=== PATIENT | male | born 1955 | race Caucasian/White ===

== ENCOUNTER → 2020-11-10 15:36 | Outpatient (BNVA) | payer MEDICARE, SELFPAY | PROVIDERS: Visit Provider Urology | DX: R97.20 Elevated prostate specific antigen [PSA] (principal) | CPT/HCPCS: Q3014 ==

== ENCOUNTER 2020-11-19 09:28 | Day surgery (SDC) | payer MEDICARE, BC, SELFPAY ==
[2020-11-15 15:12] VITALS: BMI 21.9
--- NOTE | 2020-11-17 09:33 | HO.ANESPROP2 ---
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 Past Medical History Medical History Daily consumption of alcohol Smoker Surgical History Surgical History Hx of colonoscopy Social History Social History (Updated 11/19/20 @ 11:07 by Leela Fried) Alcohol intake: current Alcohol intake frequency: 3 or more drinks per day Alcohol type: beer Smoking Status: Current every day smoker Tobacco Type: Cigar Years Smoked: 50 Smoked in Last 30 Days: Yes Use of substances other than those prescribed or required for medical reasons: Yes Substance Use Type: Marijuana Substance Use Frequency: Weekly Advance Directives: No Advance Directives Information Provided: No Advance Directives on File: No Meds Allergies Allergy/AdvReac Type Severity Reaction Status Date / Time No Known Allergies Allergy Verified 11/15/20 13:30 Home Medications Medication Instructions Recorded Confirmed Type ascorbic acid (vitamin C) [Vitamin 500 mg PO DAILY 11/15/20 11/15/20 History C] cholecalciferol (vitamin D3) 25 mcg PO DAILY 11/15/20 11/15/20 History [Vitamin D3] multivitamin 1 tab PO DAILY 11/15/20 11/15/20 History Exam Exam Date and Time: November 17, 2020 0933 Height,Weight and Vital Signs: Height 6 ft 3 in Weight 79.379 kg Assessment and Plan Assessment Anesthesia Assessment: Chart Reviewed Documented by User: Leela Fried 11/19/20 11:12 PENDING SALE TO [facility] Past Medical History Medical History Daily consumption of alcohol Smoker Family History Family history of problems with anesthesia: No Surgical History Surgical History Hx of colonoscopy History of Problems with Anesthesia: No Social History Social History (Updated 11/19/20 @ 11:07 by Leela Fried) Alcohol intake: current Alcohol intake frequency: 3 or more drinks per day Alcohol type: beer Smoking Status: Current every day smoker Tobacco Type: Cigar Years Smoked: 50 Smoked in Last 30 Days: Yes Use of substances other than those prescribed or required for medical reasons: Yes Substance Use Type: Marijuana Substance Use Frequency: Weekly Advance Directives: No Advance Directives Information Provided: No Advance Directives on File: No Meds Allergies Allergy/AdvReac Type Severity Reaction Status Date / Time No Known Allergies Allergy Verified 11/15/20 13:30 Home Medications Medication Instructions Recorded Confirmed Type ascorbic acid (vitamin C) [Vitamin 500 mg PO DAILY 11/15/20 11/15/20 History C] cholecalciferol (vitamin D3) 25 mcg PO DAILY 11/15/20 11/15/20 History [Vitamin D3] multivitamin 1 tab PO DAILY 11/15/20 11/15/20 History Exam Height,Weight and Vital Signs: Vital Signs Temp Pulse Resp BP Pulse Ox 11/19/20 10:24 97.4 F 80 16 126/76 99 Airway Mallampati Class: II TM Dist: >3cm Neck ROM: Full Loose/Missing/Broken Teeth: No Heart: RRR Lungs: CTAB Assessment and Plan Assessment Anesthesia Assessment: Anesthesia Plan Discussed and Chart Reviewed Final Anesthetic Review ASA Class: III Final Preanesthetic Review: No Changes in Pt Med Stat, Meds/Allgs Chart Reviewed, Consent Obtained/Reviewed and Anes Risks/Benef Reviewed Patient Risk: Low Procedure Risk: Low Assessment/Block/Sedation in SS: Assess/Block/Sedation-SS Anesthetic Plan Anesthetic Plan: MAC: Disposition: Standard PACU
[2020-11-19 10:24] VITALS: BP 126/76; PULSE 80; RESP 16; TEMP 36.3; O2SAT 99
[2020-11-19] MEDS: Lactated Ringers 1,000 ML 100 ML IVCONT (10:33)
--- NOTE | 2020-11-19 11:27 | MHC.SHP ---
Pre-Procedural Eval Section A The patient is an INPATIENT: No Changes since office visit: No Cold of Flu in the past 2 weeks, No New Medical Problems, No Changes in Medication and No Patient answered all questions The History & Physical has been completed within 30 days and I have reviewed it.: Yes Section B Chief Complaint: melena Allergies: Allergies Allergy/AdvReac Type Severity Reaction Status Date / Time No Known Allergies Allergy Verified 11/15/20 13:30 Plan I have reviewed the history and physical and performed a pertinent physical examination on my patient. No changes have occurred unless specified.
[2020-11-19 11:56] VITALS: BP 87/53; PULSE 72; RESP 16; TEMP 36.1; O2SAT 97
--- NOTE | 2020-11-19 11:58 | PM.OP ---
Brief Operative Note Date of Service: 11/19/20 Pre-op diagnosis: blood in stool Post-op diagnosis: other (colon polyp, avm) Procedure: colonoscopy Surgeon: Rene Abreu Anesthesia: MAC Estimated blood loss (mL): 0 Pathology: other (polyp r colon) Condition: stable Disposition: PACU
[2020-11-19 12:04] VITALS: BP 92/54; PULSE 65; RESP 16; O2SAT 97
--- NOTE | 2020-11-19 12:09 | OP_ITS ---
SURGEON: Rene Abreu MD INDICATIONS: Blood in the stool. PREOPERATIVE DIAGNOSIS: POSTOPERATIVE DIAGNOSIS: PROCEDURE PERFORMED: Colonoscopy to the cecum and into the terminal ileum with snare polypectomy. ESTIMATED BLOOD LOSS: COMPLICATIONS: ANESTHESIA: ASSISTANTS: SPECIMENS: MEDICATIONS: Monitored anesthesia care. DESCRIPTION OF PROCEDURE: History and physical performed. The risks and benefits of the procedure were explained to the patient. Informed consent was obtained. The patient was placed in the left lateral decubitus position. Digital rectal exam was performed and was found to be normal. The Olympus pediatric video colonoscope was introduced into the rectum and advanced to the cecum without difficulty. The cecum was identified by transillumination, palpation, and identification of ileocecal valve. Examination was performed and the scope was removed. He tolerated the procedure well and was taken to recovery area in stable condition. FINDINGS: The terminal ileum was briefly seen and appeared normal. In the cecum, was a 10 mm nonbleeding AVM. No therapy was performed. There was a polyp just above the ileocecal valve in the right colon, which measured approximately 6 mm, this was removed with a snare and recovered via suction. There was a large amount of liquid stool coating the mucosa in the right colon and transverse colon, this limited the sensitivity examination for detection of small polyps. This was washed and suctioned. No other polyps were identified. Retroflexed examination showed some internal hemorrhoids. IMPRESSION: 1. Colon polyp. 2. AVM, cecum. RECOMMENDATION: Follow up the biopsy results. MD TAMMI Ryder/WAGNER / [id number] MTDChristos
[2020-11-19 12:11] VITALS: BP 112/66; PULSE 72; RESP 16; TEMP 36.1; O2SAT 97
--- NOTE | 2020-11-19 13:46 | HO.POSTANES ---
Post Anesthesia Evaluation Post Anesthesia Evaluation Vital Signs: Vital Signs Temp Pulse Resp BP Pulse Ox 11/19/20 12:11 97 F 72 16 112/66 97 11/19/20 12:04 65 16 92/54 L 97 11/19/20 11:56 97 F 72 16 87/53 L 97 11/19/20 10:24 97.4 F 80 16 126/76 99 Anesthesia: Monitored Mental Status: Awake Pain Control: Satisfactory Nausea/Vomiting: None Hydration: Adequate Anesthesia-Related Issues: No Anes. Related Issues
== END 2020-11-19 12:44 | disposition home or self-care (01) ==
PROVIDERS: Visit Provider Internal Medicine Gastroenterology
PROC: 0DJD8ZZ Inspection of Lower Intestinal Tract, Via Natural or Artificial Opening Endoscopic (ICD-10-PCS; CPT 45378; principal; 2020-11-19 10:40)
DX: K92.1 Melena (principal); D12.0 Benign neoplasm of cecum; K55.20 Angiodysplasia of colon without hemorrhage; K64.8 Other hemorrhoids; F17.290 Nicotine dependence, other tobacco product, uncomplicated; F12.90 Cannabis use, unspecified, uncomplicated; J44.9 Chronic obstructive pulmonary disease, unspecified; Z79.51 Long term (current) use of inhaled steroids
CPT/HCPCS: 45385; 88305; J3010

== ENCOUNTER 2020-12-09 12:27 | Outpatient (REF) | payer MEDICARE, BC, SELFPAY ==
[2020-12-09 15:32] LABS: PSA,Total (Free>4and<10) 7.61 ng/mL (0.00-4.00)
[2020-12-10 10:52] LABS: Free Prostate Spec Ag 0.7 ng/mL; Percent Free Prostate Spec Ag 12 % (calc) (>25); Prostate Specific Ag Total 5.8 ng/mL (< OR = 4.0)
== END 2020-12-09 12:28 | disposition home or self-care (01) ==
LOC: HO.10HDL 12:27
PROVIDERS: Visit Provider Urology
DX: N40.1 Benign prostatic hyperplasia with lower urinary tract symptoms (principal); N13.8 Other obstructive and reflux uropathy; Z12.5 Encounter for screening for malignant neoplasm of prostate
CPT/HCPCS: 36415; 84153; 84154

== ENCOUNTER 2020-12-30 12:29 | Outpatient (REF) | payer MEDICARE, BC, SELFPAY ==
[2020-12-30 14:16] LABS: Prostate Specific Antigen 6.52 ng/mL (<0.05-4.0)
== END 2020-12-30 12:30 | disposition home or self-care (01) ==
LOC: HO.10HDL 12:29
PROVIDERS: Visit Provider Urology
DX: R97.20 Elevated prostate specific antigen [PSA] (principal); Z12.5 Encounter for screening for malignant neoplasm of prostate
CPT/HCPCS: 36415; 84153

== ENCOUNTER → 2021-01-07 16:02 | Outpatient (BNVA) | payer MEDICARE, BC, SELFPAY | PROVIDERS: Visit Provider Urology | DX: Z13.89 Encounter for screening for other disorder (principal) | CPT/HCPCS: 99212 ==

== ENCOUNTER 2021-05-04 12:54 | Outpatient (REF) | payer MEDICARE, BC, SELFPAY ==
[2021-05-04 14:03] LABS: PSA,Total (Free>4and<10) 6.08 ng/mL (0.00-4.00)
[2021-05-05 11:32] LABS: Free Prostate Spec Ag 0.9 ng/mL; Percent Free Prostate Spec Ag 16 % (calc) (>25); Prostate Specific Ag Total 5.5 ng/mL (< OR = 4.0)
== END 2021-05-04 12:55 | disposition home or self-care (01) ==
LOC: HO.10HDL 12:54
PROVIDERS: Visit Provider Urology
DX: N40.1 Benign prostatic hyperplasia with lower urinary tract symptoms (principal); N13.8 Other obstructive and reflux uropathy; R97.20 Elevated prostate specific antigen [PSA]
CPT/HCPCS: 36415; 84153; 84154

== ENCOUNTER → 2021-05-12 15:32 | Outpatient (BNVA) | payer MEDICARE, BC, SELFPAY | PROVIDERS: Visit Provider Urology | DX: N40.1 Benign prostatic hyperplasia with lower urinary tract symptoms (principal); N13.8 Other obstructive and reflux uropathy; R97.20 Elevated prostate specific antigen [PSA] | CPT/HCPCS: 99212 ==

== ENCOUNTER 2021-07-15 10:20 | Emergency (ER) | payer MEDICARE, BC, SELFPAY ==
--- NOTE | ~2021-07-15 | XR_ITS ---
EXAMINATION: XR HIP, RIGHT CLINICAL INFORMATION: Fall COMPARISON: None TECHNIQUE: AP pelvis and 2 views of the right hip of the right hip. FINDINGS: There is no evidence of acute fracture or diastases of the pelvis. Sacroiliac joints unremarkable. Degenerative disc disease with facet arthropathy seen L4-S1. The left hip joint space appears maintained. Subchondral cyst formation with some degenerative spurring is seen about the superior femoral head. There is calcification about the superior lateral aspect of the femoral head and neck. No fracture is appreciated. Views of the right hip do not demonstrate any evidence of acute fracture or dislocation. No abnormality of the femoral head is appreciated. Hip joint spaces maintained. Calcification about the superior aspect of the humeral head and neck present. XR/XR hip RT w PEL1V IMPRESSION: No acute fracture or diastases of the pelvis. No acute fracture or dislocation of the right hip. Degenerative calcifications about the superior aspects of the femoral head and necks bilaterally.
[2021-07-15 10:25] VITALS: BP 113/72; PULSE 74; RESP 18; TEMP 36.6; O2SAT 98; BMI 21.2
--- NOTE | 2021-07-15 10:37 | ED_ITS ---
HPI - Extremity Injury (Lower) General Chief Complaint: Extremity Injury, Lower Stated Complaint: FALL R HIP PAIN Time Seen by Provider: 07/15/21 10:27 Source: patient and family Mode of arrival: ambulatory History of Present Illness HPI Narrative: 65-year-old male presents without significant past medical history other than being a regular every other day alcohol drinker. He presents after having fallen approximately 3 days ago when he was pulling weeds and fell onto his right hip. Patient states that initially he was fine but he has progressively had increasing pain as well as difficulty with walking. He denies any pain radiating down his leg but has had difficulty with flexion of his right lower extremity at the hip. Otherwise, he denies any fever, chills, dysuria, abdominal pain. Related Data Home Medications Medication Instructions Recorded Confirmed ascorbic acid (vitamin C) 500 mg 500 mg PO DAILY 11/15/20 11/15/20 tablet (Vitamin C) cholecalciferol (vitamin D3) 25 25 mcg PO DAILY 11/15/20 11/15/20 mcg (1,000 unit) tablet (Vitamin D3) multivitamin 1 tab PO DAILY 11/15/20 11/15/20 Previous Rx's Medication Instructions Recorded finasteride 5 mg tablet 5 mg PO DAILY 90 Days #90 tab 05/12/21 ketorolac 10 mg tablet 10 mg PO Q6H PRN 5 Days #20 tab 07/15/21 Allergies Allergy/AdvReac Type Severity Reaction Status Date / Time No Known Allergies Allergy Verified 11/15/20 13:30 Review of Systems Review of Systems: Pertinent positives and negatives as stated in HPI 10 point review of systems is otherwise negative. [facility] Past Medical History Source: nursing notes reviewed Medical History Daily consumption of alcohol Smoker Surgical History Hx of colonoscopy Social History Social History Alcohol intake: current Alcohol intake frequency: 3 or more drinks per day Alcohol type: beer Years Smoked: 50 Substance Use Type: Marijuana Advance Directives: Yes Advance Directives Information Provided: Yes Advance Directives on File: No Physical Exam Vital Signs: Vital Signs: Last Vital Signs Temp 98.2 F 07/15/21 11:20 Pulse 74 07/15/21 11:20 Resp 18 07/15/21 11:20 BP 116/66 09/03/21 11:20 Pulse Ox 97 07/15/21 11:20 Body Mass Index 21.2 VITAL SIGNS: Reviewed. GENERAL: Well developed, well nourished, in no acute distress. HEAD: Normocephalic/atraumatic EYES: PERRLA, EOMI OROPHARYNX: no oral lesions noted, posterior pharynx clear LUNGS: Normal breath sounds. No adventitious sounds or accessory muscle use. SpO2<98> CARDIOVASCULAR: Regular rate and rhythm without noted murmurs ABDOMEN: Soft, non-tender, non-distended with bowel sounds. RIGHT HIP/LOWER EXTREMITY: No obvious deformity, pain on palpation, palpable DP/PT/popliteal, capillary refill less than 3 seconds, sensation is intact. NEUROLOGIC: Alert and oriented x 4. Strength and sensation to light touch were grossly intact x 4. Course Course Course Narrative: 65-year-old male with history and clinical presentation s uggestive of possible occult fracture verses bursitis. On review of all investigations there are no acute findings to suggest acute fracture or dislocation. Patient was provided with combination analgesics and on re-evaluation is had good improvement in his pain. Discharge Plan Discharge Clinical Impression: Arthritis, Bursitis Patient Disposition: Home, Self-Care Instructions: Hip Bursitis (ED), Arthritis (ED) Additional Instructions: 1. Tylenol 1000 mg, orally, every 6 hours as needed for pain control. Do not exceed 4000 mg within 24 hours. Recommend taking the Tylenol in combination with the prescribed medication for added benefit and pain relief. 2. Lidocaine patch, available [id number], apply to area of maximal tenderness as directed on the outside packaging. 3. Follow-up with your primary care provider in the next 2-3 days for re- evaluation. Return to the ER for acute worsening of symptoms. Prescriptions: New ketorolac 10 mg tablet 10 mg PO Q6H PRN (Reason: pain) 5 Days Qty: 20 RF: 0 No Action multivitamin Tablet 1 tab PO DAILY RF: 0 ascorbic acid (vitamin C) [Vitamin C] 500 mg Tablet 500 mg PO DAILY RF: 0 cholecalciferol (vitamin D3) [Vitamin D3] 25 mcg (1,000 unit) Tablet 25 mcg PO DAILY RF: 0 finasteride 5 mg tablet 5 mg PO DAILY 90 Days Qty: 90 RF: 1 Referrals: Alisha Maldonado MD [Primary Care Provider] - 2 days
[2021-07-15 11:20] VITALS: BP 116/66; PULSE 74; RESP 18; TEMP 36.8; O2SAT 97
[2021-07-15] MEDS: Ketorolac Tromethamine 15 MG/ML VIAL IM (11:21)
[2021-07-15] MEDS: Acetaminophen 325 MG TABLET 975 MG PO (11:22)
[2021-07-15] MEDS: Lidocaine 4 % Patch ADH..PATCH 1 PATCH TRANSDERMA (11:41)
== END 2021-07-15 12:18 | disposition home or self-care (01) ==
PROVIDERS: Emergency Provider Student in an Organized Health Care Education/Training Program; PCP Family Medicine
DX: M16.31 Unilateral osteoarthritis resulting from hip dysplasia, right hip (principal); M70.71 Other bursitis of hip, right hip; Y93.H2 Activity, gardening and landscaping
CPT/HCPCS: 73502; 96372; 99284; J1885

== ENCOUNTER 2021-08-19 09:55 | Outpatient (REF) | payer MEDICARE, BC, SELFPAY ==
[2021-08-19 14:25] LABS: PSA,Total (Free>4and<10) 4.96 ng/mL (0.00-4.00)
[2021-08-23 12:45] LABS: Free Prostate Spec Ag 0.4 ng/mL; Percent Free Prostate Spec Ag 9 % (calc) (>25); Prostate Specific Ag Total 4.4 ng/mL (< OR = 4.0)
== END 2021-08-19 09:56 | disposition home or self-care (01) ==
LOC: HO.10HDL 09:55
PROVIDERS: Visit Provider Urology
DX: Z12.5 Encounter for screening for malignant neoplasm of prostate (principal); N40.1 Benign prostatic hyperplasia with lower urinary tract symptoms; N13.8 Other obstructive and reflux uropathy
CPT/HCPCS: 36415; 84153; 84154

== ENCOUNTER → 2021-08-30 14:32 | Outpatient (BNVA) | payer MEDICARE, BC, SELFPAY | PROVIDERS: PCP Family Medicine; Visit Provider Urology | DX: R97.20 Elevated prostate specific antigen [PSA] (principal) | CPT/HCPCS: 99212 ==

== ENCOUNTER 2021-09-21 07:32 | Outpatient (REF) | payer MEDICARE, BC, SELFPAY ==
[2021-09-21 07:39] VITALS: BMI 21.2
[2021-09-21 07:40] VITALS: BP 124/68; PULSE 92; RESP 16; TEMP 36.7; O2SAT 98
--- NOTE | 2021-09-21 08:29 | W.PM.OPN ---
Operative Note Operative Note Date of Service: 09/21/21 Narrative: Preoperative diagnosis: Elevated PSA Postoperative diagnosis: Elevated PSA Procedure: 1. transrectal ultrasound measurement of prostate 2. transrectal ultrasound-guided pudendal nerve block 3. transrectal ultrasound-guided prostate biopsy 12 core Surgeon: Dr. Peter Valencia Anesthetic: Local Indications for procedure: Elevated PSA - 4.96 Procedure: After informed consent was verified, the patient was brought into the procedure area and lay left-hand side down on the table. Patient identity confirmed. Perioperative antibiotics confirmed. Iodine 10cc with Gel was placed per rectum Ultrasound probe was placed per rectum The prostate was measured in 3 dimensions Total volume equals 45 gm There were small cystic structures on left side and no calcifications noted and the prostate was homogeneous in nature A ultrasound-guided pudendal nerve block was performed using 10 cc of 1% lidocaine. 8 cc was placed at the base and 2 cc of the apex. A 12 core biopsy was performed with 6 cores each side. Two cores were taken at the apex, mid and base. Cores were spaced between lateral and medial. He tolerated the procedure well. Was able to ambulate to bathroom after 5 minutes. Printed instructions regarding antibiotic use and common side effects such as low-grade temperature and bleeding were given Pathology: 12 core prostate biopsy.
[2021-09-21 08:30] VITALS: BP 116/65; PULSE 77; RESP 16; O2SAT 97
== END 2021-09-21 07:33 | disposition home or self-care (01) ==
LOC: HO.MS 07:32
PROVIDERS: PCP Family Medicine; Visit Provider Urology
PROC: (CPT 55700; principal; 2021-09-21 08:00)
DX: R97.20 Elevated prostate specific antigen [PSA] (principal)
CPT/HCPCS: 55700; 76942; 88305

== ENCOUNTER → 2021-09-29 09:07 | Outpatient (BNVA) | payer MEDICARE, BC, SELFPAY | PROVIDERS: PCP Family Medicine; Visit Provider Urology | DX: N40.1 Benign prostatic hyperplasia with lower urinary tract symptoms (principal); N13.8 Other obstructive and reflux uropathy; R97.20 Elevated prostate specific antigen [PSA] | CPT/HCPCS: Q3014 ==

== ENCOUNTER 2022-04-03 10:59 | Outpatient (REF) | payer MEDICARE, BC, SELFPAY ==
[2022-04-03 13:52] LABS: PSA,Total (Free>4and<10) 5.87 ng/mL (0.00-4.00)
[2022-04-05 11:12] LABS: Free Prostate Spec Ag 0.7 ng/mL; Percent Free Prostate Spec Ag 12 % (calc) (>25)
== END 2022-04-03 11:00 | disposition home or self-care (01) ==
LOC: HO.10HDL 10:59
PROVIDERS: Visit Provider Urology
DX: Z12.5 Encounter for screening for malignant neoplasm of prostate (principal); N40.1 Benign prostatic hyperplasia with lower urinary tract symptoms; N13.8 Other obstructive and reflux uropathy
CPT/HCPCS: 36415; 84153; 84154

== ENCOUNTER 2022-04-11 11:34 | Outpatient (AMB) | payer MEDICARE, BC, SELFPAY ==
--- NOTE | 2022-04-11 11:43 | A.OFFVIS_ITS ---
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 He is a patient of Dr. Diaz. He is seen for the following urologic conditions - elevated PSA - lower urinary tract symptoms PSA 5.9 Elevated PSA remains on finasteride He presents for - further evaluation of elevated PSA Current management is finasteride Laboratory investigations include - a total PSA evaluation - 10/01 6.65 - November 2020 7.6, 01/02 6.5, 05/02 6.1, 09/01 4.9 9%, 04/02 5.9 Imaging investigations none performed Individualized Prostate Cancer Risk Calculator - 5-10% high risk A TRUS biopsy - 10/02 NAD 12 core, 45gm Symptoms include - feeling of weak stream, intermittency. 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 Review of Systems Const Denies chills and Denies fever(s) Card Reports no additional complaints and Denies syncope Resp Denies cough GI Denies abdominal pain and Denies heartburn Reports as per HPI and Denies change in libido Neuro Denies syncope Psych Denies change in libido Endo Denies change in libido Physical Exam Const General: cooperative, healthy appearing, comfortable and no acute distress Orientation/consciousness: patient oriented x3 HEENT Face and sinus: Yes normal facial exam Mouth: moist mucous membranes Neck Neck: Yes normal visual inspection, Yes full ROM and Yes trachea midline Chest Chest palpation & inspection: normal inspection of the chest Resp Effort & Inspection: normal respiratory effort, able to speak in complete sentences and no respiratory distress GI Inspection: Yes normal to inspection Back/Spine/Pelvis Cervical Spine: normal cervical lordosis Thoracic/Lumbar Spine: thoracic and lumbar spine normal to inspection Skin General skin exam: no rashes or lesions noted Neuro General: patient oriented x3, gait normal, tone normal and moves all extremities Extrem General: Yes normal to inspection and Yes capillary refill normal Office Procedures Post Void Residual Post Residual Void Post Void Residual (PVR): 0 [id number] Void Residual by ultrasound Results AMB Urinalysis, Automated UA Leukoctes 0 Herlinda/uL Last Edit by Deion Michaud on 04/11/22 11:58 UA Nitrite Negative Last Edit by Deion Michaud on 04/11/22 11:58 UA Urobilinogen 0.2 mg/dL Last Edit by Deion Michaud on 04/11/22 11:58 UA Protein 0 mg/dL Last Edit by Deion Michaud on 04/11/22 11:58 UA pH 6.0 Last Edit by Deion Michaud on 04/11/22 11:58 UA Blood 0 Armando/uL Last Edit by Deion Michaud on 04/11/22 11:58 UA Specific [place] 1.025 Last Edit by Deion Michaud on 04/11/22 11:58 UA Ketone Negative Last Edit by Deion Michaud on 04/11/22 11:58 UA Bilirubin 0 mg/dL Last Edit by Deion Michaud on 04/11/22 11:58 UA Glucose 250 mg/dL Last Edit by Deion Michaud on 04/11/22 11:58 Results Reviewed Results Reviewed: Laboratory Last Values Urine pH (Auto) 6.0 04/11/22 11:44 Specific [place] (Auto) 1.025 04/11/22 11:44 Urine Protein (Auto) 0 mg/dL 04/11/22 11:44 Glucose (UA)(Auto) 250 mg/dL 04/11/22 11:44 Urine Ketones (Auto) Negative 04/11/22 11:44 Urine Blood (Auto) 0 Armando/uL 04/11/22 11:44 Urine Nitrite (Auto) Negative 04/11/22 11:44 Urine Bilirubin (Auto) 0 mg/dL 04/11/22 11:44 Urine Urobilinogen (Auto) 0.2 mg/dL 04/11/22 11:44 Leukocyte Esterase (Auto) 0 Herlinda/uL 04/11/22 11:44 Assessment & Plan Assessment & Plan (1) Elevated PSA: Comment: prostate biopsy September 2021 negative Code(s): R97.20 - Elevated prostate specific antigen [PSA] (2) BPH w urinary obs/LUTS: Code(s): N40.1 - Benign prostatic hyperplasia with lower urinary tract symptoms; N13.8 - Other obstructive and reflux uropathy Plan 4 month follow-up PSA and MRI Orders: Orders PSA,Total (Free>4and<10) 4 Months R97.20 - Elevated prostate specific antigen [PSA] Blood Urea Nitrogen 4 Months R97.20 - Elevated prostate specific antigen [PSA] Creatinine 4 Months R97.20 - Elevated prostate specific antigen [PSA] MR pelvis wo/w con 4 Months R97.20 - Elevated prostate specific antigen [PSA] AMB Urinalysis Automated 04/11/22 Z13.9 - Encounter for screening, unspecified AMB Post Void Residual by ultrasound 04/11/22 N40.1 - Benign prostatic hyperplasia with lower urinary tract symptoms, N13.8 - Other obstructive and reflux uropathy Medications: Refilled finasteride 5 mg PO DAILY 90 tabs 1RF 90 days N40.1 - Benign prostatic hyperplasia with lower urinary tract symptoms Patient Instructions: Imaging studies, laboratory and physical exam results were discussed and reviewed in detail. No major barriers to patient understanding were identified. An opportunity to ask questions regarding the treatment plan was provided. All questions were answered. The patient expressed understanding and agreement with the above treatment plan. The patient is aware they should contact our office by phone for worsening of their current condition or the appearance of new urologic symptoms. Compliance is encouraged with any medications and followup testing that is ordered. It is a privilege to participate in the urologic care of your patient. If you have any questions or concerns regarding treatment for the above conditions, or other urologic issues, please do not hesitate to contact me. The office telephone contact is [phone]. This note is constructed using voice recognition software. While every effort has been made to ensure accuracy supervisory it specialist errors may have been included. Yours sincerely, Dr Peter Valencia MD, [facility] - Urology Providers of Expert, Compassionate Care for the Genitourinary System Coding Level of Care Code Est Pt Level 3 (72544) Diagnoses Elevated PSA R97.20 BPH w urinary obs/LUTS N40.1; N13.8 CPT Codes Post Residual Void - PVR CPT Code: 31708-Qqfd Void Residual by ultrasound ([id number])
== END 2022-04-11 12:12 | disposition home or self-care (01) ==
LOC: HO.HUSH 11:34
PROVIDERS: PCP Family Medicine; Visit Provider Urology
DX: R97.20 Elevated prostate specific antigen [PSA] (principal); N40.1 Benign prostatic hyperplasia with lower urinary tract symptoms; N13.8 Other obstructive and reflux uropathy
CPT/HCPCS: 99213

== ENCOUNTER → 2022-04-11 11:34 | Outpatient (BNVA) | payer MEDICARE, BC, SELFPAY | PROVIDERS: PCP Family Medicine; Visit Provider Urology | DX: R97.20 Elevated prostate specific antigen [PSA] (principal); N40.1 Benign prostatic hyperplasia with lower urinary tract symptoms; N13.8 Other obstructive and reflux uropathy | CPT/HCPCS: 51798; 99212 ==

== ENCOUNTER 2022-04-20 12:04 | Emergency (ER) | payer MEDICARE, BC, SELFPAY ==
--- NOTE | ~2022-04-20 | XR_ITS ---
EXAMINATION: XR FOOT, LEFT XR ANKLE, LEFT CLINICAL INFORMATION: Pain COMPARISON: None TECHNIQUE: 2 views of the left ankle 3 views of the left foot FINDINGS: No acute visible fracture or dislocation. Ankle mortise is symmetric. Joint spaces and alignment are maintained. Soft tissues are unremarkable. XR/XR foot LT min 3V IMPRESSION: No acute visible fracture or dislocation.
--- NOTE | ~2022-04-20 | XR_ITS ---
EXAMINATION: XR FOOT, LEFT XR ANKLE, LEFT CLINICAL INFORMATION: Pain COMPARISON: None TECHNIQUE: 2 views of the left ankle 3 views of the left foot FINDINGS: No acute visible fracture or dislocation. Ankle mortise is symmetric. Joint spaces and alignment are maintained. Soft tissues are unremarkable. XR/XR ankle LT min 3V IMPRESSION: No acute visible fracture or dislocation.
[2022-04-20 12:13] VITALS: BP 123/70; PULSE 91; RESP 18; TEMP 36.9; O2SAT 97; BMI 22.5
--- NOTE | 2022-04-20 13:33 | ED.LOWEXIN ---
HPI - Extremity Injury (Lower) General Chief Complaint: Extremity Injury, Lower Stated Complaint: left foot pain Time Seen by Provider: 04/20/22 13:32 Source: patient Mode of arrival: ambulatory Limitations: no limitations History of Present Illness HPI Narrative: 66-year-old male presents for left foot pain that was atraumatic that started yesterday morning. Patient woke up with some pain in his left foot, the pain resolved, and he spent all day working in his yd. He had no pain yesterday. Then this morning, patient awoke, and had pain in his foot. Denies any trauma, denies any injury, no fevers. patient does drink alcohol, drinks at least 6 beers a day. Related Data Home Medications Medication Instructions Recorded Confirmed ascorbic acid (vitamin C) 500 mg 500 mg PO DAILY 11/15/20 11/15/20 tablet (Vitamin C) cholecalciferol (vitamin D3) 25 25 mcg PO DAILY 11/15/20 11/15/20 mcg (1,000 unit) tablet (Vitamin D3) multivitamin 1 tab PO DAILY 11/15/20 11/15/20 Previous Rx's Medication Instructions Recorded ketorolac 10 mg tablet 10 mg PO Q6H PRN pain 5 days #20 07/15/21 tabs sulfamethoxazole 800 1 tab PO BID 3 days #6 tabs 09/13/21 mg-trimethoprim 160 mg tablet (Bactrim DS) finasteride 5 mg tablet 5 mg PO DAILY 90 days #90 tabs 04/11/22 prednisone 20 mg tablet 40 mg PO DAILY 5 days #10 tabs 04/20/22 Allergies Allergy/AdvReac Type Severity Reaction Status Date / Time No Known Allergies Allergy Verified 04/20/22 12:13 Review of Systems Constitutional: Constitutional: Denies body ache(s), Denies chills, Denies fatigue, Denies fever(s), Denies malaise and Denies weakness Eyes: Eyes: Denies diplopia Cardiovascular: Cardiovascular: Denies chest pain, Denies syncope, Denies leg edema, Denies lightheadedness, Denies Loss of Consciousness, Denies palpitations and Denies dyspnea Respiratory: Respiratory: Denies chest congestion, Denies cough and Denies dyspnea Musculoskeletal: Musculoskeletal: Reports numbness ( Bottoms of bilateral feet) and Denies tingling Comments: left foot pain Neurologic: Denies confusion, Denies syncope, Reports numbness ( Bottoms of bilateral feet), Denies tingling and Denies weakness Psychiatric: Psychiatric: Denies anxiety, Denies confusion and Denies depression Endocrine: Endocrine: Denies fatigue and Denies palpitations PMFSH Past Medical History Medical History Daily consumption of alcohol Smoker Surgical History Hx of colonoscopy Social History Social History Alcohol intake: current Alcohol intake frequency: 3 or more drinks per day Alcohol type: beer Years Smoked: 50 Substance Use Type: Marijuana Advance Directives: No Advance Directives Information Provided: No Physical Exam Vital Signs: Vital Signs: Last Vital Signs Temp 98.4 F 04/20/22 12:13 Pulse 91 04/20/22 12:13 Resp 18 04/20/22 12:13 BP 123/70 04/20/22 12:13 Pulse Ox 97 04/20/22 12:13 O2 Del Method 04/20/22 12:13 BMI result Body Mass Index 22.5 Const: General: No confusion Nutritional Appearance: well nourished Orientation/consciousness: No confusion Limitations: no limitations Eyes: Conjunctivae: conjunctivae normal Pupils: Equal, round and reactive pupils present EOM: EOMs intact bilaterally Neck: Neck: Yes full ROM, Yes no lymphadenopathy and Yes supple Resp: Effort & Inspection: normal respiratory effort and able to speak in complete sentences Auscultation: clear to auscultation bilaterally, no crackles, no rales, no rhonchi and no wheezes Cardio: Rate: regular rate Rhythm: regular rhythm Heart sounds: S1 normal heart sound present and S2 normal heart sound present Skin: Other: warmth, swelling, mild erythema around left ankle joint, but both medial and lateral sides Neuro: General: No confusion Cranial nerves: Yes Equal, round and reactive pupils present Extrem: Left lower extremity: normal capillary refill and ankle Details: abnormal to inspection, tenderness Location: of the lateral malleolus, of the medial malleolus, of the anterior talofibular ligament and other and warmth; no ecchymosis and no crepitus Psych: Appearance: grossly normal Affect: normal affect Attitude: cooperative Thought process: Normal thought process present Course Course Course Narrative: 66-year-old male who drinks a fair amount of alcohol presents for left foot pain and swelling that is atraumatic. On exam, patient has stable vitals, left ankle is red, mildly warm, swollen bilaterally. Tender to palpate bilaterally. Metatarsals are not tender. Patient has intact lower extremity pulses, sensation, motor strength, and DTRs. Ankle is painful to do range of motion. Will get CBC to rule out infection, uric acid for possibility of gout, left foot x-ray gave Tylenol for pain Reevaluation(s) Reevaluation #1: FINDINGS: No acute visible fracture or dislocation. Ankle mortise is symmetric. Joint spaces and alignment are maintained. Soft tissues are unremarkable. XR/XR ankle LT min 3V IMPRESSION: No acute visible fracture or dislocation.? patient has a uric acid of 5.5 and a leukocytosis of 11.3. Elevated white blood cell count could be reactive and inflammatory rather than an infectious process. X-ray shows no fracture or effusion. Patient has had no STD history, he has no fever, he does not feel ill. He has no history of gout, no history of osteoarthritis. Discussed with Dr. Lunsford if this could be a septic arthritis, Dr Lunsford said it was rare to have as septic ankle. However, we will have the patient return in 2 days for re-evaluation. Dr Lunsford did not think the ankle needed aspiration at this time. Will treat with prednisone, walking boot, counseled patient to return in 2 days, and to return sooner if he has fevers, feels ill, or for any other new or concerning symptoms. Patient verbalized agreement and understanding of the plan MDM - Extremity Injury (Lower) Lab Data Result diagrams: 04/20/22 13:48 04/20/22 13:48 Labs: Lab Results 04/20/22 04/20/22 Range/Units 13:48 13:48 WBC 11.3 H (4.8-10.8) X10*3/uL RBC 4.54 L (4.60-5.80) X10*6/uL Hgb 14.1 (14.0-18.0) g/dl Hct 42.9 (42.0-52.0) % MCV 94.5 (80.0-98.0) fL MCH 31.1 (27.0-33.0) pg MCHC 32.9 (31.0-36.0) g/dl RDW 13.2 (11.0-16.0) % Plt Count 203 (160-400) X10*3/uL MPV 11.2 (9.4-12.4) fL Immature Gran % (Auto) 0.4 (0.0-0.4) % Neut % (Auto) 84.2 H (45-73) % Lymph % (Auto) 8.3 L (20-40) % [place] % (Auto) 6.7 (2-11) % Eos % (Auto) 0.1 (0-4) % Baso % (Auto) 0.3 (0-2) % Lymph # (Auto) 0.9 L (1.2-4.9) X10*3/uL [place] # (Auto) 0.8 (0.1-1.2) X10*3/uL Eos # (Auto) 0.0 (0.0-0.4) X10*3/uL Baso # (Auto) 0.0 (0.0-0.2) X10*3/uL Abs Immat Gran (auto) 0.04 H (0.00-0.03) X10*3/uL Absolute Neuts (auto) 9.5 H (2.0-8.3) x10*3/uL Absolute Nucleated RBC 0.000 (0.0-0.012) X10*3/uL Nucleated RBC % (auto) 0.0 (0.0-0.2) /100WBC Sodium 139 (135-145) mmol/L Potassium 4.3 (3.3-5.1) mmol/L Chloride 105 (96-108) mmol/L Carbon Dioxide 26 (22-29) mmol/L Anion Gap 12 (12-20) BUN 15 (9-16) mg/dL Creatinine 0.91 (0.5-1.4) mg/dL Estim Creat Clear Calc 90.9 Estimated GFR > 60 Random Glucose 112 (60-115) mg/dL Uric Acid 5.5 (3.4-7.0) mg/dL Calcium 9.0 (8.4-10.2) mg/dL Total Bilirubin 0.8 (0.0-1.0) mg/dL AST 17 (5-37) U/L ALT 17 (0-40) U/L Alkaline Phosphatase 78 (39-117) U/L Total Protein 6.9 (6.5-8.0) g/dL Albumin 4.1 (3.5-5.0) g/dL Discharge Plan Discharge Clinical Impression: Pain and swelling of left ankle Patient Disposition: Home, Self-Care Additional Instructions: the pain in your left ankle may be due to an inflammatory process from arthritis. It is unlikely gout, however the prednisone will treat the inflammation for both an arthritis flare and for gout. It is unlikely this is a septic joint, however if you have fevers or feel ill return to the emergency room right away. Otherwise, I want you to return on Sunday, April 22, for re-evaluation of your ankle. We decided not to stick a needle in it and draw out fluid for lab testing, however if your ankle is worse on Sunday, we may decide to do that. Prescriptions: New prednisone 20 mg tablet 40 mg PO DAILY 5 Days Qty: 10 0RF No Action sulfamethoxazole-trimethoprim [Bactrim DS] 800-160 mg tablet 1 tab PO BID 3 Days Qty: 6 0RF Rx Instructions: Take antibiotics day before, day of, and day after procedure multivitamin Tablet 1 tab PO DAILY ascorbic acid (vitamin C) [Vitamin C] 500 mg Tablet 500 mg PO DAILY cholecalciferol (vitamin D3) [Vitamin D3] 25 mcg (1,000 unit) Tablet 25 mcg PO DAILY ketorolac 10 mg tablet 10 mg PO Q6H PRN (Reason: pain) 5 Days Qty: 20 0RF Rx Instructions: Patient received Toradol in the emergency room. finasteride 5 mg tablet 5 mg PO DAILY 90 Days Qty: 90 1RF
[2022-04-20 13:52] LABS: MANUAL DIFF FLAG NO
[2022-04-20 13:54] LABS: Basophils Percent Auto 0.3 % (0-2); Eosinophils Percent Auto 0.1 % (0-4); Hematocrit 42.9 % (42.0-52.0); Hemoglobin 14.1 g/dl (14.0-18.0); Imm Gran Abs Auto 0.04 X10*3/uL (0.00-0.03); Imm Gran Pct Auto 0.4 % (0.0-0.4); Lymphocytes Absolute Auto 0.9 X10*3/uL (1.2-4.9); Lymphocytes Percent Auto 8.3 % (20-40); Mean Corpuscular HGB Conc 32.9 g/dl (31.0-36.0); Mean Corpuscular Hemoglobin 31.1 pg (27.0-33.0); Mean Corpuscular Volume 94.5 fL (80.0-98.0); Mean Platelet Volume 11.2 fL (9.4-12.4); Monocytes Absolute Auto 0.8 X10*3/uL (0.1-1.2); Monocytes Percent Auto 6.7 % (2-11); Neutrophils Absolute Auto 9.5 x10*3/uL (2.0-8.3); Neutrophils Percent Auto 84.2 % (45-73); Platelet Count 203 X10*3/uL (160-400); Red Blood Count 4.54 X10*6/uL (4.60-5.80); Red Cell Distribution Width 13.2 % (11.0-16.0); White Blood Count 11.3 X10*3/uL (4.8-10.8)
[2022-04-20] MEDS: Acetaminophen 325 MG TABLET 650 MG PO (13:59)
[2022-04-20 14:09] LABS: Alanine Aminotransferase 17 U/L (0-40); Albumin Level 4.1 g/dL (3.5-5.0); Alkaline Phosphatase 78 U/L (39-117); Anion Gap 12 (12-20); Aspartate Amino Transferase 17 U/L (5-37); Bilirubin Total 0.8 mg/dL (0.0-1.0); Blood Urea Nitrogen 15 mg/dL (9-16); Carbon Dioxide 26 mmol/L (22-29); Chloride 105 mmol/L (96-108); Creatinine Clr Calc Pharmacy 90.9; Estimated Glomerular Filt Rate > 60; Glucose Random 112 mg/dL (60-115); Potassium 4.3 mmol/L (3.3-5.1); Sodium 139 mmol/L (135-145); Total Protein 6.9 g/dL (6.5-8.0); Uric Acid 5.5 mg/dL (3.4-7.0)
== END 2022-04-20 16:18 | disposition home or self-care (01) ==
PROVIDERS: Physician Assistant; Emergency Provider Emergency Medicine; PCP Family Medicine
DX: M79.672 Pain in left foot (principal); R22.42 Localized swelling, mass and lump, left lower limb; F17.200 Nicotine dependence, unspecified, uncomplicated
CPT/HCPCS: 36415; 73610; 73630; 80053; 84550; 85025; 99283

== ENCOUNTER 2022-04-22 07:15 | Emergency (ER) | payer MEDICARE, BC, SELFPAY ==
[2022-04-22 07:21] VITALS: BP 130/82; PULSE 77; RESP 17; TEMP 36.7; O2SAT 98
[2022-04-22 07:32] VITALS: BP 127/82; PULSE 74; RESP 20; TEMP 36.8; O2SAT 99; BMI 23.1
--- NOTE | 2022-04-22 08:20 | ED_ITS ---
HPI - General Adult General Chief complaint: Wound/Laceration Stated complaint: recheck foot Time Seen by Provider: 04/22/22 08:05 Source: patient Mode of arrival: ambulatory History of Present Illness HPI narrative: 66-year-old male with no significant past medical history presenting to ED for left foot/ankle re-evaluation. Patient was evaluated in our ED on 04/20/22 for atraumatic left ankle/foot pain and swelling, suspected to be gout vs inflammatory arthritis, discharged on prednisone. Patient admits swelling has persisted with mild increase, now with erythema, however pain improved. Denies known injury/trauma or fall, new or worsening numbness/weakness, fever, chills, drainage from area. Reports yesterday was unable to bear weight until taking Tylenol which is providing pain relief Onset (ago): day(s) Related Data Home Medications Medication Instructions Recorded Confirmed ascorbic acid (vitamin C) 500 mg 500 mg PO DAILY 11/15/20 11/15/20 tablet (Vitamin C) cholecalciferol (vitamin D3) 25 25 mcg PO DAILY 11/15/20 11/15/20 mcg (1,000 unit) tablet (Vitamin D3) multivitamin 1 tab PO DAILY 11/15/20 11/15/20 Previous Rx's Medication Instructions Recorded ketorolac 10 mg tablet 10 mg PO Q6H PRN pain 5 days #20 07/15/21 tabs sulfamethoxazole 800 1 tab PO BID 3 days #6 tabs 09/13/21 mg-trimethoprim 160 mg tablet (Bactrim DS) finasteride 5 mg tablet 5 mg PO DAILY 90 days #90 tabs 04/11/22 prednisone 20 mg tablet 40 mg PO DAILY 5 days #10 tabs 04/20/22 cephalexin 500 mg capsule 500 mg PO QID 7 days #28 caps 04/22/22 doxycycline hyclate 100 mg tablet 100 mg PO BID 7 days #14 tabs 04/22/22 Allergies Allergy/AdvReac Type Severity Reaction Status Date / Time No Known Allergies Allergy Verified 04/20/22 12:13 Review of Systems Review of Systems: Constitutional: No Fever, No Chills, No Fatigue, No Malaise ENT/Mouth: No Hearing loss, No Ear Pain, No sore throat, No Rhinorrhea, No Swallowing Difficulty Eyes: No Eye Pain, No Swelling, No Redness Cardiovascular: No Chest Pain, No SOB, No Edema, No Palpitations Respiratory: No Cough, No Sputum, No Dyspnea Gastrointestinal: No Nausea, No Vomiting, No Diarrhea, No Constipation, No Abdominal pain Genitourinary: No Dysuria, No Urinary Frequency, No Hematuria, No Urinary Incontinence/retention, No Flank Pain Musculoskeletal: + joint pain, No Myalgias, + Joint Swelling Skin: No Skin Lesions, No rash Neuro: No Weakness, No Numbness, +chronic Paresthesias Yes all other systems are reviewed and are negative Neurologic: Denies Sensory deficit (Neuro) [facility] Past Medical History Attestation statement: The following information was validated with the patient. Medical History Daily consumption of alcohol Smoker Surgical History Hx of colonoscopy Social History Social History Alcohol intake: current Alcohol intake frequency: 3 or more drinks per day Alcohol type: beer Patient Tobacco Use Status: Current everyday Tobacco user Years Smoked: 50 Substance Use Type: Marijuana Substance Use Frequency: Occasionally Last Used Substance: Days (ago) Any prior treatment program specific to substance use: No Advance Directives: No Advance Directives Information Provided: No Physical Exam ED Vital Signs: Vital Signs - 24 hr 04/22/22 07:21 04/22/22 07:32 04/22/22 11:27 Temperature 98.0 F 98.2 F 98.2 F Pulse Rate 77 74 66 Respiratory Rate 17 20 18 Blood Pressure 130/82 127/82 138/76 Pulse Oximetry 98 99 100 Oxygen Delivery Method Room Air Room Air Room Air BMI result Body Mass Index 23.1 Const General: cooperative, healthy appearing and no acute distress Orientation/consciousness: patient oriented x3 Limitations: no limitations HENNC Head: Yes normal to inspection and Yes atraumatic Ears: hearing grossly normal bilaterally General nose exam: Normal external nose present Face and sinus: Yes normal facial exam Eyes General: appearance normal, both eyes and all related structures EOM: EOMs intact bilaterally Neck Neck: Yes normal visual inspection and Yes no meningeal signs Resp Effort & Inspection: normal respiratory effort and no respiratory distress Cardio Rate: regular rate Heart sounds: S1 normal heart sound present and S2 normal heart sound present Peripheral pulses: dorsalis pedis present GI Inspection: Yes normal to inspection Skin Rashes: no rashes Wounds: no wounds Neuro General: patient oriented x3, tone normal and no meningeal signs Motor exam (neuro): 5/5 motor strength present throughout Sensory Exam: No Sensory deficit (Neuro) Extrem Other: Left foot/ankle with noted swelling, and erythema to lateral aspects of foot with warmth to palpation. Slightly tender to palpation. Neurovascularly intact, sensation intact throughout. ROM intact slightly limited from swelling. No pain with passive ROM. No streaking/lymphangitis and no edema/calf tenderness or tib-fib tenderness Course Course Course Narrative: -916--mild leukocytosis of 12.0. ESR elevated to 20. CRP 10.3. Labs otherwise unremarkable > case is discussed with Dr. Lunsford who also evaluated patient, will perform joint aspiration to rule out septic joint in the emergency department -consent signed and in chart -synovial fluid with 17,000 wbc's and 87% neutrophils > this is not consistent with septic joint, however will consult orthopedic -spoke with orthopedic MARYANA Hernandez who reports unlikely septic arthritis. > Will initiate Keflex/doxycycline and have patient follow-up with orthopedics Procedures Joint Aspiration/Injection Joint Asp./Inject. 1: Side of body: left Joint Aspirated: ankle Ultrasound Guidance: No Skin Prep: Povidone-Iodine1% Local Anesthetic: lidocaine 1% Amount of anesthesia used (mL): 5 Needle Size Used: 22G Fluid Obtained: bloody Total fluid obtained (mL): 2 Patient Tolerated Procedure: well Complications: none Additional Comments: Performed by Dr. Lunsford Medical Decision Making [facility] Narrative Medical decision making narrative: 66-year-old male with no significant past medical history presenting to ED for left foot/ankle re-evaluation. On exam vital signs stable, afebrile, NAD, physical exam as above. Concern for cellulitis vs gout. Low suspicion for fracture with negative x-rays 2 days ago. Unlikely septic joint/arthritis. Plan: Repeat labs Medical Records Medical records reviewed: Yes I reviewed the patient's medical records. Lab Data Lab results reviewed: Yes I reviewed the patient's lab results. Result diagrams: 04/22/22 08:25 04/22/22 08:25 Labs: Lab Results 04/22/22 04/22/22 04/22/22 Range/Units 08:25 08:25 08:25 WBC 12.0 H (4.8-10.8) X10*3/uL RBC 4.25 L (4.60-5.80) X10*6/uL Hgb 13.7 L (14.0-18.0) g/dl Hct 40.2 L (42.0-52.0) % MCV 94.6 (80.0-98.0) fL MCH 32.2 (27.0-33.0) pg MCHC 34.1 (31.0-36.0) g/dl RDW 13.2 (11.0-16.0) % Plt Count 179 (160-400) X10*3/uL MPV 11.4 (9.4-12.4) fL Immature Gran % (Auto) 0.3 (0.0-0.4) % Neut % (Auto) 75.5 H (45-73) % Lymph % (Auto) 16.7 L (20-40) % [place] % (Auto) 6.6 (2-11) % Eos % (Auto) 0.6 (0-4) % Baso % (Auto) 0.3 (0-2) % Lymph # (Auto) 2.0 (1.2-4.9) X10*3/uL [place] # (Auto) 0.8 (0.1-1.2) X10*3/uL Eos # (Auto) 0.1 (0.0-0.4) X10*3/uL Baso # (Auto) 0.0 (0.0-0.2) X10*3/uL Abs Immat Gran (auto) 0.04 H (0.00-0.03) X10*3/uL Absolute Neuts (auto) 9.0 H (2.0-8.3) x10*3/uL Absolute Nucleated RBC 0.000 (0.0-0.012) X10*3/uL Nucleated RBC % (auto) 0.0 (0.0-0.2) /100WBC ESR 20 H (0-15) MM/HR Sodium 141 (135-145) mmol/L Potassium 4.8 (3.3-5.1) mmol/L Chloride 107 (96-108) mmol/L Carbon Dioxide 25 (22-29) mmol/L Anion Gap 14 (12-20) BUN 9 (9-16) mg/dL Creatinine 0.77 (0.5-1.4) mg/dL Estim Creat Clear Calc 104.6 Estimated GFR > 60 Random Glucose 94 (60-115) mg/dL Calcium 9.0 (8.4-10.2) mg/dL C-Reactive Protein 10.36 H (< or = 0.50) mg/dL Synovial Source Synovial WBC X10*3/uL Synovial RBC X10*6/uL Synovial Neutrophils % Synovial Monocytes % 04/22/22 Range/Units 10:32 WBC (4.8-10.8) X10*3/uL RBC (4.60-5.80) X10*6/uL Hgb (14.0-18.0) g/dl Hct (42.0-52.0) % MCV (80.0-98.0) fL MCH (27.0-33.0) pg MCHC (31.0-36.0) g/dl RDW (11.0-16.0) % Plt Count (160-400) X10*3/uL MPV (9.4-12.4) fL Immature Gran % (Auto) (0.0-0.4) % Neut % (Auto) (45-73) % Lymph % (Auto) (20-40) % [place] % (Auto) (2-11) % Eos % (Auto) (0-4) % Baso % (Auto) (0-2) % Lymph # (Auto) (1.2-4.9) X10*3/uL [place] # (Auto) (0.1-1.2) X10*3/uL Eos # (Auto) (0.0-0.4) X10*3/uL Baso # (Auto) (0.0-0.2) X10*3/uL Abs Immat Gran (auto) (0.00-0.03) X10*3/uL Absolute Neuts (auto) (2.0-8.3) x10*3/uL Absolute Nucleated RBC (0.0-0.012) X10*3/uL Nucleated RBC % (auto) (0.0-0.2) /100WBC ESR (0-15) MM/HR Sodium (135-145) mmol/L Potassium (3.3-5.1) mmol/L Chloride (96-108) mmol/L Carbon Dioxide (22-29) mmol/L Anion Gap (12-20) BUN (9-16) mg/dL Creatinine (0.5-1.4) mg/dL Estim Creat Clear Calc Estimated GFR Random Glucose (60-115) mg/dL Calcium (8.4-10.2) mg/dL C-Reactive Protein (< or = 0.50) mg/dL Synovial Source L ankle Synovial WBC 17.852 X10*3/uL Synovial RBC 0.546 X10*6/uL Synovial Neutrophils 87 % Synovial Monocytes 13 % Discharge Plan Discharge Clinical Impression: Cellulitis Patient Disposition: Home, Self-Care Instructions: Cellulitis (ED) Additional Instructions: Your blood work showed was signs of inflammation, your ankle is infected. Doxycycline and Keflex are antibiotics please take as prescribed. Apply Pranay wrap for compression, elevate. Take Tylenol and Motrin as needed for pain. Continue taking previously prescribed prednisone. You need to follow-up with Orthopedics, call on Sunday to make an appointment. If symptoms persist or worsen, redness is spreading, becomes more swollen, you are unable to walk or move your ankle return to the ED immediately Prescriptions: New cephalexin 500 mg capsule 500 mg PO QID 7 Days Qty: 28 0RF doxycycline hyclate 100 mg tablet 100 mg PO BID 7 Days Qty: 14 0RF No Action sulfamethoxazole-trimethoprim [Bactrim DS] 800-160 mg tablet 1 tab PO BID 3 Days Qty: 6 0RF Rx Instructions: Take antibiotics day before, day of, and day after procedure multivitamin Tablet 1 tab PO DAILY ascorbic acid (vitamin C) [Vitamin C] 500 mg Tablet 500 mg PO DAILY cholecalciferol (vitamin D3) [Vitamin D3] 25 mcg (1,000 unit) Tablet 25 mcg PO DAILY ketorolac 10 mg tablet 10 mg PO Q6H PRN (Reason: pain) 5 Days Qty: 20 0RF Rx Instructions: Patient received Toradol in the emergency room. prednisone 20 mg tablet 40 mg PO DAILY 5 Days Qty: 10 0RF finasteride 5 mg tablet 5 mg PO DAILY 90 Days Qty: 90 1RF Referrals: Mary Teresa PA-C [Physician Compliance Monitor] - 2 days
[2022-04-22 08:30] LABS: MANUAL DIFF FLAG NO
[2022-04-22 08:34] LABS: Basophils Percent Auto 0.3 % (0-2); Eosinophils Absolute Auto 0.1 X10*3/uL (0.0-0.4); Eosinophils Percent Auto 0.6 % (0-4); Hematocrit 40.2 % (42.0-52.0); Hemoglobin 13.7 g/dl (14.0-18.0); Imm Gran Abs Auto 0.04 X10*3/uL (0.00-0.03); Imm Gran Pct Auto 0.3 % (0.0-0.4); Lymphocytes Percent Auto 16.7 % (20-40); Mean Corpuscular HGB Conc 34.1 g/dl (31.0-36.0); Mean Corpuscular Hemoglobin 32.2 pg (27.0-33.0); Mean Corpuscular Volume 94.6 fL (80.0-98.0); Mean Platelet Volume 11.4 fL (9.4-12.4); Monocytes Absolute Auto 0.8 X10*3/uL (0.1-1.2); Monocytes Percent Auto 6.6 % (2-11); Neutrophils Percent Auto 75.5 % (45-73); Platelet Count 179 X10*3/uL (160-400); Red Blood Count 4.25 X10*6/uL (4.60-5.80); Red Cell Distribution Width 13.2 % (11.0-16.0)
[2022-04-22 08:45] LABS: Anion Gap 14 (12-20); Blood Urea Nitrogen 9 mg/dL (9-16); C Reactive Protein 10.36 mg/dL (< or = 0.50); Carbon Dioxide 25 mmol/L (22-29); Chloride 107 mmol/L (96-108); Creatinine Clr Calc Pharmacy 104.6; Estimated Glomerular Filt Rate > 60; Glucose Random 94 mg/dL (60-115); Potassium 4.8 mmol/L (3.3-5.1); Sodium 141 mmol/L (135-145)
[2022-04-22 09:15] LABS: Erythrocyte Sedimentation Rate 20 MM/HR (0-15)
[2022-04-22 11:27] VITALS: BP 138/76; PULSE 66; RESP 18; TEMP 36.8; O2SAT 100
[2022-04-22 11:53] LABS: Monocytes Synovial Fluid 13 %; Neutrophils Synovial Fluid 87 %; RBC Synovial Fluid 0.546 X10*6/uL; WBC Synovial Fluid 17.852 X10*3/uL
[2022-04-22 11:54] LABS: BF Shift QC OK YES; MN% 18.3 %; Man Diluent Bkgrd OK YES; PMN% 81.7 %
[2022-04-24 13:11] LABS: Lyme Abs Screen <0.90 index
== END 2022-04-22 12:55 | disposition home or self-care (01) ==
PROVIDERS: Physician Assistant; Emergency Provider Emergency Medicine; PCP Family Medicine
DX: L03.116 Cellulitis of left lower limb (principal); M25.472 Effusion, left ankle
CPT/HCPCS: 20605; 36415; 80048; 85025; 85652; 86140; 86617; 86618; 87071; 87073; 87205; 89051; 89060; 99284; 99285

== ENCOUNTER → 2022-05-08 08:01 | Outpatient (BNVA) | payer MEDICARE, BC, SELFPAY | PROVIDERS: PCP Family Medicine; Visit Provider Physician Assistant | DX: L03.116 Cellulitis of left lower limb (principal) | CPT/HCPCS: 99202 ==

== ENCOUNTER → 2022-08-10 11:06 | Outpatient (BNVA) | payer MEDICARE, BC, SELFPAY | PROVIDERS: PCP Family Medicine; Visit Provider Urology | DX: R97.20 Elevated prostate specific antigen [PSA] (principal); N40.1 Benign prostatic hyperplasia with lower urinary tract symptoms; N13.8 Other obstructive and reflux uropathy | CPT/HCPCS: 51798; 99212 ==

== ENCOUNTER 2022-11-24 13:02 | Outpatient (REF) | payer MEDICARE, BC, SELFPAY ==
[2022-11-24 14:25] LABS: PSA,Total (Free>4and<10) 5.41 ng/mL (0.00-4.00)
[2022-11-27 11:04] LABS: Free Prostate Spec Ag 0.5 ng/mL; Percent Free Prostate Spec Ag 9 % (calc) (>25); Prostate Specific Ag Total 5.5 ng/mL (< OR = 4.0)
== END 2022-11-24 13:03 | disposition home or self-care (01) ==
LOC: HO.10HDL 13:02
PROVIDERS: Visit Provider Urology
DX: R97.20 Elevated prostate specific antigen [PSA] (principal); Z12.5 Encounter for screening for malignant neoplasm of prostate
CPT/HCPCS: 36415; 84153; 84154

== ENCOUNTER → 2022-12-05 09:09 | Outpatient (BNVA) | payer MEDICARE, BC, SELFPAY | PROVIDERS: PCP Family Medicine; Visit Provider Urology | DX: R97.20 Elevated prostate specific antigen [PSA] (principal) | CPT/HCPCS: Q3014 ==

== ENCOUNTER → 2023-01-30 11:34 | Outpatient (BNVA) | payer MEDICARE, BC, SELFPAY | PROVIDERS: PCP Family Medicine; Visit Provider Urology | DX: R97.20 Elevated prostate specific antigen [PSA] (principal) | CPT/HCPCS: Q3014 ==

== ENCOUNTER 2023-03-08 11:21 | Emergency (ER) | payer MEDICARE, BC, SELFPAY ==
--- NOTE | ~2023-03-08 | XR_ITS ---
EXAMINATION: XR KNEE, LEFT CLINICAL INFORMATION: Pain COMPARISON: None available. TECHNIQUE: 5 views of the left knee. FINDINGS: Positive for moderate to large joint effusion. Stable calcifications are noted. Possible capsular calcifications. There is no acute fracture or dislocation. XR/XR knee LT 4V IMPRESSION: No acute fracture or dislocation. There is a large joint effusion and soft tissue calcifications. If further evaluation is warranted recommend MR
[2023-03-08 11:23] VITALS: BP 99/70; PULSE 100; RESP 19; TEMP 36.6; O2SAT 99; BMI 21.2
--- NOTE | 2023-03-08 11:26 | ED_ITS ---
HPI - General Adult General Chief complaint: Extremity Injury, Lower <MARYANA Sykes - Last Filed: 03/08/23 11:27> Stated complaint: L knee swelling <MARYANA Sykes - Last Filed: 03/08/23 11:27> Time Seen by Provider: 03/08/23 11:33 <MARYANA Sykes - Last Filed: 03/08/23 11:27> Source: patient <MARYANA Horton - Last Filed: 03/08/23 16:27> Mode of arrival: ambulatory <MARYANA Horton Last Filed: 03/08/23 16:27> History of Present Illness HPI narrative: 67-year-old male with a past medical history of BPH, presenting to the ED complaining of atraumatic left knee pain and swelling x few days. Denies known injury/trauma or fall, numbness/tingling, fever/chills. Reports difficulty ambulating secondary to pain. Admits did recently go skiing, had some hip discomfort however denies injury knee. Denies known tick or insect bites however was doing yard work recently as well. <MARYANA Horton - Last Filed: 03/08/23 16:27> Onset (ago): day(s) <MARYANA Horton - Last Filed: 03/08/23 16:27> Related Data Home medications: Home Medications Medication Instructions Recorded Confirmed ascorbic acid (vitamin C) 500 mg 500 mg PO DAILY 11/15/20 11/15/20 tablet (Vitamin C) cholecalciferol (vitamin D3) 25 25 mcg PO DAILY 11/15/20 11/15/20 mcg (1,000 unit) tablet (Vitamin D3) multivitamin 1 tab PO DAILY 11/15/20 11/15/20 Previous Rx's Medication Instructions Recorded ketorolac 10 mg tablet 10 mg PO Q6H PRN pain 5 days #20 07/15/21 tabs sulfamethoxazole 800 1 tab PO BID 3 days #6 tabs 09/13/21 mg-trimethoprim 160 mg tablet (Bactrim DS) prednisone 20 mg tablet 40 mg PO DAILY 5 days #10 tabs 04/20/22 cephalexin 500 mg capsule 500 mg PO QID 7 days #28 caps 04/22/22 doxycycline hyclate 100 mg tablet 100 mg PO BID 7 days #14 tabs 04/22/22 finasteride 5 mg tablet 5 mg PO DAILY 90 days #90 tabs 11/14/22 <MARYANA Sykes Last Filed: 03/08/23 11:27> Allergies/adverse reactions: Allergies Allergy/AdvReac Type Severity Reaction Status Date / Time No Known Allergies Allergy Verified 03/08/23 11:23 <MARYANA Sykes - Last Filed: 03/08/23 11:27> Review of Systems Review of Systems: Constitutional: No Fever, No Chills ENT/Mouth: No Ear Pain, No Nasal Congestion, No sore throat, No Rhinorrhea, No Swallowing Difficulty Cardiovascular: No Chest Pain, No SOB Respiratory: No Cough, No Sputum, No Wheezing Gastrointestinal: No Nausea, No Vomiting, No Diarrhea, No Constipation, No Abdominal pain Genitourinary: No Dysuria, No Urinary Frequency, No Urgency, No Flank Pain Musculoskeletal: + joint pain, No Myalgias, + Joint Swelling Skin: No Skin Lesions, No rash Neuro: No Weakness, No Numbness, No Paresthesias <MARYANA Horton Last Filed: 03/08/23 16:27> Yes all other systems are reviewed and are negative <MARYANA Horton Last Filed: 03/08/23 16:27> Constitutional: Constitutional: Reports as per HPI <MARYANA Horton Last Filed: 03/08/23 16:27> [facility] Past Medical History Attestation statement: The following information was validated with the patient. 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, 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 <MARYANA Sykes - Last Filed: 03/08/23 11:27> Physical Exam ED Vital Signs: Vital Signs - 24 hr 03/08/23 11:23 Temperature 98 F Pulse Rate 100 Respiratory Rate 19 Blood Pressure 99/70 Pulse Oximetry 99 Oxygen Delivery Method Room Air BMI result Body Mass Index 21.2 <MARYANA Sykes - Last Filed: 03/08/23 11:27> Vital Signs - 24 hr 03/08/23 11:23 Temperature 98 F Pulse Rate 100 Respiratory Rate 19 Blood Pressure 99/70 Pulse Oximetry 99 Oxygen Delivery Method Room Air BMI result Body Mass Index 21.2 <MARYANA Horton - Last Filed: 03/08/23 16:27> Const General: cooperative, healthy appearing and no acute distress <MARYANA Horton - Last Filed: 03/08/23 16:27> Orientation/consciousness: patient oriented x3 <MARYANA Horton - Last Filed: 03/08/23 16:27> Limitations: no limitations <MARYANA Horton - Last Filed: 03/08/23 16:27> HENMT Head: Yes normal to inspection and Yes atraumatic <MARYANA Horton - Last Filed: 03/08/23 16:27> Ears: hearing grossly normal bilaterally <MARYANA Horton - Last Filed: 03/08/23 16:27> General nose exam: Normal external nose present <MARYANA Horton - Last Filed: 03/08/23 16:27> Face and sinus: Yes normal facial exam <MARYANA Horton Last Filed: 03/08/23 16:27> Eyes General: appearance normal, both eyes and all related structures <MARYANA Horton - Last Filed: 03/08/23 16:27> EOM: EOMs intact bilaterally <MARYANA Horton - Last Filed: 03/08/23 16:27> Neck Neck: Yes normal visual inspection and Yes no meningeal signs <MARYANA Horton - Last Filed: 03/08/23 16:27> Resp Effort & Inspection: normal respiratory effort and no respiratory distress <MARYANA Horton - Last Filed: 03/08/23 16:27> Cardio Rate: regular rate <MARYANA Horton - Last Filed: 03/08/23 16:27> Heart sounds: S1 normal heart sound present and S2 normal heart sound present <MARYANA Horton - Last Filed: 03/08/23 16:27> Peripheral pulses: Peripheral pulses 2+ throughout <MARYANA Horton - Last Filed: 03/08/23 16:27> Skin Rashes: no rashes <MARYANA Horton - Last Filed: 03/08/23 16:27> Wounds: no wounds <MARYANA Horton - Last Filed: 03/08/23 16:27> Neuro General: patient oriented x3, tone normal and no meningeal signs <MARYANA Horton - Last Filed: 03/08/23 16:27> Gait exam (Neuro): Normal gait present <MARYANA Horton - Last Filed: 03/08/23 16:27> Extrem Other: Left knee with large effusion. Diffusely tender to palpation. Decreased flexion secondary to pain. No erythema/warmth. Neurovascularly intact distally <MARYANA Horton - Last Filed: 03/08/23 16:27> Course Course Course Narrative: This is an RME: Additional HPI, ROS, PE not included below will be deferred to primary provider. 67-year-old male presents with atraumatic left kn ee pain and swelling, started suddenly a few days ago worsening. Reports pain with ambulation and pain with range of motion Physical exam moderate to large sized effusion to left knee with some overlying warmth and erythema. Plan imaging basic labs. <MARYANA Sykes - Last Filed: 03/08/23 11:27> This is an RME: Additional HPI, ROS, PE not included below will be deferred to primary provider. 67-year-old male presents with atraumatic left knee pain and swelling, started suddenly a few days ago worsening. Reports pain with ambulation and pain with range of motion Physical exam moderate to large sized effusion to left knee with some overlying warmth and erythema. Plan imaging basic labs. -WBC count 11.2. Elevated ESR and CRP -1615--synovial fluid showing 60.9 wbc's and 89% neutrophils, also 3+ CPPD crystals > will consult Orthopedics. Low suspicion for septic joint > Orthopedics, Dr. Kuhn in agreement of low suspicion for septic joint, likely all related to pseudogout. Results discussed with patient including worrisome signs and symptoms and strict return precautions, and when to return to the emergency department. They verbalized understanding and feel safe for discharge at this time. <MARYANA Horton - Last Filed: 03/08/23 16:27> Medications Administered Discontinued Medications Generic Name Dose Route Start Last Admin Trade Name Freq PRN Reason Stop Dose Admin Lidocaine HCl 5 ml 03/08/23 11:42 03/08/23 12:19 Lidocaine Hcl 1 % Mpf 5 Ml Vial INFILTRATI 03/08/23 11:43 5 ml ONCE ONE Administration <MARYANA Sykes - Last Filed: 03/08/23 11:27> Medications Administered Discontinued Medications Generic Name Dose Route Start Last Admin Trade Name Freq PRN Reason Stop Dose Admin Lidocaine HCl 5 ml 03/08/23 11:42 03/08/23 12:19 Lidocaine Hcl 1 % Mpf 5 Ml Vial INFILTRATI 03/08/23 11:43 5 ml ONCE ONE Administration <MRAYANA Horton - Last Filed: 03/08/23 16:27> Procedures Joint Aspiration/Injection Joint Asp./Inject. 1: Side of body: left <MARYANA Horton Last Filed: 03/08/23 16:27> Joint Aspirated: knee <MARYANA Horton Last Filed: 03/08/23 16:27> Skin Prep: sterile prep and drape <MARYANA Horton Last Filed: 03/08/23 16:27> Local Anesthetic: lidocaine 1% <MARYANA Horton Last Filed: 03/08/23 16:27> Amount of anesthesia used (mL): 3 <MARYANA Horton Last Filed: 03/08/23 16:27> Needle Size Used: 18G <MARYANA Horton Last Filed: 03/08/23 16:27> Fluid Obtained: clear <MARYANA Horton - Last Filed: 03/08/23 16:27> Total fluid obtained (mL): 130 <MARYANA Horton Last Filed: 03/08/23 16:27> Patient Tolerated Procedure: well <MARYANA Horton Last Filed: 03/08/23 16:27> Complications: none <MARYANA Horton - Last Filed: 03/08/23 16:27> Medical Decision Making Medical Decision Making MDM Narrative: 67-year-old male with a past medical history of BPH, presenting to the ED complaining of atraumatic left knee pain and swelling x few days. On exam vital signs stable, NAD, nontoxic appearing, physical exam as above. Large left knee effusion noted without overlying erythema or warmth. Concern for meniscal/tendon or ligamental injury vs ?Gout. Rule out fracture. ?Lyme. No evidence of cellulitis. Low suspicion for septic joint/arthritis Plan: X-ray, labs, joint aspiration Please refer to course for remaining clinical decision making, interpretation of labs/imaging results, and discussions with consultants and/or family members. <MARYANA Horton Last Filed: 03/08/23 16:27> Differential Diagnosis Differential Diagnoses: The differential diagnosis associated with the presentation includes <MARYANA Horton Last Filed: 03/08/23 16:27> As above <MARYANA Horton Last Filed: 03/08/23 16:27> Admission/Observation Consideration of admission/observation: Escalation of care including admission/observation considered <MARYANA Horton Last Filed: 03/08/23 16:27> Consult Healthcare Provider Management of the patient was discussed with: Food Technologist <MARYANA Horton Last Filed: 03/08/23 16:27> Lab Data [facility] Lab Attestation statement: I reviewed the patient's lab results. <MARYANA Horton Last Filed: 03/08/23 16:27> Result Diagrams: 03/08/23 11:49 03/08/23 11:49 <MARYANA Sykes Last Filed: 04/27/23 11:27> Labs: Lab Results 03/08/23 03/08/23 03/08/23 Range/Units 11:49 11:49 11:49 WBC 11.2 H (4.8-10.8) X10*3/uL RBC 4.77 (4.60-5.80) X10*6/uL Hgb 14.8 (14.0-18.0) g/dl Hct 44.1 (42.0-52.0) % MCV 92.5 (80.0-98.0) fL MCH 31.0 (27.0-33.0) pg MCHC 33.6 (31.0-36.0) g/dl RDW 14.2 (11.0-16.0) % Plt Count 198 (160-400) X10*3/uL MPV 11.7 (9.4-12.4) fL Immature Gran % (Auto) 0.4 (0.0-0.4) % Neut % (Auto) 82.9 H (45-73) % Lymph % (Auto) 10.0 L (20-40) % [place] % (Auto) 6.1 (2-11) % Eos % (Auto) 0.3 (0-4) % Baso % (Auto) 0.3 (0-2) % Lymph # (Auto) 1.1 L (1.2-4.9) X10*3/uL [place] # (Auto) 0.7 (0.1-1.2) X10*3/uL Eos # (Auto) 0.0 (0.0-0.4) X10*3/uL Baso # (Auto) 0.0 (0.0-0.2) X10*3/uL Abs Immat Gran (auto) 0.05 H (0.00-0.03) X10*3/uL Absolute Neuts (auto) 9.3 H (2.0-8.3) x10*3/uL Absolute Nucleated RBC 0.000 (0.0-0.012) X10*3/uL Nucleated RBC % (auto) 0.0 (0.0-0.2) /100WBC ESR 33 H (0-15) MM/HR Sodium 139 (135-145) mmol/L Potassium 4.2 (3.3-5.1) mmol/L Chloride 104 (96-108) mmol/L Carbon Dioxide 27 (22-29) mmol/L Anion Gap 12 (12-20) BUN 11 (9-16) mg/dL Creatinine 0.83 (0.5-1.4) mg/dL Estim Creat Clear Calc 92.9 Estimated GFR > 60 Random Glucose 109 (60-115) mg/dL Calcium 9.1 (8.4-10.2) mg/dL Total Bilirubin 1.3 H (0.0-1.0) mg/dL AST 11 (5-37) U/L ALT 10 (0-40) U/L Alkaline Phosphatase 86 (39-117) U/L C-Reactive Protein (< or = 0.50) mg/dL Total Protein 6.5 (6.5-8.0) g/dL Albumin 3.6 (3.5-5.0) g/dL Synovial Source Synovial WBC X10*3/uL Synovial RBC X10*6/uL Synovial Neutrophils % Synovial Lymphocytes % Synovial Monocytes % Synovial Glucose 03/08/23 03/08/23 03/08/23 Range/Units 11:49 14:17 14:17 WBC (4.8-10.8) X10*3/uL RBC (4.60-5.80) X10*6/uL Hgb (14.0-18.0) g/dl Hct (42.0-52.0) % MCV (80.0-98.0) fL MCH (27.0-33.0) pg MCHC (31.0-36.0) g/dl RDW (11.0-16.0) % Plt Count (160-400) X10*3/uL MPV (9.4-12.4) fL Immature Gran % (Auto) (0.0-0.4) % Neut % (Auto) (45-73) % Lymph % (Auto) (20-40) % [place] % (Auto) (2-11) % Eos % (Auto) (0-4) % Baso % (Auto) (0-2) % Lymph # (Auto) (1.2-4.9) X10*3/uL [place] # (Auto) (0.1-1.2) X10*3/uL Eos # (Auto) (0.0-0.4) X10*3/uL Baso # (Auto) (0.0-0.2) X10*3/uL Abs Immat Gran (auto) (0.00-0.03) X10*3/uL Absolute Neuts (auto) (2.0-8.3) x10*3/uL Absolute Nucleated RBC (0.0-0.012) X10*3/uL Nucleated RBC % (auto) (0.0-0.2) /100WBC ESR (0-15) MM/HR Sodium (135-145) mmol/L Potassium (3.3-5.1) mmol/L Chloride (96-108) mmol/L Carbon Dioxide (22-29) mmol/L Anion Gap (12-20) BUN (9-16) mg/dL Creatinine (0.5-1.4) mg/dL Estim Creat Clear Calc Estimated GFR Random Glucose (60-115) mg/dL Calcium (8.4-10.2) mg/dL Total Bilirubin (0.0-1.0) mg/dL AST (5-37) U/L ALT (0-40) U/L Alkaline Phosphatase (39-117) U/L C-Reactive Protein 21.74 H (< or = 0.50) mg/dL Total Protein (6.5-8.0) g/dL Albumin (3.5-5.0) g/dL Synovial Source knee Synovial WBC 60.960 X10*3/uL Synovial RBC 0.010 X10*6/uL Synovial Neutrophils 89 % Synovial Lymphocytes 6 % Synovial Monocytes 5 % Synovial Glucose Cancelled <MARYANA Sykes - Last Filed: 03/08/23 11:27> Lab Results 03/08/23 03/08/23 03/08/23 Range/Units 11:49 11:49 11:49 WBC 11.2 H (4.8-10.8) X10*3/uL RBC 4.77 (4.60-5.80) X10*6/uL Hgb 14.8 (14.0-18.0) g/dl Hct 44.1 (42.0-52.0) % MCV 92.5 (80.0-98.0) fL MCH 31.0 (27.0-33.0) pg MCHC 33.6 (31.0-36.0) g/dl RDW 14.2 (11.0-16.0) % Plt Count 198 (160-400) X10*3/uL MPV 11.7 (9.4-12.4) fL Immature Gran % (Auto) 0.4 (0.0-0.4) % Neut % (Auto) 82.9 H (45-73) % Lymph % (Auto) 10.0 L (20-40) % [place] % (Auto) 6.1 (2-11) % Eos % (Auto) 0.3 (0-4) % Baso % (Auto) 0.3 (0-2) % Lymph # (Auto) 1.1 L (1.2-4.9) X10*3/uL [place] # (Auto) 0.7 (0.1-1.2) X10*3/uL Eos # (Auto) 0.0 (0.0-0.4) X10*3/uL Baso # (Auto) 0.0 (0.0-0.2) X10*3/uL Abs Immat Gran (auto) 0.05 H (0.00-0.03) X10*3/uL Absolute Neuts (auto) 9.3 H (2.0-8.3) x10*3/uL Absolute Nucleated RBC 0.000 (0.0-0.012) X10*3/uL Nucleated RBC % (auto) 0.0 (0.0-0.2) /100WBC ESR 33 H (0-15) MM/HR Sodium 139 (135-145) mmol/L Potassium 4.2 (3.3-5.1) mmol/L Chloride 104 (96-108) mmol/L Carbon Dioxide 27 (22-29) mmol/L Anion Gap 12 (12-20) BUN 11 (9-16) mg/dL Creatinine 0.83 (0.5-1.4) mg/dL Estim Creat Clear Calc 92.9 Estimated GFR > 60 Random Glucose 109 (60-115) mg/dL Calcium 9.1 (8.4-10.2) mg/dL Total Bilirubin 1.3 H (0.0-1.0) mg/dL AST 11 (5-37) U/L ALT 10 (0-40) U/L Alkaline Phosphatase 86 (39-117) U/L C-Reactive Protein (< or = 0.50) mg/dL Total Protein 6.5 (6.5-8.0) g/dL Albumin 3.6 (3.5-5.0) g/dL Synovial Source Synovial WBC X10*3/uL Synovial RBC X10*6/uL Synovial Neutrophils % Synovial Lymphocytes % Synovial Monocytes % Synovial Glucose 03/08/23 03/08/23 03/08/23 Range/Units 11:49 14:17 14:17 WBC (4.8-10.8) X10*3/uL RBC (4.60-5.80) X10*6/uL Hgb (14.0-18.0) g/dl Hct (42.0-52.0) % MCV (80.0-98.0) fL MCH (27.0-33.0) pg MCHC (31.0-36.0) g/dl RDW (11.0-16.0) % Plt Count (160-400) X10*3/uL MPV (9.4-12.4) fL Immature Gran % (Auto) (0.0-0.4) % Neut % (Auto) (45-73) % Lymph % (Auto) (20-40) % [place] % (Auto) (2-11) % Eos % (Auto) (0-4) % Baso % (Auto) (0-2) % Lymph # (Auto) (1.2-4.9) X10*3/uL [place] # (Auto) (0.1-1.2) X10*3/uL Eos # (Auto) (0.0-0.4) X10*3/uL Baso # (Auto) (0.0-0.2) X10*3/uL Abs Immat Gran (auto) (0.00-0.03) X10*3/uL Absolute Neuts (auto) (2.0-8.3) x10*3/uL Absolute Nucleated RBC (0.0-0.012) X10*3/uL Nucleated RBC % (auto) (0.0-0.2) /100WBC ESR (0-15) MM/HR Sodium (135-145) mmol/L Potassium (3.3-5.1) mmol/L Chloride (96-108) mmol/L Carbon Dioxide (22-29) mmol/L Anion Gap (12-20) BUN (9-16) mg/dL Creatinine (0.5-1.4) mg/dL Estim Creat Clear Calc Estimated GFR Random Glucose (60-115) mg/dL Calcium (8.4-10.2) mg/dL Total Bilirubin (0.0-1.0) mg/dL AST (5-37) U/L ALT (0-40) U/L Alkaline Phosphatase (39-117) U/L C-Reactive Protein 21.74 H (< or = 0.50) mg/dL Total Protein (6.5-8.0) g/dL Albumin (3.5-5.0) g/dL Synovial Source knee Synovial WBC 60.960 X10*3/uL Synovial RBC 0.010 X10*6/uL Synovial Neutrophils 89 % Synovial Lymphocytes 6 % Synovial Monocytes 5 % Synovial Glucose Cancelled <MARYANA Horton - Last Filed: 03/08/23 16:27> Radiology Impression Discussion of test interpretation with radiology: I have reviewed the radiologist's reading. <MARYANA Horton - Last Filed: 03/08/23 16:27> External Record Review External record reviewed: Inpatient record, Office record, Outpatient record, Prior outpatient labs, Prior outpatient radiology, Primary care record and Outside ED record <MARYANA Horton Last Filed: 03/08/23 16:27> Prescription Management I considered prescription management with: Pain Medication <MARYANA Horton Last Filed: 03/08/23 16:27> Discharge Plan Discharge Clinical Impression: Pseudogout, Effusion of knee <MARYANA Sykes Last Filed: 03/08/23 11:27> Patient Disposition: Home, Self-Care <MARYANA Sykes Last Filed: 03/08/23 11:27> Instructions: Pseudogout (ED), Joint Aspiration (DC) <MARYANA Sykes Last Filed: 03/08/23 11:27> Additional Instructions: Your x-ray showed a large knee effusion. Your blood work showed an elevation in your inflammatory markers The fluid from your joint has crystals in it is suggestive of pseudogout/calcium deposits NSAIDs, like naproxen or mainstay of treatment, take daily as prescribed. Please of was follow-up with Orthopedics Keep Pranay wrap on for compression, your effusion can recollect Ice and elevate Additionally you can take Tylenol If area begins to look infected is red, warm, you are unable to ambulate return to the <MARYANA Sykes - Last Filed: 03/08/23 11:27> Prescriptions: No Action sulfamethoxazole-trimethoprim [Bactrim DS] 800-160 mg tablet 1 tab PO BID 3 Days Qty: 6 0RF Rx Instructions: Take antibiotics day before, day of, and day after procedure finasteride 5 mg tablet 5 mg PO DAILY 90 Days Qty: 90 1RF multivitamin Tablet 1 tab PO DAILY ascorbic acid (vitamin C) [Vitamin C] 500 mg Tablet 500 mg PO DAILY cholecalciferol (vitamin D3) [Vitamin D3] 25 mcg (1,000 unit) Tablet 25 mcg PO DAILY ketorolac 10 mg tablet 10 mg PO Q6H PRN (Reason: pain) 5 Days Qty: 20 0RF Rx Instructions: Patient received Toradol in the emergency room. prednisone 20 mg tablet 40 mg PO DAILY 5 Days Qty: 10 0RF cephalexin 500 mg capsule 500 mg PO QID 7 Days Qty: 28 0RF doxycycline hyclate 100 mg tablet 100 mg PO BID 7 Days Qty: 14 0RF <MARYANA Sykes - Last Filed: 03/08/23 11:27> Referrals: [facility] [place]Provider Group] - 1 week Alisha Maldonado MD [Primary Care Provider] - <MARYANA Sykes - Last Filed: 03/08/23 11:27>
[2023-03-08 11:58] LABS: MANUAL DIFF FLAG NO
[2023-03-08 12:09] LABS: Basophils Percent Auto 0.3 % (0-2); Eosinophils Percent Auto 0.3 % (0-4); Hematocrit 44.1 % (42.0-52.0); Hemoglobin 14.8 g/dl (14.0-18.0); Imm Gran Abs Auto 0.05 X10*3/uL (0.00-0.03); Imm Gran Pct Auto 0.4 % (0.0-0.4); Lymphocytes Absolute Auto 1.1 X10*3/uL (1.2-4.9); Mean Corpuscular HGB Conc 33.6 g/dl (31.0-36.0); Mean Corpuscular Volume 92.5 fL (80.0-98.0); Mean Platelet Volume 11.7 fL (9.4-12.4); Monocytes Absolute Auto 0.7 X10*3/uL (0.1-1.2); Monocytes Percent Auto 6.1 % (2-11); Neutrophils Absolute Auto 9.3 x10*3/uL (2.0-8.3); Neutrophils Percent Auto 82.9 % (45-73); Platelet Count 198 X10*3/uL (160-400); Red Blood Count 4.77 X10*6/uL (4.60-5.80); Red Cell Distribution Width 14.2 % (11.0-16.0); White Blood Count 11.2 X10*3/uL (4.8-10.8)
[2023-03-08 12:17] LABS: C Reactive Protein 21.74 mg/dL (< or = 0.50)
[2023-03-08] MEDS: Lidocaine HCl 1 % MPF 5 ML VIAL INFILTRATI (12:19)
[2023-03-08 12:25] LABS: Alanine Aminotransferase 10 U/L (0-40); Albumin Level 3.6 g/dL (3.5-5.0); Alkaline Phosphatase 86 U/L (39-117); Aspartate Amino Transferase 11 U/L (5-37); Bilirubin Total 1.3 mg/dL (0.0-1.0); Blood Urea Nitrogen 11 mg/dL (9-16); Calcium 9.1 mg/dL (8.4-10.2); Carbon Dioxide 27 mmol/L (22-29); Chloride 104 mmol/L (96-108); Creatinine Clr Calc Pharmacy 92.9; Estimated Glomerular Filt Rate > 60; Glucose Random 109 mg/dL (60-115); Potassium 4.2 mmol/L (3.3-5.1); Sodium 139 mmol/L (135-145); Total Protein 6.5 g/dL (6.5-8.0)
[2023-03-08 12:27] LABS: Anion Gap 12 (12-20)
[2023-03-08 12:48] LABS: Erythrocyte Sedimentation Rate 33 MM/HR (0-15)
[2023-03-08 14:21] LABS: Source Synovial Fluid knee
[2023-03-08 14:46] LABS: MN% 8.1 %; PMN% 91.9 %
[2023-03-08 15:59] LABS: BF Shift QC OK YES; Lymphocytes Synovial Fluid 6 %; Man Diluent Bkgrd OK YES; Monocytes Synovial Fluid 5 %; Neutrophils Synovial Fluid 89 %
[2023-03-08 17:18] LABS: Glucose Synovial Fluid 34 MG/DL
[2023-03-09 22:09] LABS: Lyme Abs Screen <0.90 index
== END 2023-03-08 16:53 | disposition home or self-care (01) ==
PROVIDERS: Physician Assistant; Emergency Provider Emergency Medicine; PCP Family Medicine
DX: M25.462 Effusion, left knee (principal); M11.262 Other chondrocalcinosis, left knee; M25.562 Pain in left knee; F17.210 Nicotine dependence, cigarettes, uncomplicated; F12.90 Cannabis use, unspecified, uncomplicated
CPT/HCPCS: 36415; 73564; 80053; 82945; 84157; 85025; 85652; 86140; 86617; 86618; 87070; 87073; 87205; 87476; 89051; 89060; 99282; 99285

== ENCOUNTER → 2023-04-20 08:30 | Outpatient (BNVA) | payer MEDICARE, BC, SELFPAY | PROVIDERS: PCP Family Medicine; Visit Provider Physician Assistant | DX: M11.262 Other chondrocalcinosis, left knee (principal) | CPT/HCPCS: 99212 ==

== ENCOUNTER 2023-05-31 09:06 | Outpatient (AMB) | payer MEDICARE, BC, SELFPAY ==
--- NOTE | 2023-05-31 09:47 | MHC.OFFVIS ---
Intake Intake Visit Reasons: H&P (fusion bx consult) Allergies No Known Allergies Allergy (Verified 04/20/23 08:44) Medication List - Last Reconciled 05/31/23 by Peter Valencia MD ascorbic acid (vitamin C) (Vitamin C) 500 mg PO DAILY cephalexin 500 mg PO QID 7 days cholecalciferol (vitamin D3) (Vitamin D3) 25 mcg PO DAILY doxycycline hyclate 100 mg PO BID 7 days finasteride 5 mg PO DAILY 90 days ketorolac 10 mg PO Q6H PRN 5 days multivitamin 1 tab PO DAILY naproxen 500 mg PO BID PRN 10 days prednisone 40 mg (2 x 20 mg) PO DAILY 5 days sulfamethoxazole-trimethoprim 800-160 mg (Bactrim DS) 1 tab PO BID 3 days HPI HPI Comments History of Present Illness Details Raul is a pleasant male. He is a patient of Dr. Diaz. He is seen for the following urologic conditions - elevated PSA - lower urinary tract symptoms Telemedicine Evaluation 15 min Consultation [employer] Shruthi Video attempted Planned fusion biopsy - discussed process MRI finding - 10 mm left posterior lateral apical lesion Continue finasteride Elevated PSA remains on finasteride He presents for - further evaluation of elevated PSA Current management is finasteride Laboratory investigations include - a total PSA evaluation - 10/01 6.65 - November 2020 7.6, 01/02 6.5, 05/02 6.1, 09/01 4.9 9%, 04/02 5.9, 12/04 5.5 9% Imaging investigations - 08/03 MRI 50 g prostate, 1 cm potential lesion left posterior lateral apex Individualized Prostate Cancer Risk Calculator - 5-10% high risk A TRUS biopsy - 10/02 NAD 12 core, 45gm Symptoms include - feeling of weak stream, intermittency. 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 These include but are not limited to infection, bleeding, damage to local organs and tissues, need for further interventions. Anesthetic risks regarding cardiac arrhythmia, blood clots, and potential mortality were discussed. The patient understands the typical recovery time and the outpatient nature of the procedure. After consideration of these risks the patient gives full informed consent and they wish to move ahead with the procedure. Ultrasound MRI fusion biopsy Orders: Orders PSA,Total (Free>4and<10) 6 Months R97.20 - Elevated prostate specific antigen [PSA] Patient Instructions: Imaging studies, laboratory and physical exam results were discussed and reviewed in detail. No major barriers to patient understanding were identified. An opportunity to ask questions regarding the treatment plan was provided. All questions were answered. The patient expressed understanding and agreement with the above treatment plan. The patient is aware they should contact our office by phone for worsening of their current condition or the appearance of new urologic symptoms. Compliance is encouraged with any medications and followup testing that is ordered. It is a privilege to participate in the urologic care of your patient. If you have any questions or concerns regarding treatment for the above conditions, or other urologic issues, please do not hesitate to contact me. The office telephone contact is [phone]. This note is constructed using voice recognition software. While every effort has been made to ensure accuracy mandate retail service merchandiser errors may have been included. Yours sincerely, Dr Peter Valencia MD, [facility] - Urology Providers of Expert, Compassionate Care for the Genitourinary System Telehealth Telehealth Location of provider rendering services: practice address Location of patient: address on file Patient Identification confirmed using: Name, : Yes Telehealth method: video Patient verbally consented to treatment: Yes Patient verbally consented to billing insurance company: Yes Patient informed of any privacy concerns related to visit: Yes Coding Level of Care Code Tele Est Pt Level 3 (59500) Diagnoses Elevated PSA R97.20
== END 2023-05-31 10:13 | disposition home or self-care (01) ==
LOC: HO.HUSH 09:06
PROVIDERS: PCP Family Medicine; Visit Provider Urology
DX: R97.20 Elevated prostate specific antigen [PSA] (principal)
CPT/HCPCS: 99213

== ENCOUNTER → 2023-05-31 09:06 | Outpatient (BNVA) | payer MEDICARE, BC, SELFPAY | PROVIDERS: PCP Family Medicine; Visit Provider Urology | DX: R97.20 Elevated prostate specific antigen [PSA] (principal) | CPT/HCPCS: Q3014 ==

== ENCOUNTER 2023-07-02 09:47 | Day surgery (SDC) | payer MEDICARE, BC, SELFPAY ==
[2023-06-28 10:14] VITALS: BMI 21.5
[2023-07-02] VITALS (7 sets, daily range): BP systolic 102–138; BP diastolic 71–81; PULSE 70–84; RESP 12–18; TEMP 36.3–36.6; O2SAT 95–98
--- NOTE | 2023-07-02 10:06 | P.CONAN_ITS ---
HPI - Anesthesia Eval Consult details Narrative: for prostate bx PMFSH Active Problems Active Problems: All Active Problems (Updated 04/20/23 @ 09:01 by Madeline Curry) Chondrocalcinosis of left knee (Acute) Weakness of left foot (Acute) Numbness in feet (Acute) Pseudogout of left knee (Acute) Elevated PSA (Acute) BPH w urinary obs/LUTS (Acute) Cellulitis of left ankle (Acute) Past Medical History Medical History Daily consumption of alcohol Smoker Family History Family history of problems with anesthesia: No Surgical History Surgical History Hx of colonoscopy History of Problems with Anesthesia: No Social History Social History Alcohol intake: current Alcohol intake frequency: 3 or more drinks per day Alcohol type: beer Patient Tobacco Use Status: Current everyday Tobacco user Years Smoked: 50 Substance Use Type: Marijuana Advance Directives: No Advance Directives Information Provided: Yes Current occupational status: employed 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, 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, 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 Allergies Allergy/AdvReac Type Severity Reaction Status Date / Time No Known Allergies Allergy Verified 04/20/23 08:44 Home Medications Medication Instructions Recorded Confirmed Last Taken Type ascorbic acid (vitamin C) 500 mg 500 mg PO DAILY 11/15/20 05/31/23 Unknown History tablet (Vitamin C) cholecalciferol (vitamin D3) 25 25 mcg PO DAILY 11/15/20 05/31/23 Unknown History mcg (1,000 unit) tablet (Vitamin D3) multivitamin 1 tab PO DAILY 11/15/20 05/31/23 Unknown History Exam Exam Date and Time: July 02, 2023 1006 Height,Weight and Vital Signs: Height 6 ft 2.5 in Weight 77.111 kg Airway Mallampati Class: I TM Dist: >3cm Neck ROM: Full Heart: ok Lungs: ok Assessment and Plan Assessment Anesthesia Assessment: Anesthesia Plan Discussed and Chart Reviewed Final Anesthetic Review Family History of Problems with Anesthesia: No History of Problems with Anesthesia: No NPO: Yes ASA Class: III Final Preanesthetic Review: No Changes in Pt Med Stat, Meds/Allgs Chart Reviewed, Consent Obtained/Reviewed and Anes Risks/Benef Reviewed Patient Risk: Intermediate Procedure Risk: Low Anesthetic Plan Anesthetic Plan: GA and Agree w/ Assess. and Plan Disposition: Standard PACU
[2023-07-02] MEDS: Lactated Ringers 1,000 ML 50 ML IVCONT (10:12)
--- NOTE | 2023-07-02 10:13 | MHC.SHP ---
Pre-Procedural Eval Section A Date of Service: 07/02/23 The patient is an INPATIENT: No Changes since office visit: No Cold of Flu in the past 2 weeks, No New Medical Problems, No Changes in Medication and No Patient answered all questions The History & Physical has been completed within 30 days and I have reviewed it.: No Section B Chief Complaint: Elevated prostate specific antigen [PSA] Details of Present Illness: elevated PSA prior negative biopsy Relevant Social History: None Present Medications: see Short Stay Collaborative assessment Medical History: No relevant PMH History of Previous Operations: No relevant previous surgery Allergies: Allergies Allergy/AdvReac Type Severity Reaction Status Date / Time No Known Allergies Allergy Verified 04/20/23 08:44 Review of Systems Sugical H&P ROS: Negative: Constitution, Cardiovascular, Respiratory, Neurological, Psychiatric, Hem-Onc, Allergic/Immunologic, Gastrointestinal, Genitourinary, Musculoskeletal, Integumentary, Endocrine and Eyes/Ears/Nose/Throat Exam Surgical H&P Exam: Normal: HEENT, Normal: Heart, Normal: Lungs, Normal: Extremities, Normal: Abdomen, Normal: Skin and Normal: Neurological Plan Diagnosis/Plan: Unchanged (prostate biopsy) I have reviewed the history and physical and performed a pertinent physical examination on my patient. No changes have occurred unless specified. Time Spent With Patient Time: Total time managing care of this patient today ____ minutes.
--- NOTE | 2023-07-02 10:53 | W.PM.OPN ---
Operative Note Operative Note Date of Service: 07/02/23 Narrative: Preoperative diagnosis: Elevated PSA Postoperative diagnosis: Elevated PSA Procedure: 1. transrectal ultrasound measurement of prostate 2. transrectal ultrasound-guided pudendal nerve block 3. MRI-US fusion image registration performed 3. transperineal ultrasound-guided prostate biopsy 18 core including targets Surgeon: Dr. Peter Valencia Anesthetic: Sedation plus local Indications for procedure: Elevated PSA - prior negative biopsy Procedure: After informed consent was verified, the patient was brought into the procedure area. Patient identity confirmed. Perioperative antibiotics confirmed. Safety pause time out performed. Anesthesia performed per protocol Ultrasound probe was placed per rectum Focalis software and hardware platform used An ultrasound-guided pudendal nerve block was performed using 10 cc of 1% lidocaine. 8 cc was placed at the base and 2 cc of the apex. Perineal injection of local. Ultrasound placement was made with grid calibration for height and prostate diameter in both the transverse and longitudinal planes. Once grid calibration was confirmed ultrasound acquisition was performed in the transverse fashion. Three dimensional ultrasound model was created. The planned needle targeting based on prior acquisition of MRI imaging was overlaid on the ultrasound images and targets confirmed through ultrasound review. Based on pre -planning evaluation 18 targets had been identified. These included multi target PiRADs identified lesion/s. He tolerated the procedure well. Was transferred to stable condition in the PACU. Printed instructions regarding antibiotic use and common side effects such as low-grade temperature, potential infection and bleeding were given Pathology: 18 core prostate biopsy CPT 81886 Modifier 22 for complexity of planning and procedure execution
== END 2023-07-02 11:51 | disposition home or self-care (01) ==
PROVIDERS: PCP Family Medicine; Visit Provider Urology
PROC: (CPT 55700; principal; 2023-07-02 09:50)
DX: R97.20 Elevated prostate specific antigen [PSA] (principal); F10.90 Alcohol use, unspecified, uncomplicated; Z79.899 Other long term (current) drug therapy; F17.290 Nicotine dependence, other tobacco product, uncomplicated; F12.90 Cannabis use, unspecified, uncomplicated
CPT/HCPCS: 55700; 88305; J1956; J3010

== ENCOUNTER → 2023-07-02 09:47 | Outpatient (BNV) | payer MEDICARE, BC, SELFPAY | PROVIDERS: PCP Family Medicine; Visit Provider Urology | DX: R97.20 Elevated prostate specific antigen [PSA] (principal) | CPT/HCPCS: 55700; 76942 ==

== ENCOUNTER → 2023-07-17 11:52 | Outpatient (BNVA) | payer MEDICARE, BC, SELFPAY | PROVIDERS: PCP Family Medicine; Visit Provider Urology ==

== ENCOUNTER 2023-08-03 12:24 | Outpatient (AMB) | payer MEDICARE, BC, SELFPAY ==
--- NOTE | 2023-08-03 12:28 | A.OFFVIS_ITS ---
Intake Intake Visit Reasons: Bx results Intake Note: Patient presents today for a follow-up on Bx results: Meds- Finasteride Allergies to Antibiotic- No Known Allergies Blood Thinner- None Baseball Winder Required: No Accompanied by: Self / Same As Patient Allergies No Known Allergies Allergy (Verified 08/03/23 12:29) Medication List - Last Reconciled 08/03/23 by Peter Valencia MD ascorbic acid (vitamin C) (Vitamin C) 500 mg PO DAILY cholecalciferol (vitamin D3) (Vitamin D3) 25 mcg PO DAILY finasteride 5 mg PO DAILY 90 days multivitamin 1 tab PO DAILY HPI HPI Comments History of Present Illness Details Raul is a pleasant male. He is a patient of Dr. Diaz. He is seen for the following urologic conditions - elevated PSA - lower urinary tract symptoms Telemedicine Evaluation 15 min Consultation mPATH Shruthi Video attempted Biopsy performed No evidence of prostate cancer Six month follow-up MRI finding - 10 mm left posterior lateral apical lesion Continue finasteride Elevated PSA remains on finasteride He presents for - further evaluation of elevated PSA Current management is finasteride Laboratory investigations include - a total PSA evaluation - 10/01 6.65, November 2020 7.6, 01/02 6.5 , 05/02 6.1, 09/01 4.9 9%, 04/02 5.9, 12/04 5.5 9% Imaging investigations - 08/03 MRI 50 g prostate, 1 cm potential lesion left posterior lateral apex Individualized Prostate Cancer Risk Calculator - 5-10% high risk A TRUS biopsy - 10/02 NAD 12 core, 45gm - 07/04 MRI Guided 12 core Symptoms include - feeling of weak stream, intermittency. 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 No major barriers to patient understanding were identified. An opportunity to ask questions regarding the treatment plan was provided. All questions were answered. The patient expressed understanding and agreement with the above treatment plan. The patient is aware they should contact our office by phone for worsening of their current condition or the appearance of new urologic symptoms. Compliance is encouraged with any medications and followup testing that is ordered. It is a privilege to participate in the urologic care of your patient. If you have any questions or concerns regarding treatment for the above conditions, or other urologic issues, please do not hesitate to contact me. The office telepho ne contact is [phone]. This note is constructed using voice recognition software. While every effort has been made to ensure accuracy internet programmer errors may have been included. Yours sincerely, Dr Peter Valencia MD, [facility] - Urology Providers of Expert, Compassionate Care for the Genitourinary System Telehealth Telehealth Location of provider rendering services: practice address Location of patient: address on file Patient Identification confirmed using: Name, : Yes Telehealth method: video Patient verbally consented to treatment: Yes Patient verbally consented to billing insurance company: Yes Patient informed of any privacy concerns related to visit: Yes Coding Level of Care Code Tele Est Pt Level 3 (47308) Diagnoses Elevated PSA R97.20 BPH w urinary obs/LUTS N40.1; N13.8
== END 2023-08-03 15:54 | disposition home or self-care (01) ==
LOC: HO.HUSH 12:24
PROVIDERS: PCP Family Medicine; Visit Provider Urology
DX: R97.20 Elevated prostate specific antigen [PSA] (principal); N40.1 Benign prostatic hyperplasia with lower urinary tract symptoms; N13.8 Other obstructive and reflux uropathy
CPT/HCPCS: 99213

== ENCOUNTER → 2023-08-03 12:24 | Outpatient (BNVA) | payer MEDICARE, BC, SELFPAY | PROVIDERS: PCP Family Medicine; Visit Provider Urology ==

== ENCOUNTER 2024-03-04 10:54 | Outpatient (REF) | payer MEDICARE, BC, SELFPAY ==
[2024-03-04 13:41] LABS: PSA,Total (Free>4and<10) 4.76 ng/mL (0.00-4.00)
[2024-03-07 13:23] LABS: Free Prostate Spec Ag 0.5 ng/mL; Percent Free Prostate Spec Ag 11 % (calc) (>25); Prostate Specific Ag Total 4.6 ng/mL (< OR = 4.0)
== END 2024-03-04 10:55 | disposition home or self-care (01) ==
LOC: HO.10HDL 10:54
PROVIDERS: Visit Provider Urology
DX: Z12.5 Encounter for screening for malignant neoplasm of prostate (principal); R97.20 Elevated prostate specific antigen [PSA]
CPT/HCPCS: 36415; 84153; 84154

== ENCOUNTER 2024-03-11 14:07 | Outpatient (AMB) | payer MEDICARE, BC, SELFPAY ==
--- NOTE | 2024-03-11 14:26 | MHC.OFFVIS ---
Intake Visit Reasons: 6m/PSA(pending)Confirmed Intake Note: Patient is Present for Follow Up Urology Medication: Finasteride Antibiotic Allergies:None Blood Thinners:None Allergies No Known Allergies Allergy (Verified 08/03/23 12:29) Medication List - Last Reconciled 03/11/24 by Peter Valencia MD ascorbic acid (vitamin C) (Vitamin C) 500 mg PO DAILY cholecalciferol (vitamin D3) (Vitamin D3) 25 mcg PO DAILY finasteride 5 mg PO DAILY 90 days multivitamin 1 tab PO DAILY HPI Comments Details: Raul is a pleasant male. He is a patient of Dr. Diaz. He is seen for the following urologic conditions - elevated PSA - lower urinary tract symptoms - erectile dysfunction Six-month follow-up. PSA staying in range for him. Continue finasteride Reports erectile dysfunction Previously had used sildenafil Requesting prescription 100 mg sildenafil provided Review in 6 months Elevated PSA remains on finasteride He presents for - further evaluation of elevated PSA Current management is finasteride Laboratory investigations include - a total PSA evaluation - 10/01 6.65, November 2020 7.6, 01/02 6.5, 05/02 6.1, 09/01 4.9 9%, 04/02 5.9, 12/04 5.5 9%, 03/05 4.6 11% Imaging investigations - 08/03 MRI 50 g prostate, 1 cm potential lesion left posterior lateral apex Individualized Prostate Cancer Risk Calculator - 5-10% high risk A TRUS biopsy - 10/02 NAD 12 core, 45gm - 07/04 MRI Guided 12 core NAD Symptoms include - feeling of weak stream, intermittency. 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 Review of Systems Const Denies chills and Denies fever(s) Card Reports no additional complaints and Denies syncope Resp Denies cough GI Denies abdominal pain and Denies heartburn Reports as per HPI and Denies change in libido Neuro Denies syncope Psych Denies change in libido Endo Denies change in libido Physical Exam Const General: cooperative, healthy appearing, comfortable and no acute distress Orientation/consciousness: patient oriented x3 HEENT Face and sinus: Yes normal facial exam Mouth: moist mucous membranes Neck Neck: Yes normal visual inspection, Yes full ROM and Yes trachea midline Chest Chest palpation & inspection: normal inspection of the chest Resp Effort & Inspection: normal respiratory effort, able to speak in complete sentences and no respiratory distress GI Inspection: Yes normal to inspection Back/Spine/Pelvis Cervical Spine: normal cervical lordosis Thoracic/Lumbar Spine: thoracic and lumbar spine normal to inspection Skin General skin exam: no rashes or lesions noted Neuro General: patient oriented x3, gait normal, tone normal and moves all extremities Extrem General: Yes normal to inspection and Yes capillary refill normal Assessment & Plan Assessment & Plan (1) Elevated PSA: Comment: prostate biopsy September 2021 negative Code(s): R97.20 - Elevated prostate specific antigen [PSA] Category: Medical (2) BPH w urinary obs/LUTS: Code(s): N40.1 - Benign prostatic hyperplasia with lower urinary tract symptoms; N13.8 - Other obstructive and reflux uropathy Category: Medical (3) Erectile dysfunction: Code(s): N52.9 - Male erectile dysfunction, unspecified Category: Medical Plan Trial sildenafil 100 mg Six-month follow-up PSA tele Orders: Orders PSA,Total (Free>4and<10) 6 Months R97.20 - Elevated prostate specific antigen [PSA] Medications: New sildenafil administer 60 minutes before intended activity 100 mg PO ONCE 30 days PRN 30 tabs 0RF sexual activity N52.9 - Male erectile dysfunction, unspecified Refilled finasteride 5 mg PO DAILY 90 days 90 tabs 1RF N40.1 - Benign prostatic hyperplasia with lower urinary tract symptoms Patient Instructions: Imaging studies, laboratory and physical exam results were discussed and reviewed in detail. No major barriers to patient understanding were identified. An opportunity to ask questions regarding the treatment plan was provided. All questions were answered. The patient expressed understanding and agreement with the above treatment plan. The patient is aware they should contact our office by phone for worsening of their current condition or the appearance of new urologic symptoms. Compliance is encouraged with any medications and followup testing that is ordered. It is a privilege to participate in the urologic care of your patient. If you have any questions or concerns regarding treatment for the above conditions, or other urologic issues, please do not hesitate to contact me. The office telephone contact is [phone]. This note is constructed using voice recognition software. While every effort has been made to ensure accuracy product applications scientist errors may have been included. Yours sincerely, Dr Peter Valencia MD, [facility] - Urology Providers of Expert, Compassionate Care for the Genitourinary System Coding Level of Care Code Est Pt Level 4 (75394) Diagnoses Elevated PSA R97.20 BPH w urinary obs/LUTS N40.1; N13.8 Erectile dysfunction N52.9
== END 2024-03-11 14:53 | disposition home or self-care (01) ==
PROVIDERS: PCP Family Medicine; Visit Provider Urology
DX: R97.20 Elevated prostate specific antigen [PSA] (principal); N40.1 Benign prostatic hyperplasia with lower urinary tract symptoms; N13.8 Other obstructive and reflux uropathy; N52.9 Male erectile dysfunction, unspecified
CPT/HCPCS: 99214

== ENCOUNTER → 2024-03-11 14:07 | Outpatient (BNVA) | payer MEDICARE, BC, SELFPAY | PROVIDERS: PCP Family Medicine; Visit Provider Urology | DX: R97.20 Elevated prostate specific antigen [PSA] (principal); N52.9 Male erectile dysfunction, unspecified; N40.1 Benign prostatic hyperplasia with lower urinary tract symptoms; N13.8 Other obstructive and reflux uropathy; Z79.899 Other long term (current) drug therapy | CPT/HCPCS: 99212 ==

== ENCOUNTER 2024-06-17 08:35 | Day surgery (SDC) | payer MEDICARE, BC, SELFPAY ==
[2024-06-13 14:05] VITALS: BMI 20.2
--- NOTE | 2024-06-16 12:12 | P.CONAN_ITS ---
Documented by User: Tricia Arnold NP 06/16/24 12:13 HPI - Anesthesia Eval Consult details Narrative: 68yo M for Upper Endoscopy and Colonoscopy Daily ETOH Daily cigars x 4 PMFSH Active Problems Active Problems: All Active Problems Erectile dysfunction (Acute) Chondrocalcinosis of left knee (Acute) Weakness of left foot (Acute) Numbness in feet (Acute) Pseudogout of left knee (Acute) Cellulitis of left ankle (Acute) BPH w urinary obs/LUTS (Acute) Elevated PSA (Acute) Past Medical History Medical History Elevated cholesterol BPH (benign prostatic hyperplasia) COPD (chronic obstructive pulmonary disease) Daily consumption of alcohol Smoker Family History Family history of problems with anesthesia: No Surgical History Surgical History History of esophagogastroduodenoscopy (EGD) Hx of prostate biopsy Hx of colonoscopy History of Problems with Anesthesia: No Social History Social History Household Members: Spouse Alcohol intake: current Alcohol intake frequency: 3 or more drinks per day Alcohol type: beer Patient Tobacco Use Status: Current everyday Tobacco user Tobacco use type: Cigar Years Smoked: 50 Use of substances other than those prescribed or required for medical reasons: Yes Substance Use Type: Marijuana Substance Use Frequency: Occasionally Are you DNR?: No Advance Directives: No Advance Directives Information Provided: Yes Current occupational status: employed 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, 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, 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 Allergies Allergy/AdvReac Type Severity Reaction Status Date / Time No Known Allergies Allergy Verified 08/03/23 12:29 Home Medications ?Medication ?Instructions ?Recorded ?Confirmed ?Last Taken ?Type ascorbic acid (vitamin C) 500 mg 500 mg PO DAILY 11/15/20 06/13/24 Unknown History tablet (Vitamin C) cholecalciferol (vitamin D3) 25 25 mcg PO DAILY 11/15/20 06/13/24 Unknown History mcg (1,000 unit) tablet (Vitamin D3) multivitamin 1 tab PO DAILY 11/15/20 06/13/24 Unknown History naltrexone 50 mg tablet 50 mg PO DAILY 06/13/24 06/13/24 Unknown History Exam Height,Weight and Vital Signs: Height 6 ft 3 in Weight 73.482 kg Assessment and Plan Assessment Anesthesia Assessment: Chart Reviewed Final Anesthetic Review Family History of Problems with Anesthesia: No History of Problems with Anesthesia: No Documented by User: Cathy Raygoza MD 06/17/24 08:52 PMFSH Past Medical History Medical History Elevated cholesterol BPH (benign prostatic hyperplasia) COPD (chronic obstructive pulmonary disease) Daily consumption of alcohol Smoker Surgical History Surgical History History of esophagogastroduodenoscopy (EGD) Hx of prostate biopsy Hx of colonoscopy Social History Social History Household Members: Spouse Alcohol intake: current Alcohol intake frequency: 3 or more drinks per day Alcohol type: beer Patient Tobacco Use Status: Current everyday Tobacco user Tobacco use type: Cigar Years Smoked: 50 Use of substances other than those prescribed or required for medical reasons: Yes Substance Use Type: Marijuana Substance Use Frequency: Occasionally Are you DNR?: No Advance Directives: No Advance Directives Information Provided: Yes Current occupational status: employed 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, 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, 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 Allergies Allergy/AdvReac Type Severity Reaction Status Date / Time No Known Allergies Allergy Verified 08/03/23 12:29 Home Medications ?Medication ?Instructions ?Recorded ?Confirmed ?Last Taken ?Type ascorbic acid (vitamin C) 500 mg 500 mg PO DAILY 11/15/20 06/13/24 Unknown History tablet (Vitamin C) cholecalciferol (vitamin D3) 25 25 mcg PO DAILY 11/15/20 06/13/24 Unknown History mcg (1,000 unit) tablet (Vitamin D3) multivitamin 1 tab PO DAILY 11/15/20 06/13/24 Unknown History naltrexone 50 mg tablet 50 mg PO DAILY 06/13/24 06/13/24 Unknown History Exam Airway Mallampati Class: II TM Dist: >3cm Neck ROM: Full Heart: rrr Lungs: cta Assessment and Plan Assessment Anesthesia Assessment: Anesthesia Plan Discussed Final Anesthetic Review NPO: Yes ASA Class: III Final Preanesthetic Review: No Changes in Pt Med Stat, Meds/Allgs Chart Reviewed, Consent Obtained/Reviewed and Anes Risks/Benef Reviewed Patient Risk: Intermediate Procedure Risk: Low Anesthetic Plan Anesthetic Plan: MAC: Disposition: Standard PACU
[2024-06-17 08:39] VITALS: BP 132/86; PULSE 95; RESP 16; TEMP 36.1; O2SAT 97; BMI 19.9
[2024-06-17] MEDS: Lactated Ringers 1,000 ML 100 ML IVCONT (08:58)
--- NOTE | 2024-06-17 09:08 | MHC.SHP ---
Pre-Procedural Eval Section A - 24 Hr Update-Section A only Date of Service: 06/17/24 The patient is an INPATIENT: No The patient has been examined within 24 hours of the surgical procedure. The History & Physical has been completed within 30 days and I have reviewed it.: Yes Section B - Complete if H&P > 30 days Chief Complaint: Other specified symptoms and signs involving the Allergies: Allergies Allergy/AdvReac Type Severity Reaction Status Date / Time No Known Allergies Allergy Verified 08/03/23 12:29 Plan I have reviewed the history and physical and performed a pertinent physical examination on my patient. No changes have occurred unless specified. Time Spent With Patient Time: Total time managing care of this patient today ____ minutes.
[2024-06-17 09:52] VITALS: BP 90/50; PULSE 71; TEMP 36.2; O2SAT 94
[2024-06-17 10:07] VITALS: BP 112/77; PULSE 75; RESP 16; O2SAT 95
[2024-06-17 10:22] VITALS: BP 120/82; PULSE 80; RESP 18; TEMP 36.2; O2SAT 95
--- NOTE | 2024-06-17 10:30 | OP_ITS ---
DATE OF SERVICE: 06/17/2024 SURGEON: Rene Abreu MD INDICATIONS: Weight loss and change in bowel movements. PREOPERATIVE DIAGNOSIS: POSTOPERATIVE DIAGNOSIS: PROCEDURE PERFORMED: Upper endoscopy with biopsy, colonoscopy to the terminal ileum with biopsy. ESTIMATED BLOOD LOSS: COMPLICATIONS: ANESTHESIA: Monitored anesthesia care. ASSISTANTS: SPECIMENS: DESCRIPTION OF PROCEDURE: A history and physical was performed. The risks and benefits of the procedure were explained to the patient and informed consent was obtained. The patient was placed in the left lateral decubitus position. Digital rectal exam was performed and was found to be normal. The Olympus pediatric video colonoscope was introduced into the rectum and advanced to the cecum. The cecum was identified by transillumination, palpation, and identification of ileocecal valve. Examination was performed and the scope was removed. He tolerated the procedure well and was repositioned for upper endoscopy. The Olympus video gastroscope was introduced into the esophagus, stomach, and duodenum. Examination was performed and the scope was removed. He tolerated both procedures well and was returned to recovery area in stable condition. FINDINGS: Colonoscopy: The terminal ileum was examined and appeared normal. The visualized colonic mucosa was normal. The quality of prep was good. Random biopsies were obtained from the sigmoid. There was some mild diverticulosis. Retroflexed examination was normal. Small internal hemorrhoids were noted. Upper endoscopy, esophagus: The esophagus was normal. There was an irregular EG junction, which was biopsied. Stomach: The stomach showed no evidence of masses, ulcers, or polyps. There was a small sliding hiatal hernia. Antral biopsies were obtained to evaluate for H pylori. Duodenum: The bulb and 2nd portion were normal. IMPRESSION: 1. Normal colonoscopy. 2. Normal upper endoscopy. RECOMMENDATION: Follow up the biopsy results. Five year colon recall for polyp history. MD TAMMI Ryder/WAGNER / [phone] [facility] SYSTEMChristos
[2024-06-17 10:35] VITALS: BP 128/70; PULSE 61; RESP 18; TEMP 36.4; O2SAT 97
== END 2024-06-17 11:10 | disposition home or self-care (01) ==
PROVIDERS: PCP Family Medicine; Visit Provider Internal Medicine Gastroenterology
PROC: (CPT 45380; principal; 2024-06-17 11:00)
DX: R19.4 Change in bowel habit (principal); Z86.010 Personal history of colon polyps; Z80.0 Family history of malignant neoplasm of digestive organs; Z83.719 Family history of colon polyps, unspecified; K57.30 Diverticulosis of large intestine without perforation or abscess without bleeding; K64.8 Other hemorrhoids; R13.10 Dysphagia, unspecified; R68.81 Early satiety; R63.4 Abnormal weight loss; Z68.20 Body mass index [BMI] 20.0-20.9, adult; K44.9 Diaphragmatic hernia without obstruction or gangrene; N40.0 Benign prostatic hyperplasia without lower urinary tract symptoms; J44.9 Chronic obstructive pulmonary disease, unspecified; E78.00 Pure hypercholesterolemia, unspecified; Z79.899 Other long term (current) drug therapy; F17.290 Nicotine dependence, other tobacco product, uncomplicated; F10.20 Alcohol dependence, uncomplicated
CPT/HCPCS: 45380; 43239; 88305; 88313; J1596; J2250; J2704

== ENCOUNTER 2024-08-28 12:41 | Outpatient (REF) | payer MEDICARE, BC, SELFPAY ==
[2024-08-28 14:18] LABS: PSA,Total (Free>4and<10) 3.14 ng/mL (0.00-4.00)
== END 2024-08-28 12:42 | disposition home or self-care (01) ==
LOC: HO.10HDL 12:41
PROVIDERS: Visit Provider Urology
DX: Z12.5 Encounter for screening for malignant neoplasm of prostate (principal); R97.20 Elevated prostate specific antigen [PSA]
CPT/HCPCS: 36415; 84153

== ENCOUNTER 2024-09-10 13:51 | Outpatient (AMB) | payer MEDICARE, BC, SELFPAY ==
--- NOTE | 2024-09-10 13:51 | A.OFFVIS_ITS ---
Intake Visit Reasons: 6m/PSA(set) Intake Note: Patient is present for Telephone PSA Follow up Urology Med: Sildenafil, Finasteride Antibiotic Allergy: None Blood Thinner: None Recent PSA: 08/28/24 PSA 3.14 Clinical Trial Associate Required: No Accompanied by: Self / Same As Patient Allergies No Known Allergies Allergy (Verified 09/10/24 13:53) HPI Comments Details: Raul is a pleasant male. He is a patient of Dr. Diaz. He is seen for the following urologic conditions - elevated PSA - lower urinary tract symptoms - erectile dysfunction Telemedicine Evaluation 15 min Consultation TruLeaf Shruthi Video Six-month follow-up. PSA staying in range for him. Continue finasteride Continue interval surveillance Erectile Dysfunction Previously had used sildenafil 100 mg sildenafil provided Elevated PSA remains on finasteride He presents for - further evaluation of elevated PSA Current management is finasteride Laboratory investigations include - a total PSA evaluation - 10/01 6.65, November 2020 7.6, 01/02 6.5, 05/02 6.1, 09/01 4.9 9%, 04/02 5.9, 12/04 5.5 9%, 03/05 4.6 11%, 09/04 3.1 Imaging investigations - 08/03 MRI 50 g prostate, 1 cm potential lesion left posterior lateral apex Individualized Prostate Cancer Risk Calculator - 5-10% high risk A TRUS biopsy - 10/02 NAD 12 core, 45gm - 07/04 MRI Guided 12 core NAD Symptoms include - feeling of weak stream, intermittency. Overall mild Overall symptoms are mild Therapeutic plan will be - persistent PSA elevation MRI PFSH Medical History Elevated cholesterol BPH (benign prostatic hyperplasia) COPD (chronic obstructive pulmonary disease) Daily consumption of alcohol Smoker Surgical History History of esophagogastroduodenoscopy (EGD) Hx of prostate biopsy Hx of colonoscopy Social History Household Members: Spouse Alcohol intake: current Alcohol intake frequency: 3 or more drinks per day Alcohol type: beer Patient Tobacco Use Status: Current everyday Tobacco user Tobacco use type: Cigar Years Smoked: 50 Substance Use Type: Marijuana Current occupational status: employed 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, 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, 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 Telehealth Telehealth Telehealth Platform: TruLeaf Location of provider rendering services: practice address Location of patient: address on file Patient Identification confirmed using: Name, : Yes Telehealth method: video Patient verbally consented to treatment: Yes Patient verbally consented to billing insurance company: Yes Patient informed of any privacy concerns related to visit: Yes Minutes spent on Phone/Video with Pt.: 15 Assessment & Plan Assessment & Plan (1) Elevated PSA: Comment: prostate biopsy September 2021 negative Code(s): R97.20 - Elevated prostate specific antigen [PSA] Category: Medical (2) BPH w urinary obs/LUTS: Code(s): N40.1 - Benign prostatic hyperplasia with lower urinary tract symptoms; N13.8 - Other obstructive and reflux uropathy Category: Medical (3) Erectile dysfunction: Code(s): N52.9 - Male erectile dysfunction, unspecified Category: Medical Plan Six-month follow-up PSA office Orders: Orders Prostate Specific Antigen 6 Months R97.20 - Elevated prostate specific antigen [PSA] Medications: Refilled finasteride 5 mg PO DAILY 90 days 90 tabs 1RF N40.1 - Benign prostatic hyperplasia with lower urinary tract symptoms sildenafil administer 60 minutes before intended activity 100 mg PO ONCE 30 days PRN 30 tabs 0RF sexual activity N52.9 - Male erectile dysfunction, unspecified Patient Instructions: Imaging studies, laboratory and physical exam results were discussed and reviewed in detail. No major barriers to patient understanding were identified. An opportunity to ask questions regarding the treatment plan was provided. All questions were answered. The patient expressed understanding and agreement with the above treatment plan. The patient is aware they should contact our office by phone for worsening of their current condition or the appearance of new urologic symptoms. Compliance is encouraged with any medications and followup testing that is ordered. It is a privilege to participate in the urologic care of your patient. If you have any questions or concerns regarding treatment for the above conditions, or other urologic issues, please do not hesitate to contact me. The office telephone contact is [phone]. This note is constructed using voice recognition software. While every effort has been made to ensure accuracy low voltage technician errors may have been included. Yours sincerely, Dr Peter Valencia MD, [facility] - Urology Providers of Expert, Compassionate Care for the Genitourinary System Coding Level of Care Code Tele Est Pt Level 3 (85636) Diagnoses Elevated PSA R97.20 BPH w urinary obs/LUTS N40.1; N13.8 Erectile dysfunction N52.9
== END 2024-09-10 14:27 | disposition home or self-care (01) ==
LOC: HO.HUSH 13:51
PROVIDERS: PCP Family Medicine; Visit Provider Urology
DX: R97.20 Elevated prostate specific antigen [PSA] (principal); N40.1 Benign prostatic hyperplasia with lower urinary tract symptoms; N13.8 Other obstructive and reflux uropathy; N52.9 Male erectile dysfunction, unspecified
CPT/HCPCS: 99213

== ENCOUNTER → 2024-09-10 13:51 | Outpatient (BNVA) | payer MEDICARE, BC, SELFPAY | PROVIDERS: PCP Family Medicine; Visit Provider Urology ==

== ENCOUNTER 2025-03-04 10:59 | Outpatient (REF) | payer MEDICARE, BC, SELFPAY ==
--- OUTSIDE RECORDS SUMMARY | 2025-03-04 13:16 | XMS_ITS ---
Author Organization [facility] Address [address] [place] [address] Care Team Providers Care Education And Training Manager Name Role Phone Alisha Maldonado Primary Care Provider Rene Raphael Jr Unavailable [phone] Allergies No Known Allergies REASON FOR VISIT Patient presents today for barretts esophagus Medications Medication SIG (Take, Route, Frequency, Duration) Notes Start Date End Date Status Folic Acid 1 MG Oral for 90 Ac tive Multivitamin Not-Rosalio ing Sildenafil Citrate 100 MG Oral for 30 Active Finasteride 5 MG TAKE 1 TABLET BY DAILY Oral for 90 Active Social History Tobacco Use: Social History Observation Description Date Details (start date - stop date) Current Smoker NA - NA Tobacco Use/Smoking Question Answer Notes Patient is a current smoker How often do you smoke cigarettes? every day How many cigarettes a day do you smoke? 5 or les s Alcohol Screen Question Answer Notes Did you have a drink contain ing alcohol in the past year? Yes How often did you have a dri nk containing alcohol in the past year? 4 or more times a week (4 points) How many drinks did you have on a typical day when you were drinking in the past year? 5 or 6 drinks (2 points) How often did you have 6 or more drinks on one occasion in the past year? Daily or almost daily (4 points) Points 10 Interpretation Positive Section Notes: cigar smoker about 3 a day . 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) Active confirmed Problem [id number] Family history of colon cancer (Z80.0) Active confirmed Vital Signs Blood pressure systolic 00 mm Hg 11/06/20 24 Blood pressure diastolic 00 mm Hg 024 Height 75 in 11/06/2024 Weight 166 lbs 11/06/2024 BMI 20.75 kg/m2 11/06/2024 Encounters Encounter Location Date Provider Diagnosis [facility] [address] [place] [address] 11/06/2024 Rene Abreu Jr Smith's esophagus without dysplasia K22.70 and Family history of colon cancer Z80.0 Assessments Encounter Date Diagnosis (ICD Code) Assessment Notes Treatment Notes Treatment Clinical Notes Section Notes 11/06/2024 Smith's esophagus without dysplasia (ICD-10 - K22.70) Digestive diseases material was printed We discussed treatment of Smith's esophagus today. We discussed treatment of gastroesophageal reflux disease today. We discussed diet, lifestyle modifications, and weight management regarding the treatment of reflux. We recommended he continue omeprazole. Followup will be in 2 years for repeat endoscopy. 11/06/2024 Family history of colon cancer (ICD-10 - Z80.0) We discussed treatment of Smith's esophagus today. We discussed treatment of gastroesophageal reflux disease today. We discussed diet, lifestyle modifications, and weight management regarding the treatment of reflux. We recommended he continue omeprazole. Followup will be in 2 years for repeat endoscopy. Plan Of Treatment Treatment Notes Assessment Notes Smith's esophagus without dysplasia Di gestive diseases material was printed Next Appt Details Follow Up: 1 Year, Reason: Progress Notes * RACHEL NEELY MDOB: 5 (68 yo M)Acc No.[id number]:11/06/2024 Progress Notes Patient:?RACHEL NEELY Provider:?Rene Abreu MD :1955???Age:68 Y???Sex:Male Evens e:11/06/2024 Address:[address] [place], [place] [id number] Pcp:Alisha Maldonado Subjective: * Chief Complaints: * ???1. Patient presents today for barretts esophagus. * HPI: ???New symptom(s):? Rachel is a pleasant 68-year-old man seen today in followup of Smith's esophagus. He was evaluated in June for loss and change in bowel movements. Endoscopy showed a junction which on biopsy showed changes consistent with Smith's esophagus without dysplasia. The stomach biopsies were fairly unremarkable. He also had colonoscopy and biopsies at that time showed no evidence of microscopic or collagenous colitis. We reviewed this today. He feels well. He has no complaints of dysphagia, hematemesis, or melena. We did prescribe omeprazole but is currently not taking this. We discussed the benefits of long-term PPI use in patients with changes of Smith's esophagus. He has no family history of esophageal cancer. * ROS:?General/Constitutional:?Change in appetite?denies.?Fatigue?denies.?ENT:?Patient denies?difficulty swallowing.?Respiratory:?Patient denies?shortness of breath.?Cardiovascular:?Patient denies?chest pain.?Gastrointestinal:?Comments?See HPI for details.?Genitourinary:?Difficulty urinating?denies.?Incontinence?denies.?Musculoskeletal:?Patient denies?muscle aches.?Skin:?Patient denies?pruritis.?Neurologic:?Patient denies?low back pain.?Psychiatric:?Patient denies?mental or physical abuse.? * Medical History:?COPD, Hyper lipidemia, elevated PSA/BPH, Colonoscopy/, normal sigmoid biopsies, five-year followup, Smith's esophagus, EGD in 07/05, no dysplasia, ten-year followup, Neuropathy, Alcohol dependence. * Surgical History:?Denies Pas t Surgical History. * Family History:?Father: dece ased, diagnosed with Colon cancer.?Mother: alive.?Siblings: brother, diagnosed with Colon polyps.? No family history of liver cancer. * Social History:?Tobacco Use:?Tobacco Use/Smoking?Patient is a?current smoker,?How often do you smoke cigarettes??every day,?How many cigarettes a day do you smoke??5 or less.?Drugs/Alcohol:?Alcohol Screen?Did you have a drink containing alcohol in the past year??Yes,?How often did you have a drink containing alcohol in the past year??4 or more times a week (4 points),?How many drinks did you have on a typical day when you were drinking in the past year??5 or 6 drinks (2 points),?How often did you have 6 or more drinks on one occasion in the past year??Daily or almost daily (4 points),?Points?10,?Interpretation?Positive.?Miscellaneous:?Marital status: . 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 ???cigar smoker about 3 a day . * Medications:?Taking Sildenaf il Citrate 100 MG Tablet Oral , Taking Finasteride 5 MG Tablet TAKE 1 TABLET BY MOUTH DAILY Oral , Taking Folic Acid 1 MG Tablet Oral , Not-Taking/PRN Multivitamin , Discontinued Naltrexone HCl 50 MG Tablet TAKE 1 TABLET BY MOUTH EVERY DAY Oral , Discontinued Omeprazole 20 MG Capsule Delayed Release 1 capsule 30 minutes before morning meal Orally Once a day, Discontinued Thiamine HCl 100 MG Tablet Oral , Discontinued Silver Hydrogel , Medication List reviewed and reconciled with the patient * Allergies:?N.K.D.A. Objective: * Vitals:?Wt: 166 lbs, Ht: 75 in, BMI:20.75 Index, BP: 00/00 mm Hg. * Examination: ???General Examination: ?GENERAL APPEARANCE:?in no acute distress.?HEAD:?normocephalic.?EYES:?sclera non-icteric.?ORAL CAVITY:?mucosa moist.?NECK/THYROID:?no lymphadenopathy.?SKIN:?anicteric.?HEART:?S1, S2 normal, no murmurs.?LUNGS:?clear to auscultation bilaterally.?CHEST:?normal shape and expansion.?ABDOMEN:?soft, nontender, nondistended, bowel sounds present, no organomegaly .?EXTREMITIES:?no clubbing, cyanosis, or edema.?PSYCH:?cognitive function intact.? Assessment: * Assessment: 1.?Smith's esophagus witho ut dysplasia - K22.70 (Primary)?2.?Family history of colon cancer - Z80.0? We discussed treatment of Ba rrett's esophagus today. We discussed treatment of gastroesophageal reflux disease today. We discussed diet, lifestyle modifications, and weight management regarding the treatment of reflux. We recommended he continue omeprazole. Followup will be in 2 years for repeat endoscopy. Plan: * Treatment: * Procedure Codes:?3017F COLOR ECTAL CA SCREEN DOC REV, G9903 Pt scrn tbco id as non user, G9745 DOC RSN FOR NOT SCREEN/REC F/U HBP * Preventive Medicine:? ??Screenings:?Fall Risk Screening?Fall Risk Assessment:?No falls in the past year,?Screening:?No falls in the past year,?Assessment:?Not performed, no reason specified,?Plan of Care:?Not documented, no reason specified.? * Follow Up:?1 Year * * Sign off status: Completed true * Provider:?Rene Abreu MD Date:?1 01/07/2024 Generated for Katerine morse/Lashawn/eTransmitting on:?03/04/2025 01:15 PM EDT History and Physical Notes * HPI (History of Present Illness) Category Sub-Category Detail Notes Category Not es New symptom(s) Rachel is a pl easant 68-year-old man seen today in followup of Smith's esophagus. He was evaluated in June for loss and change in bowel movements. Endoscopy showed a junction which on biopsy showed changes consistent with Smith's esophagus without dysplasia. The stomach biopsies were fairly unremarkable. He also had colonoscopy and biopsies at that time showed no evidence of microscopic or collagenous colitis. We reviewed this today. He feels well. He has no complaints of dysphagia, hematemesis, or melena. We did prescribe omeprazole but is currently not taking this. We discussed the benefits of long-term PPI use in patients with changes of Smith's esophagus. He has no family history of esophageal cancer. Examination Category Sub-Category Detail Notes Category Not es General Examination GENERAL APPEARANCE: in no acute di stress HEAD: normocephalic EYES: sclera non-icteric NECK/THYROID: no lymphadenopathy HEART: S1, S2 normal, no mu rmurs CHEST: normal shape and exp ansion LUNGS: clear to auscultatio n bilaterally ABDOMEN: soft, nontender, non distended, bowel sounds present, no organomegaly SKIN: anicteric EXTREMITIES: no clubbing, cyanosi s, or edema PSYCH: cognitive function i ntact ORAL CAVITY: mucosa moist
--- OUTSIDE RECORDS SUMMARY | 2025-03-04 13:16 | XMS_ITS | Patient Health Record ---
Author Organization [facility] Address [address] [place] [address] Care Team Providers Care Carton Making Machinist Name Role Phone Alisha Maldonado Primary Care Provider Rene Raphael Jr Allergies No Known Allergies Results Component Value Reference Range Notes Pathology Reviewed date:07/10/2024 09:54:12 AM Interpretation: Performing Lab:[facility], [address] [place] [phone] Notes/Report: Name: Rachel Astorga ge/Sex: 68/M : 1955 Unit#: [id number] Attend Dr: Rene Abreu MD Re06/17/24 Status : [facility] [place] Location: [facility] Disch: SPEC : [id number] RECD : 06/17/24 STATUS: LINDSAY BARNES NUM: [id number] SANDEEP: 06/17/[address] [facility] [address]: Rene Abreu MD ENTERED: 06/17/24 SP TYPE: Surgical OTHR DR: Alisha Maldonado MD ORDERED: HE Stain/12 , Gross Micro L4/4, Special st. 2, AB/PAS Diagnosis A. Sigmoid, biopsy: Colonic mucosa with no specific change; no evidence of microscopic colitis. B. Duodenum, biopsy: Duodenal mucosa with preserved villi and no specific change. C. Gastric antrum, b iopsy: Gastric antral and body mucosa with no specific change; no intestinal metaplasia or dysplasia. D. Esophagogastric j unction, biopsy: Squamous mucosa with hyperplasia, spongiosis and focal intraepithelia l neutrophils and eosinophils (up to 9 per high-power field) consistent with esop hagitis, and columnar mucosa with mild chronic active inflammation and focal intestinal metaplasia; negative for dysplasia (see comment). Comment: (D): These findings are consistent with Smith's esophagus if the biopsies were taken from above the anato matt gastroesophageal junction. Clinical and endoscopic correlation is advised. Clinical History Pre-Op Dx: Dysphagia and change in bowel habits Post-Op Dx: Normal c olon, normal EGD Microscopic Description Microscopic sections reviewed. AB/PAS on D is positive for intestinal metaplasia with appropriate control. Material Received A. Sigmoid bx's B. Duodenal bx's C. Antral bx's D. EG junction bx's Gross Description Received in four parts. Part A: Received in formalin labeled ?sigmoid bx's? are 2 rahman-pink irregular tissue fragments measuring 0.2 and 0.3 cm, submitted in toto in a cassette labeled A. CONTINUED ON NEXT PAGE Name: Rachel Astorga ge/Sex: 68/M : 1955 Unit#: [id number] Attend Dr: Rene Abreu MD Re06/17/24 [place] : [facility] [place]: [facility] Disch: SPEC : [id number] RECD : 06/17/24-1049 STATUS: LINDSAY BARNES NUM: [id number] SANDEEP: 06/17/[address] [facility] [address]: Rene Arbeu MD ENTERED: 06/17/24-09 15 SP TYPE: Surgical OTHR DR: Alisha Maldonado MD ORDERED: HE Stain/12 , Gross Micro L4/4, Special st. 2, AB/PAS Gross Description (Continued) Part B: Received in formalin labeled ?duodenal bx's? are 2 rahman-pink irregular tissue fragments each measu ring 0.15 cm, submitted in toto in a cassette labeled B. Part C: Received in formalin labeled ?antral bx (sic)? are 2 rahman irregular tissue fragments measuring 0.2 and 0. 3 cm, submitted in toto in a cassette labeled C. Part D: Received in formalin labeled ?EG junction bx's? are 5 zhou-rahman and rahman-pink irregular tissue fra gments each measuring 0.15 cm, submitted in toto in a cassette labeled D. CEDS Special studies orde red and performed: AB/PAS stains on D1. Copies To: Rene Abreu MD [facility] [address] [place] [address] [address] [place] [phone] Alisha Maldonado MD Signed (myke rebolledo on file) Adriana Maywood 06/19/24 1150 END OF REPORT Reason For Referral No Information Medications Medication SIG (Take, Route, Frequency, Duration) Notes Start Date End Date Status Folic Acid 1 MG Oral for 90 Ac tive Multivitamin Not-Rosalio ing Sildenafil Citrate 100 MG Oral for 30 Active Finasteride 5 MG TAKE 1 TABLET BY SOBIA DAILY Oral for 90 Active Immunizations Vaccine Route Administration Date Status Comme nts Influenza Unknown 09/12/2020 Administered Influenza Unknown 10/02/2023 Administered Social History Tobacco Use: Social History Observation [...] cigar smoker about 3 a day . cigar smoker about 3 a day . cigar smoker about 3 a day . Problems Problem Type SNOMED Code ICD Code Onset Dates Problem Status W/U Status Risk Notes Problem History of polyp of colon (situation) (012091069) Personal history of colonic polyps (Z86.010) Active confirmed Problem 76151070 Weight loss (R63.4) Active confirmed Problem 972139058 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) Active confirmed Problem 561155804 Family history of colon cancer (Z80.0) Active confirmed Problem 29835651 Change in bowel movement (R19.8) Active confirmed Vital Signs Temperature 98.7 degrees Fahrenheit 05/19/2024 Blood pressure diastolic 00 mm Hg 11/06/2024 Height 75 in 11/06/2024 Blood pressure systolic 00 mm Hg 11/06/2024 Weight 166 lbs 11/06/2024 BMI 20.75 kg/m2 11/06/2024 Encounters Encounter Location Date Provider Diagnosis [facility] [place] Outpatient [address] [place] [phone] 06/17/2024 Rene Abreu Jr Weight loss R63.4 [facility] [address] [place] [phone] 05/19/2024 Rene Abreu Jr Weight loss R63.4 and Change in bowel movement R19.8 [facility] [address] [place] [phone] 11/06/2024 Rene Abreu Jr Smith's esophagus without dysplasia K22.70 and Family history of colon cancer Z80.0 [facility] [address] [place] [phone] 04/17/2024 Rene Abreu Jr [facility] [address] [place] [phone] 07/10/2024 Rene Abreu Jr Assessments Encounter Date Diagnosis (ICD Code) Assessment Notes Treatment Notes Treatment Clinical Notes Section Notes 06/17/2024 Weight loss (ICD-10 - R63.4) 05/19/2024 Weight loss (ICD-10 - R63.4) Endoscopy material was printed We discussed his symptoms. We discussed possible causes for his symptoms including both upper and lower GI sources. We discussed alcohol and tobacco as risk factors for upper GI tract cancers. We recommended further evaluation of his symptoms with upper and lower GI endoscopy. He is aware of risks and benefits and agrees to proceed. 05/19/2024 Change in bowel movement (ICD-10 - R19.8) We discussed his symptoms. We discussed possible causes for his symptoms including both upper and lower GI sources. We discussed alcohol and tobacco as risk factors for upper GI tract cancers. We recommended further evaluation of his symptoms with upper and lower GI endoscopy. He is aware of risks and benefits and agrees to proceed. 11/06/2024 Smith's esophagus without dysplasia (ICD-10 - [...] years for repeat endoscopy. Plan Of Treatment Pending Test Test Name Order Date TSH REFLEX FREE T4 05/19/2024 Future Test Test Name Order Date COLONOSCOPY 10/21/2020 UPPER GI ENDOSCOPY 05/19/2024 COLONOSCOPY 05/19/2024 Insurance Providers Payer Name Payer Address Payer Phone Subscriber Number Group Number Insured Name Patient Relationship to Insured Coverage Start Date Coverage End Date MEDICARE OF [place] [address] [place] [address] [id number] RACHEL ASTORGA Self - patient is the insured [facility] [address] [place], [place] [id number] RACHEL ASTORGA Self - patient is the insured Medical (General) History Medical History History ICD Code COPD hyperlipidemia elevated PSA/BPH Colonoscopy, normal sigmoid biopsies, five-year followup Smith's esophagus, EGD in 07/05, no dys plasia, ten-year followup Neuropathy Alcohol dependence Surgical History Surgery Date(Month/Year)
--- OUTSIDE RECORDS SUMMARY | 2025-03-04 13:16 | XMS_ITS ---
Author Organization [facility] Address [address] [place] [phone] Care Team Providers Care Project Safety Manager Name Role Phone Alisha Maldonado Primary Care Provider Martha Abreu Jr, Rene Ji REASON FOR VISIT pathology Medications Medication SIG (Take, Route, Fr equency, Duration) Notes Start Date End Date Status Omeprazole 20 MG 1 capsule 30 minutes before morning meal Orally Once a day for 30 day(s) 07/10/2024 Active Encounters Encounter Location Date Provider Diagnosis [facility] [address] [facility] [address] [place] [phone] 07/10/2024 Rene Abreu Jr Plan Of Treatment Medication Medication Name Sig Start Date Stop Date Notes Omeprazole 20 MG 1 capsule 30 minutes before morning meal Orally Once a day for 30 day(s) 07/10/2024 Progress Notes * RACHEL NEELY MDOB: (68 yo M)Acc No.[id number]:07/10/2024 Patient:?RACHEL NEELY :1955???Age:68 Y???Sex:Male Address:[address] [facility] , [place], [address] * Refills? Start Omeprazole Capsule Delayed Release, 20 MG, Orally, 30, 1 capsule 30 minutes before morning meal, Once a day, 30 day(s), Refills=6 * true * Date:? Generated for Katerine morse/Lashawn/eTransmitting on:?03/04/2025 01:16 PM EDT
--- OUTSIDE RECORDS SUMMARY | 2025-03-04 13:17 | XMS_ITS ---
Author Organization [facility] Address [address] [place] [phone] Care Team Providers Care Chin Strap Sewer Name Role Phone Alisha Maldonado Primary Care Provider Rene Raphael Jr [phone] REASON FOR VISIT weight loss, change in bowels Problems Problem Type SNOMED Code ICD Code Onset Dates Problem Status W/U Status Risk Notes Problem History of polyp of colon (situation) (176901433) Personal history of colonic polyps (Z86.010) Active confirmed Encounters Encounter Location Date Provider Diagnosis [facility] [place] [address] [place] [phone] 06/17/2024 Rene Abreu Jr Weight loss R63.4 Assessments Encounter Date Diagnosis (ICD Code) Assessment Notes Treatment Notes Treatment Clinical Notes Section Notes 06/17/2024 Weight loss (ICD-10 - R63.4) Plan Of Treatment No Information Progress Notes * RACHEL NEELY MDOB: 5 (69 yo M)Acc No.[id number]:06/17/2024 EGD and COL/MAC Patient:?RACHEL NEELY Provider:?Rene Abreu MD :1955???Age:68 Y???Sex:Male Evens e:06/17/2024 Address:[address] [place] [address] , [facility] Pcp:Alisha Maldonado Subjective: * Chief Complaints: * ???1. Weight loss, change in bowels. * Medical History:? Objective: * Vitals:? Assessment: * Assessment: 1.?Weight loss - R63.4 (Prim nisha)??? Plan: * Treatment: * Procedure Codes:?G0105 COLOR EC CANCR SCR; COLNSCPY HI RISK, 0529F INTRVL 3+YRS PTS CLNSCP DOCD, 0528F RCMND FLW-UP 10 YRS DOCD, Modifiers: 1P * * The named appointment provid er may or may not be the originator of this progress note, and it is not deemed complete until electronically signed by the appointment provider. Sign off status: Pending * Provider:?Rene Abreu MD Date:?0 06/17/2024 Generated for Katerine morse/Lashawn/Fadi on:?03/04/2025 01:16 PM EDT
[2025-03-04 14:07] LABS: Prostate Specific Antigen 3.91 ng/mL (<0.05-4.0)
== END 2025-03-04 11:00 | disposition home or self-care (01) ==
LOC: HO.10HDL 10:59
PROVIDERS: Visit Provider Urology
DX: R97.20 Elevated prostate specific antigen [PSA] (principal); Z12.5 Encounter for screening for malignant neoplasm of prostate
CPT/HCPCS: 36415; 84153

== ENCOUNTER 2025-03-11 14:32 | Outpatient (AMB) | payer MEDICARE, BC, SELFPAY ==
--- NOTE | 2025-03-11 14:44 | MHC.OFFVIS ---
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 He is a patient of Dr. Diaz. He is seen for the following urologic conditions - elevated PSA - lower urinary tract symptoms - erectile dysfunction Six-month follow-up. PSA staying in range for him. Continue finasteride Continue interval surveillance Refill sildenafil Two prior biopsies normal Erectile Dysfunction Previously had used sildenafil 100 mg sildenafil provided Elevated PSA remains on finasteride He presents for - further evaluation of elevated PSA Current management is finasteride Laboratory investigations include - a total PSA evaluation - 10/01 6.65, November 2020 7.6, 01/02 6.5, 05/02 6.1, 09/01 4.9 9%, 04/02 5.9, 12/04 5.5 9%, 03/05 4.6 11%, 09/04 3.1, 03/06 3.9 Imaging investigations - 08/03 MRI 50 g prostate, 1 cm potential lesion left posterior lateral apex Individualized Prostate Cancer Risk Calculator - 5-10% high risk A TRUS biopsy - 10/02 NAD 12 core, 45gm - 07/04 MRI Guided 12 core NAD Symptoms include - feeling of weak stream, intermittency. Overall mild Overall symptoms are mild Therapeutic plan will be - persistent PSA elevation MRI PFSH Medical History Elevated cholesterol BPH (benign prostatic hyperplasia) COPD (chronic obstructive pulmonary disease) Daily consumption of alcohol Smoker Surgical History History of esophagogastroduodenoscopy (EGD) Hx of prostate biopsy Hx of colonoscopy Social History Household Members: Spouse Alcohol intake: current Alcohol intake frequency: 3 or more drinks per day Alcohol type: beer Patient Tobacco Use Status: Current everyday Tobacco user Tobacco use type: Cigar Years Smoked: 50 Substance Use Type: Marijuana Current occupational status: employed 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, 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, 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 Review of Systems Const Denies chills and Denies fever(s) Card Reports no additional complaints and Denies syncope Resp Denies cough GI Denies abdominal pain and Denies heartburn Reports as per HPI and Denies change in libido Neuro Denies syncope Psych Denies change in libido Endo Denies change in libido Physical Exam Const General: cooperative, healthy appearing, comfortable and no acute distress Orientation/consciousness: patient oriented x3 HEENT Face and sinus: Yes normal facial exam Mouth: moist mucous membranes Neck Neck: Yes normal visual inspection, Yes full ROM and Yes trachea midline Chest Chest palpation & inspection: normal inspection of the chest Resp Effort & Inspection: normal respiratory effort, able to speak in complete sentences and no respiratory distress GI Inspection: Yes normal to inspection Back/Spine/Pelvis Cervical Spine: normal cervical lordosis Thoracic/Lumbar Spine: thoracic and lumbar spine normal to inspection Skin General skin exam: no rashes or lesions noted Neuro General: patient oriented x3, gait normal, tone normal and moves all extremities Extrem General: Yes normal to inspection and Yes capillary refill normal Assessment & Plan Assessment & Plan (1) Erectile dysfunction: Code(s): N52.9 - Male erectile dysfunction, unspecified Category: Medical (2) BPH w urinary obs/LUTS: Code(s): N40.1 - Benign prostatic hyperplasia with lower urinary tract symptoms; N13.8 - Other obstructive and reflux uropathy Category: Medical (3) Elevated PSA: Comment: prostate biopsy September 2021 negative Code(s): R97.20 - Elevated prostate specific antigen [PSA] Category: Medical Plan Six-month follow-up PSA Orders: Orders Prostate Specific Antigen 6 Months R97.20 - Elevated prostate specific antigen [PSA] Patient Instructions: This note is constructed using voice recognition software. 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 Imaging studies, laboratory and physical exam results were discussed and reviewed in detail. No major barriers to patient understanding were identified. An opportunity to ask questions regarding the treatment plan was provided. All questions were answered. The patient expressed understanding and agreement with the above treatment plan. The patient is aware they should contact our office by phone for worsening of their current condition or the appearance of new urologic symptoms. Compliance is encouraged with any medications and followup testing that is ordered. It is a privilege to participate in the urologic care of your patient. If you have any questions or concerns regarding treatment for the above conditions, or other urologic issues, please do not hesitate to contact me. The office telephone contact is [phone]. Sincerely, Dr Peter Valencia MD, [facility] - Urology Compassionate Specialist Care for the Genitourinary System Coding Level of Care Code Est Pt Level 3 (46073) Complex EM visit Add On G2211 Diagnoses Erectile dysfunction N52.9 BPH w urinary obs/LUTS N40.1; N13.8 Elevated PSA R97.20
== END 2025-03-11 15:01 | disposition home or self-care (01) ==
LOC: HO.HUSH 14:32
PROVIDERS: PCP Family Medicine; Visit Provider Urology
DX: N52.9 Male erectile dysfunction, unspecified (principal); N40.1 Benign prostatic hyperplasia with lower urinary tract symptoms; N13.8 Other obstructive and reflux uropathy; R97.20 Elevated prostate specific antigen [PSA]
CPT/HCPCS: 99213; G2211

== ENCOUNTER → 2025-03-11 14:32 | Outpatient (BNVA) | payer MEDICARE, BC, SELFPAY | PROVIDERS: PCP Family Medicine; Visit Provider Urology | DX: N40.1 Benign prostatic hyperplasia with lower urinary tract symptoms (principal); N13.8 Other obstructive and reflux uropathy; R97.20 Elevated prostate specific antigen [PSA]; N52.9 Male erectile dysfunction, unspecified | CPT/HCPCS: 99212 ==

== ENCOUNTER 2025-09-01 11:50 | Outpatient (REF) | payer MEDICARE, BC, SELFPAY ==
[2025-09-01 14:15] LABS: Leukocytes Stool Qualitative NEGATIVE (NEGATIVE)
[2025-09-01 14:22] LABS: Prostate Specific Antigen 2.79 ng/mL (<0.05-4.0)
[2025-09-01 15:17] LABS: E. coli EAEC Not Detected (Not Detect.); E. coli EPEC Not Detected (Not Detect.); E. coli ETEC Not Detected (Not Detect.); E. coli STEC Not Detected (Not Detect.); Shigella sp./EIEC Not Detected (Not Detect.)
--- OUTSIDE RECORDS SUMMARY | 2025-09-01 15:19 | XMS_ITS | Encounter Summary ---
Author Organization [facility] Address [address] [place] [address] Phone Care Team Providers Care Rn Diabetes Educator Name Role Phone Alisha Maldonado MD Primary Care Provider [phone] Reason for Referral * MRI/CAT Scan - Closed Specialty Diagnoses / Procedures Referred By iGsela bradley Referred To Contact Radiology Diagnoses Abnormal chest x-ray Weight loss Smoker Procedures CT Chest Alisha Maldonado MD Phone: tel: fax: [email or web address] Referral ID Status Reason Start Date Expiration Date Visits Re quested Visits Authorized [id number] Closed 07/28/2020 07/28/2021 1 1 Encounter Details Date Type Department Care Team (Late st Contact Info) Description 07/28/2020 Ancillary Orders Virtual Department [address] [place] [address] Alisha Maldonado MD [address] [place] [address] Abnormal chest x-ray; Weight loss; Smoker Social History Tobacco Use Types Packs/Day Years Used Date Smoking Tobacco: Never Assessed Sex and Gender Information Value Date Recorded Sex Assigned at Not on file Legal Sex Male 9:18 AM EDT Gender Identity Not on file Sexual Orientation Not on file documented as of this encounter Plan of Treatment Not on file documented as of this encounter Results * CT CHEST WITH CONTRAST (08/02/2020 2:22 PM EDT) Anatomical Region Laterality Modality Chest Computed Tomogra phy 08/02/2020 8:14 PM EDT Impressions 08/02/2020 8:28 PM EDT Corresponding with prior chest radiograph findings, there is right upper lobe posterolateral pleural thickening with adjacent bandlike atelectasis which may be due to prior infection, inflammation, or trauma. Pulmonary nodules measuring up to 5 mm in the left lower lobe. RECOMMENDATION: Follow-up chest CT in 3-6 months to assess stability of right upper lobe findings and pulmonary nodule. Narrative 08/02/2020 8:28 PM EDT TECHNIQUE: Diagnostic CT CHEST WITH CONTRAST COMPARISON: XR CHEST OUTSIDE (NO INTERPRETATION) FINDINGS: Lines/tubes: None. Lungs, Pleura and Airways: Right upper lobe posterolateral mild pleural thickening with adjacent bandlike atelectasis. Right greater than left apical pleural parenchymal scarring. Left lower lobe 5 mm solid pulmonary nodule (5:337). Lingular 3 mm nodule (5:294). No lobar consolidation, effusion or pneumothorax. Central airways are patent. No bronchiectasis or honeycombing. Heart and mediastinum: The thyroid gland is unremarkable. No significant mediastinal, hilar or axillary lymphadenopathy is seen. The heart and pericardium are within normal limits. Soft tissues: No enlarged axillary or subpectoral lymph nodes. Abdomen: Limited contrast-enhanced views of the upper abdomen show no abnormality within the visualized liver, spleen, or kidneys. The adrenal glands are normal. Bones: The visualized bony thorax is within normal limits. Procedure Note Gianluca Thayer MD - 08/02/2020 TECHNIQUE: Diagnostic CT CHEST WITH CONTRAST COMPARISON: XR CHEST OUTSIDE (NO INTERPRETATION) FINDINGS: Lines/tubes: None. Lungs, Pleura and Airways: Right upper lobe posterolateral mild pleuralthickening with adjacent bandlike atelectasis. Right greater than leftapical pleural parenchymal scarring. Left lower lobe 5 mm solid pulmonarynodule (5:337). Lingular 3 mm nodule (5:294). No lobar consolidation,effusion or pneumothorax. Central airways are patent. No bronchiectasis orhoneycombing. Heart and mediastinum: The thyroid gland is unremarkable. No significantmediastinal, hilar or axillary lymphadenopathy is seen. The heart andpericardium are within normal limits. Soft tissues: No enlarged axillary or subpectoral lymph nodes. Abdomen: Limited contrast-enhanced views of the upper abdomen show noabnormality within the visualized liver, spleen, or kidneys. The adrenalglands are normal. Bones: The visualized bony thorax is within normal limits. IMPRESSION: Corresponding with prior chest radiograph findings, there is right upperlobe posterolateral pleural thickening with adjacent bandlike atelectasiswhich may be due to prior infection, inflammation, or trauma. Pulmonary nodules measuring up to 5 mm in the left lower lobe. RECOMMENDATION: Follow-up chest CT in 3-6 months to assess stability of right upper lobefindings and pulmonary nodule. Alisha Maldonado MD IMG CT CHEST Final Result documented in this encounter Visit Diagnoses Diagnosis Abnormal chest x-ray Nonspecific (abnormal) findings on radiological and other examination of lung field Weight loss Loss of weight Smoker Tobacco use disorder Abnormal chest x-ray Nonspecific (abnormal) findings on radiological and other examination of lung field Weight loss Loss of weight Smoker Tobacco use disorder documented in this encounter Care Teams Rn Diabetes Educator Relationship Specialty Start Date End Date Alisha Maldonado MD [email or web address] PCP - General Family Medicine 07/28/20 documented as of this encounter Additional Source Comments The information contained in this document represents components of the legal health record. It is not the complete legal health record.[facility]
--- OUTSIDE RECORDS SUMMARY | 2025-09-01 15:19 | XMS_ITS | Encounter Summary ---
Author Organization [facility] Address [address] [place] [address] Phone Care Team Providers Care Activated Sludge Operator Name Role Phone Alisha Maldonado MD Primary Care Provider [phone] Reason for Referral * MRI/CAT Scan - Closed Specialty Diagnoses / Procedures Referred By Gisela bradley Referred To Contact Radiology Diagnoses Abnormal CT scan Procedures CT Chest Alisha Maldonado MD Phone: tel: fax: [email or web address] Referral ID Status Reason Start Date Expiration Date Visits Re quested Visits Authorized [id number] Closed 11/02/2020 11/02/2021 1 1 Encounter Details Date Type Department Care Team (Late st Contact Info) Description 11/02/2020 Transcribe Orders [facility] Department [address] [place] [address] Alisha Maldonado MD [address] [place] [phone] [email or web address] Abnormal CT scan (Primary Dx) Social History Tobacco Use Types Packs/Day Years Used Date Smoking Tobacco: Never Assessed Sex and Gender Information Value Date Recorded Sex Assigned at Not on file Legal Sex Male 9:18 AM EDT Gender Identity Not on file Sexual Orientation Not on file documented as of this encounter Plan of Treatment Not on file documented as of this encounter Results * CT CHEST WITHOUT CONTRAST (11/16/2020 10:30 AM EST) Anatomical Region Laterality Modality Chest Computed Tomogra phy 11/16/2020 12:0 4 PM EST Impressions 11/16/2020 12:34 PM EST No worrisome interval change in sub-6 mm left lower lobe pulmonary nodule or other small probably postinflammatory lesions elsewhere in the left lung. No change in pleural parenchymal scarring right apex. Follow-up is recommended per the Fleischner Society guidelines which should be based largely on the patient's smoking history and other risk factors. The subsequent follow-up should be in approximately 9 months is felt warranted. Narrative 11/16/2020 12:34 PM EST HISTORY: Follow-up pulmonary nodule. Abnormal chest CT. COMPARISON: August 02, 2020. TECHNIQUE: Unenhanced imaging obtained from lung apex to base. Sagittal and coronal reformats generated. Automated exposure control utilized. FINDINGS: Lungs and pleura: Sub-6 mm nodule in the left lateral costophrenic angle is measured at slightly greater today but the variance in measurement is under a millimeter and within the error of technique. A few other areas of minor parenchymal density in the left upper lobe are unchanged. Some scarring and pleural thickening along the posterior right chest and apex, including some calcifications suggesting chronicity, is unchanged. There is some minor paraseptal emphysematous changes at the medial left upper lobe. No progressive findings of concern. No pleural fluid or central airway lesion. Nodes: No adenopathy is detected Cardiovascular: Some minor calcific coronary artery changes. Heart not enlarged. No aortic dilatation. Soft tissue and mediastinum: No findings of concern. Upper abdomen: There is a approximately 1 cm hypodensity in the dome of the right hepatic lobe anteriorly which is unchanged. Is not fully characterized on the CTs but stability is reassuring. Hemangioma and cyst are the 2 most likely differential considerations based on appearance and statistical likelihood. Bones: No compression deformity or bony destructive lesions are identified. Procedure Note Clinton Palomo MD - 11/16/2020 HISTORY: Follow-up pulmonary nodule. Abnormal chest CT. COMPARISON: August 02, 2020. TECHNIQUE: Unenhanced imaging obtained from lung apex to base. [place]itt[place] coronal reformats generated. Automated exposure control utilized. FINDINGS: Lungs and pleura: Sub-6 mm nodule in the left lateral costophrenic angleis measured at slightly greater today but the variance in measurement isunder a millimeter and within the error of technique. A few other areas ofminor parenchymal density in the left upper lobe are unchanged. Somescarring and pleural thickening along the posterior right chest and apex,including some calcifications suggesting chronicity, is unchanged. Thereis some minor paraseptal emphysematous changes at the medial left upperlobe. No progressive findings of concern. No pleural fluid or centralairway lesion. Nodes: No adenopathy is detected Cardiovascular: Some minor calcific coronary artery changes. Heart notenlarged. No aortic dilatation. Soft tissue and mediastinum: No findings of concern. Upper abdomen: There is a approximately 1 cm hypodensity in the dome ofthe right hepatic lobe anteriorly which is unchanged. Is not fullycharacterized on the CTs but stability is reassuring. Hemangioma and cystare the 2 most likely differential considerations based on appearance andstatistical likelihood. Bones: No compression deformity or bony destructive lesions areidentified. IMPRESSION: No worrisome interval change in sub-6 mm left lower lobe pulmonary noduleor other small probably postinflammatory lesions elsewhere in the leftlung. No change in pleural parenchymal scarring right apex. Follow-up isrecommended per the Fleischner Society guidelines which should be basedlargely on the patient's smoking history and other risk factors. Thesubsequent follow-up should be in approximately 9 months is feltwarranted. Alisha Maldonado MD [facility] [place] Final Result documented in this encounter Visit Diagnoses Diagnosis Abnormal CT scan- Primary Other nonspecific (abnormal) findings on radiological and other examinations of body structure Abnormal CT scan Other nonspecific (abnormal) findings on radiological and other examinations of body structure documented in this encounter Care Teams Activated Sludge Operator Relationship Specialty Start Date End Date Alisha Maldonado MD [email or web address] PCP - General Family Medicine 07/28/20 documented as of this encounter Additional Source Comments The information contained in this document represents components of the legal health record. It is not the complete legal health record.[facility]
--- OUTSIDE RECORDS SUMMARY | 2025-09-01 15:19 | XMS_ITS | Encounter Summary ---
Author Organization [facility] Address [address] [address] Phone Care Team Providers Care Driver/Merchandiser Name Role Phone Alisha Maldonado MD Primary Care Provider [phone] Encounter Details Date Type Department Care Team (Late st Contact Info) Description 07/28/2020 Procedure Pass [facility], Ct Scan - [address] [address] Social History Tobacco Use Types Packs/Day Years Used Date Smoking Tobacco: Never Assessed Sex and Gender Information Value Date Recorded Sex Assigned at Not on file Legal Sex Male 9:18 AM EDT Gender Identity Not on file Sexual Orientation Not on file documented as of this encounter Plan of Treatment Not on file documented as of this encounter Visit Diagnoses Not on filedocumented in this encounter Care Teams Driver/Merchandiser Relationship Specialty Start Date End Date Alisha Maldonado MD [email or web address] PCP - General Family Medicine 07/28/20 documented as of this encounter Additional Source Comments The information contained in this document represents components of the legal health record. It is not the complete legal health record.[facility]
--- OUTSIDE RECORDS SUMMARY | 2025-09-01 15:19 | XMS_ITS | Encounter Summary ---
Author Organization [facility] Address [address] [address] Phone Care Team Providers Care Ramp Supervisor Name Role Phone Alisha Maldonado MD Primary Care Provider [phone] Encounter Details Date Type Department Care Team (Late st Contact Info) Description 11/02/2020 Procedure Pass [facility], Ct Scan - [address] [address] Social History Tobacco Use Types Packs/Day Years [...] on filedocumented in this encounter Care Teams Ramp Supervisor Relationship Specialty Start Date End Date Alisha Maldonado MD [email or web address] PCP - General Family Medicine 07/28/20 documented as of this encounter Additional Source Comments The information contained in this document represents components of the legal health record. It is not the complete legal health record.[facility]
--- OUTSIDE RECORDS SUMMARY | 2025-09-01 15:19 | XMS_ITS | Encounter Summary ---
Author Organization [facility] Address [address] [place] [address] Phone Care Team Providers Care Roll Tender Name Role Phone Alisha Maldonado MD Primary Care Provider Reason for Referral * MRI/CAT Scan - Closed Specialty Diagnoses / Procedures Referred By Gisela bradley Referred To Contact Radiology Diagnoses Dizziness and giddiness Procedures MRI Brain Heriberto Nur MD Phone: tel: fax: [email or web address] Referral ID Status Reason Start Date Expiration Date Visits Re quested Visits Authorized [id number] Closed 08/23/2022 08/23/2023 1 1 Encounter Details Date Type Department Care Team (Late st Contact Info) Description 08/23/2022 Transcribe Orders Virtual Department [address] [place] [address] Heriberto Nur MD [address] [place] [phone] [email or web address] Dizziness and giddiness (Primary Dx) Social History Tobacco Use Types Packs/Day Years Used Date Smoking Tobacco: Never Assessed Sex and Gender Information Value Date Recorded Sex Assigned at Not on file Legal Sex Male 9:18 AM EDT Gender Identity Not on file Sexual Orientation Not on file documented as of this encounter Plan of Treatment Not on file documented as of this encounter Results * MRI BRAIN WITHOUT CONTRAST (09/19/2022 11:41 AM EST) Anatomical Region Laterality Modality Head Magnetic Resonan ce 09/19/2022 3:06 PM EST Impressions 09/19/2022 3:18 PM EST No acute intracranial abnormality. Narrative 09/19/2022 3:18 PM EST MRI BRAIN WITHOUT CONTRAST TECHNIQUE: MRI BRAIN WITHOUT CONTRAST Multi-sequence, multi-planar MRI of the brain was performed without intravenous contrast. COMPARISON: None FINDINGS: Brain Parenchyma: No evidence of acute infarct, mass lesion, or hemorrhage. Corpus callosum and midline structures are unremarkable Ventricular System and Extra-Axial Spaces: Normal for the patient's age. No evidence of midline shift or hydrocephalus. The visualized cisternal and intracanalicular portions of the bilateral 7th and 8th cranial nerves appear symmetric. No evidence of cerebellopontine angle mass. The internal auditory canals appear symmetric. Extracranial Structures: Arterial flow voids in the skull base are present. The visualized paranasal sinuses and mastoid air cells are clear. The orbits are unremarkable Procedure Note Nina Craig MD - 09/19/2022 MRI BRAIN WITHOUT CONTRAST TECHNIQUE: MRI BRAIN WITHOUT CONTRAST Multi-sequence, multi-planar MRI of the brain was performed withoutintravenous contrast. COMPARISON: None FINDINGS: Brain Parenchyma: No evidence of acute infarct, mass lesion, orhemorrhage. Corpus callosum and midline structures are unremarkable Ventricular System and Extra-Axial Spaces: Normal for the patient's age.No evidence of midline shift or hydrocephalus. The visualized cisternaland intracanalicular portions of the bilateral 7th and 8th cranial nervesappear symmetric. No evidence of cerebellopontine angle mass. The internalauditory canals appear symmetric. Extracranial Structures: Arterial flow voids in the skull base arepresent. The visualized paranasal sinuses and mastoid air cells are clear. Theorbits are unremarkable IMPRESSION: No acute intracranial abnormality. Heriberto Nur MD IMG MR HEAD/NECK Final Resu lt documented in this encounter Visit Diagnoses Diagnosis Dizziness and giddiness- Primary Dizziness and giddiness documented in this encounter Care Teams Roll Tender Relationship Specialty Start Date End Date Alisha Maldonado MD [email or web address] PCP - General Family Medicine 07/28/20 documented as of this encounter Additional Source Comments The information contained in this document represents components of the legal health record. It is not the complete legal health record.[facility]
--- OUTSIDE RECORDS SUMMARY | 2025-09-01 15:19 | XMS_ITS | Encounter Summary ---
Author Organization [facility] Address [address] [place] [address] Phone Care Team Providers Care Hangar Attendant Name Role Phone Alisha Maldonado MD Primary Care Provider [phone] Encounter Details Date Type Department Care Team (Late st Contact Info) Description 09/08/2022 Transcribe Orders Virtual Department [address] [place] [address] Heriberto Nur MD [address] [place] [id number] Social History Tobacco Use Types Packs/Day Years [...] on filedocumented in this encounter Care Teams Hangar Attendant Relationship Specialty Start Date End Date Alisha Maldonado MD PCP - General Family Medicine 07/28/20 documented as of this encounter Additional Source Comments The information contained in this document represents components of the legal health record. It is not the complete legal health record.[facility]
--- OUTSIDE RECORDS SUMMARY | 2025-09-01 15:19 | XMS_ITS | Clinical Summary ---
Author Organization [facility] Address [address] [place] [address] Phone Care Team Providers Care Data Mining Analyst Name Role Phone Alisha Maldonado MD Primary Care Provider [phone] Medications umeclidinium-vilan teroL (ANORO ELLIPTA) 62.5-25 mcg/actuation diskus inhaler Activ e omega-3s/dha/epa/f jordan oil/D3 (VITAMIN-D + OMEGA-3 ORAL) Active Immunizations Immunization Administration Dates Next Due INFLUENZA, SPLIT VIRUS, TRIV ALENT W/ PRESERVATIVE IM 09/12/2020 Influenza High-Dose Quadriva lent Preservative Free IM 09/07/2022,07/26/2022,09/27/2020 Influenza Quadrivalent Adjuv anted Preservative Free IM 10/16/2021 Influenza Quadrivalent MDCK Preservative Free IM 12/11/2017 Influenza Quadrivalent Preservative Free IM 07/14,11/02/2016 Pneumococcal polysaccharide PPSV23 08/04/2020 Pneumococcal, Unspecified Formulation 08/24/2009 ,09/14/2008,07/18/2007 Td, unspecified formulation 03/23/2009, 4 Tdap 05/10/2016 Zoster recombinant 11/24/2021 Social History Tobacco Use Types Packs/Day Years Used Date Smoking Tobacco: Never Assessed Education Answer Date Recorded Are you interested in more education? Not on audrey e 03/09/2023 Are you concerned about learning? Not on file 03/09/2023 No 03/09/2023 No 03/09/2023 Digital Access Answer Date Recorded No 04/10/2023 No 04/10/2023 Reliable internet access at home? Not on file 04/10/2023 Device with a working camera? Not on file Sex and Gender Information Value Date Recorded Sex Assigned at Not on file Legal Sex Male 9:18 AM EDT Gender Identity Not on file Sexual Orientation Not on file Last Filed Vital Signs Vital Sign Reading Time Taken Comments Blood Pressure - - Pulse - - Temperature - - Respiratory Rate - - Oxygen Saturation - - Inhaled Oxygen Concentration - - Weight 77.1 kg (170 lb) 09/13/2022 1:14 PM EDT Height 190.5 cm (6' 3 ) 09/13/2022 1:14 PM EDT Body Mass Index 21.25 09/13/2022 1:14 PM EDT Plan of Treatment Health Maintenance Due Date Last Done Comments LIPID PANEL 1954 DEPRESSION SCREENING 1966 SMOKING Hx and SMOKELESS TOBACCO SCREENING 1967 HEPATITIS C SCREENING 1972 COLOGUARD 1999 COLONOSCOPY 1999 COLORECTAL CANCER SCREENING 1999 FIT TEST 1999 FOBT 1999 SIGMOIDOSCOPY 1999 VIRTUAL COLONOSCOPY 1999 PNEUMOCOCCAL VACCINES (50+ years) (2 of 2 - PCV) 08/04/2021 08/04/2020 ZOSTER VACCINES (2 of 2) 01/19/2022 11/24/2021 INFLUENZA VACCINE (#1) 2025 2, 07/26/2022, 10/16/2021, Additional history exists COVID-19 VACCINE ( season) 2025 09/13/2022, 03/10/2022, 10/16/2021, Additional history exists Adult Td,Tdap Booster 05/10/2026 05/10/2016 , 03/23/2009, 06/07/2004 RSV VACCINE (1 - 1-dose 75+ series) 2029 HEPATITIS A VACCINES Aged Out No long er eligible based on patient's age to complete this topic HIB VACCINES Aged Out No longer eligi ble based on patient's age to complete this topic MENINGOCOCCAL VACCINES (ACWY) Aged Out No longer eligible based on patient's age to complete this topic MENINGOCOCCAL VACCINES (B) Aged Out N o longer eligible based on patient's age to complete this topic Medical Devices Not on file Insurance MEDICARE PART A & B [facility] [address] [address] MEDICARE PART A & B [facility] INDEMNITY MEDICARE PART A & B [facility] INDEMNITY MEDICARE [facility] A & B [employer] OUT OF STATE INDEMNITY MEDICARE PART A & B [facility] OUT [facility] INDEMNITY MEDICARE PART A & B [facility] INDEMNITY MEDICARE PART A & B [facility] INDEMNITY MEDICARE PART A & B [facility]MNITY MEDICARE PART A & B [facility] OUT [facility] INDEMNITY Care Teams Data Mining Analyst Relationship Specialty Start Date End Date Alisha Maldonado MD [email or web address] PCP - General Family Medicine 07/28/20 Additional Source Comments The information contained in this document represents components of the legal health record. It is not the complete legal health record.[facility]
--- OUTSIDE RECORDS SUMMARY | 2025-09-01 15:19 | XMS_ITS | Encounter Summary ---
Author Organization [facility] Address [address] [place] [address] Phone Care Team Providers Care Milieu Coordinator Name Role Phone Alisha Maldonado MD Primary Care Provider [phone] Reason for Referral * MRI/CAT Scan - Closed Specialty Diagnoses / Procedures Referred By Gisela bradley Referred To Contact Radiology Diagnoses Solitary pulmonary nodule Procedures CT Chest Alisha Maldonado MD Phone: tel: fax: [email or web address] Referral ID Status Reason Start Date Expiration Date Visits Re quested Visits Authorized [id number] Closed 07/22/2021 07/22/2022 1 1 Encounter Details Date Type Department Care Team (Late st Contact Info) Description 07/22/2021 Transcribe Orders Virtual Department [address] [place] [address] Alisha Maldonado MD [address] [place] [phone] [email or web address] Solitary pulmonary nodule (Primary Dx) Social History Tobacco Use Types [...] encounter Results * CT CHEST WITHOUT CONTRAST (09/16/2021 10:41 AM EDT) Anatomical Region Laterality Modality Chest Computed Tomogra phy 09/16/2021 10:4 5 AM EDT Impressions 09/16/2021 11:08 AM EDT 1.Bilateral pulmonary nodules, more numerous on the left, all measuring 5 mm or less are stable from 08/02/2020 and very likely benign. No follow-up is clearly indicated. 2.No other significant changes. Narrative 09/16/2021 11:[address] CHEST WITHOUT CONTRAST HISTORY: Follow-up pulmonary nodule, abnormal previous exam. TECHNIQUE: Multidetector CT of the chest was performed without intravenous contrast using tailored dose modulation. COMPARISON: CT chest exams 11/16/2020 and 08/02/2020. FINDINGS: Devices/Tubes/Lines: None. Lungs: Right lung: Pleural/parenchymal scarring in the apex and upper lobe posterior laterally is stable. No new suspicious pulmonary nodules or masses. 4 mm opacity intimately associated with the minor fissure (image 207) is stable and very likely postinflammatory. Small amount of discoid atelectasis in the lower lobe at the base. No evidence of acute infiltrates. Left lung: Mild pleural/parenchymal scarring in the apex is stable. Stable 5 mm groundglass nodule in the upper lobe (image 105) 3 mm nodule in the lower lobe posterior laterally on CT image 110 is stable. 2 mm nodule in the anterior medial aspect of the upper lobe (image 116) stable. 2 mm probable calcified granuloma in the lower lobe at the base (image 291) is stable. The previously described 5 mm nodule in the lateral costophrenic angle (image 318) is stable from 08/02/2020. No new suspicious pulmonary nodules. No evidence of acute infiltrates. Pleura: No pleural effusions. Calcified pleural plaque within the apices, more extensive on right than left) similar to prior CTs. No pneumothorax. Mediastinum: No evidence of mediastinal masses. Heart size remains normal. No pericardial effusion. Lymph Nodes: Specious lymph nodes. Upper Abdomen: Stable 1 cm cyst in the dome of the liver. No significant changes. Chest Wall: No evidence of chest wall masses. Bones: No suspicious lytic or blastic lesions within the bones. Procedure Note Du Aaron MD - 09/16/2021 CT CHEST WITHOUT CONTRAST HISTORY: Follow-up pulmonary nodule, abnormal previous exam. TECHNIQUE: Multidetector CT of the chest was performed without intravenouscontrast using tailored dose modulation. COMPARISON: CT chest exams 11/16/2020 and 08/02/2020. FINDINGS: Devices/Tubes/Lines: None. Lungs: Right lung: Pleural/parenchymal scarring in the apex and upper lobeposterior laterally is stable. No new suspicious pulmonary nodules ormasses. 4 mm opacity intimately associated with the minor fissure (oicat466) is stable and very likely postinflammatory. Small amount of discoidatelectasis in the lower lobe at the base. No evidence of acuteinfiltrates. Left lung: Mild pleural/parenchymal scarring in the apex is stable. Stable5 mm groundglass nodule in the upper lobe (image 105) 3 mm nodule in thelower lobe posterior laterally on CT image 110 is stable. 2 mm nodule inthe anterior medial aspect of the upper lobe (image 116) stable. 2 mmprobable calcified granuloma in the lower lobe at the base (image 291) isstable. The previously described 5 mm nodule in the lateral costophrenicangle (image 318) is stable from 08/02/2020. No new suspicious pulmonarynodules. No evidence of acute infiltrates. Pleura: No pleural effusions. Calcified pleural plaque within the apices,more extensive on right than left) similar to prior CTs. Nopneumothorax. Mediastinum: No evidence of mediastinal masses. Heart size remains normal.No pericardial effusion. Lymph Nodes: Specious lymph nodes. Upper Abdomen: Stable 1 cm cyst in the dome of the liver. No significantchanges. Chest Wall: No evidence of chest wall masses. Bones: No suspicious lytic or blastic lesions within the bones. IMPRESSION: 1.Bilateral pulmonary nodules, more numerous on the left, all measuring 5mm or less are stable from 08/02/2020 and very likely benign. No follow-upis clearly indicated. 2.No other significant changes. Alisha Maldonado MD [facility] CT CHEST Final Result documented in this encounter Visit Diagnoses Diagnosis Solitary pulmonary nodule- Primary Solitary pulmonary nodule documented in this encounter Care Teams Milieu Coordinator Relationship Specialty Start Date End Date Alisha Maldonado MD [email or web address] PCP - General Family Medicine 07/28/20 documented as of this encounter Additional Source Comments The information contained in this document represents components of the legal health record. It is not the complete legal health record.[facility]
--- OUTSIDE RECORDS SUMMARY | 2025-09-01 15:19 | XMS_ITS | Encounter Summary ---
Author Organization [facility] Address [address] [place] [address] Phone Care Team Providers Care Naval Aircrewman Operator Name Role Phone Alisha Maldonado MD Primary Care Provider [phone] Encounter Details Date Type Department Care Team (Late st Contact Info) Description 07/28/2020 Ancillary Orders [facility],Outside Imaging [address] [place] [address] System, Provider Not In, [facility] [address] [address] Social History Tobacco Use Types Packs/Day Years Used Date Smoking Tobacco: Never Assessed Sex and Gender Information Value Date Recorded Sex Assigned at Not on file Legal Sex Male 9:18 AM EDT Gender Identity Not on file Sexual Orientation Not on file documented as of this encounter Plan of Treatment Not on file documented as of this encounter Results * XR Chest Outside (No Interpretation) (07/27/2020 12:00 AM EDT) Narrative SYSTEMGENERATED, DOCUMENTATION - 07/28/2020 11:54 AM EDT This study is for PACS storage only and not for interpretation. us Provider Not In System PhD IMG OUTSIDE IMAGING W /OUT INTERPRETATION Final Result documented in this encounter Visit Diagnoses Not on filedocumented in this encounter Care Teams Naval Aircrewman Operator Relationship Specialty Start Date End Date Alisha Maldonado MD [email or web address] PCP - General Family Medicine 07/28/20 documented as of this encounter Additional Source Comments The information contained in this document represents components of the legal health record. It is not the complete legal health record.[facility]
--- OUTSIDE RECORDS SUMMARY | 2025-09-01 15:19 | XMS_ITS | Encounter Summary ---
Author Organization [facility] Address [address] [place] [address] Phone Care Team Providers Care Multimedia Authoring Specialist Name Role Phone Alisha Maldonado MD Primary Care Provider [phone] Encounter Details Date Type Department Care Team (Late st Contact Info) Description 07/22/2021 Procedure Pass [facility], Ct Scan - [address] [address] Social History Tobacco Use Types Packs/Day Years [...] on filedocumented in this encounter Care Teams Multimedia Authoring Specialist Relationship Specialty Start Date End Date Alisha Maldonado MD [email or web address] PCP - General Family Medicine 07/28/20 documented as of this encounter Additional Source Comments The information contained in this document represents components of the legal health record. It is not the complete legal health record.[facility]
--- OUTSIDE RECORDS SUMMARY | 2025-09-01 15:19 | XMS_ITS | Encounter Summary ---
Author Organization [facility] Address [address] [place] [address] Phone Care Team Providers Care Command Center Officer Name Role Phone Alisha Maldonado MD Primary Care Provider [phone] Encounter Details Date Type Department Care Team (Late st Contact Info) Description 08/23/2022 Procedure Pass [facility], [address] [address] Social History Tobacco Use Types Packs/Day Years [...] on filedocumented in this encounter Care Teams Command Center Officer Relationship Specialty Start Date End Date Alisha Maldonado MD [email or web address] PCP - General Family Medicine 07/28/20 documented as of this encounter Additional Source Comments The information contained in this document represents components of the legal health record. It is not the complete legal health record.[facility]
[2025-09-14 13:36] LABS: Fecal Fat - Coll Duration 24 Hours
== END 2025-09-01 11:51 | disposition home or self-care (01) ==
LOC: HO.10HDL 11:50
PROVIDERS: Internal Medicine Gastroenterology; Visit Provider Urology
DX: Z12.5 Encounter for screening for malignant neoplasm of prostate (principal); R97.20 Elevated prostate specific antigen [PSA]
CPT/HCPCS: 36415; 82656; 82710; 84153; 87177; 87209; 87507; 89055

== ENCOUNTER 2025-09-08 12:59 | Outpatient (AMB) | payer MEDICARE, BC, SELFPAY ==
--- OUTSIDE RECORDS SUMMARY | 2024-06-17 06:10 | XMS_ITS ---
Author Organization [facility] Address [address] [place] [id number] Care Team Providers Care Local Superintendent Name Role Phone Alisha Maldonado Primary Care Provider Rene Raphael Jr REASON FOR VISIT weight loss, change in bowels Problems Problem Type SNOMED Code ICD Code Onset Dates Problem Status W/U Status Risk Notes Problem History of polyp of colon (situation) (400573847) Personal history of colonic polyps (Z86.010) Active confirmed Encounters Encounter Location Date Provider [place] [facility] [place] [address] [place] [phone] 06/17/2024 Rene Abreu Jr Weight loss R63.4 Assessments Encounter Date Diagnosis (ICD Code) Assessment Notes Treatment Notes Treatment Clinical Notes Section Notes 06/17/2024 Weight loss (ICD-10 - R63.4) Plan Of Treatment No Information Progress Notes * RACHEL NEELY MDOB: 5 (69 yo M)Acc No.[id number]:06/17/2024 EGD and COL/MAC Patient: RACHEL SR Provider: Leora Abreu MD :1955 A ge:68 Y S ex:Male Date:06/17/2024 Address:[address] [place], [place] [phone] Pcp:Alisha Maldonado Subjective: * Chief Complaints: * [...] 06/17/2024 Generated for Katerine morse/Lashawn/Teresasmitting on: 1 04:25 PM EDT
--- NOTE | 2025-09-08 13:02 | A.OFFVIS_ITS ---
Intake Visit Reasons: 6M PSA Intake Note: Patient is present for 6M/PSA Urology Medication:SILDENAFIL,FINASTERIDE Antibiotic Allergy:NONE Blood Thinner:NONE Labs done 09/01/25 : PSA 2.79 PVR:9 mls Hand Bobbin Cleaner Required: No Accompanied by: Self / Same As Patient Allergies No Known Allergies Allergy (Verified 09/08/25 13:03) HPI Comments Details: Raul is a pleasant male. He is a patient of Dr. Diaz. He is seen for the following urologic conditions - elevated PSA - lower urinary tract symptoms - erectile dysfunction PSA in range Continue finasteride Continue interval surveillance Refill sildenafil Two prior biopsies normal Move to yearly follow-up Erectile Dysfunction Previously had used sildenafil 100 mg sildenafil provided Elevated PSA remains on finasteride He presents for - further evaluation of elevated PSA Current management is finasteride Laboratory investigations include - a total PSA evaluation - 10/01 6.65, November 2020 7.6, 01/02 6.5, 05/02 6.1, 09/01 4.9 9%, 04/02 5.9, 12/04 5.5 9%, 03/05 4.6 11%, 09/04 3.1, 03/06 3.91 2.8 Imaging investigations - 08/03 MRI 50 g prostate, 1 cm potential lesion left posterior lateral apex Individualized Prostate Cancer Risk Calculator - 5-10% high risk A TRUS biopsy - 10/02 NAD 12 core, 45gm - 07/04 MRI Guided 12 core NAD Symptoms include - feeling of weak stream, intermittency. Overall mild Overall symptoms are mild Therapeutic plan will be - persistent PSA elevation MRI PFSH Medical History Elevated cholesterol BPH (benign prostatic hyperplasia) COPD (chronic obstructive pulmonary disease) Daily consumption of alcohol Smoker Surgical History History of esophagogastroduodenoscopy (EGD) Hx of prostate biopsy Hx of colonoscopy Social History Household Members: Spouse Alcohol intake: current Alcohol intake frequency: 3 or more drinks per day Alcohol type: beer Patient Tobacco Use Status: Current everyday Tobacco user Tobacco use type: Cigar Years Smoked: 50 Substance Use Type: Marijuana Current occupational status: employed 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, 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, 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 Review of Systems Const Denies chills and Denies fever(s) Card Reports no additional complaints and Denies syncope Resp Denies cough GI Denies abdominal pain and Denies heartburn Reports as per HPI and Denies change in libido Neuro Denies syncope Psych Denies change in libido Endo Denies change in libido Physical Exam Const General: cooperative, healthy appearing, comfortable and no acute distress Orientation/consciousness: patient oriented x3 HEENT Face and sinus: Yes normal facial exam Mouth: moist mucous membranes Neck Neck: Yes normal visual inspection, Yes full ROM and Yes trachea midline Chest Chest palpation & inspection: normal inspection of the chest Resp Effort & Inspection: normal respiratory effort, able to speak in complete sentences and no respiratory distress GI Inspection: Yes normal to inspection Back/Spine/Pelvis Cervical Spine: normal cervical lordosis Thoracic/Lumbar Spine: thoracic and lumbar spine normal to inspection Skin General skin exam: no rashes or lesions noted Neuro General: patient oriented x3, gait normal, tone normal and moves all extremities Extrem General: Yes normal to inspection and Yes capillary refill normal Office Procedures Post Void Residual Post Residual Void Post Void Residual (PVR): 9 [id number] Void Residual by ultrasound Assessment & Plan Assessment & Plan (1) Elevated PSA: Comment: prostate biopsy September 2021 negative Code(s): R97.20 - Elevated prostate specific antigen [PSA] Category: Medical (2) BPH w urinary obs/LUTS: Code(s): N40.1 - Benign prostatic hyperplasia with lower urinary tract symptoms; N13.8 - Other obstructive and reflux uropathy Category: Medical (3) Erectile dysfunction: Code(s): N52.9 - Male erectile dysfunction, unspecified Category: Medical Plan Twelve month follow-up PSA Orders: Orders Prostate Specific Antigen 12 Months R97.20 - Elevated prostate specific antigen [PSA] Patient Instructions: This note is constructed using voice recognition software. While every effort has been made to ensure accuracy oracle application architect errors may have been included. Imaging studies, laboratory and physical exam results were discussed and reviewed in detail. No major barriers to patient understanding were identified. An opportunity to ask questions regarding the treatment plan was provided. All questions were answered. The patient expressed understanding and agreement with the above treatment plan. The patient is aware they should contact our office by phone for worsening of their current condition or the appearance of new urologic symptoms. Compliance is encouraged with any medications and followup testing that is ordered. It is a privilege to participate in the urologic care of your patient. If you have any questions or concerns regarding treatment for the above conditions, or other urologic issues, please do not hesitate to contact me. The office telephone contact is [phone]. Sincerely, Dr Peter Valencia MD, [facility] - Urology Compassionate Specialist Care for the Genitourinary System Coding Level of Care Code Est Pt Level 3 (35784) Complex EM visit Add On G2211 Diagnoses Elevated PSA R97.20 BPH w urinary obs/LUTS N40.1; N13.8 Erectile dysfunction N52.9 CPT Codes Post Residual Void - PVR CPT Code: 30460-Tpbv Void Residual by ultrasound ( [id number])
--- OUTSIDE RECORDS SUMMARY | 2025-09-08 16:25 | XMS_ITS | Encounter Summary ---
Author Organization [facility] Address [address] [address] Phone Care Team Providers Care Space Technologist Name Role Phone Alisha Maldonado MD Primary Care Provider [phone] Encounter Details Date Type Department Care Team (Late st Contact Info) Description 11/02/2020 Procedure Pass [facility], Ct Scan - [address] [address] Social History Tobacco Use Types Packs/Day Years [...] on filedocumented in this encounter Care Teams Space Technologist Relationship Specialty Start Date End Date Alisha Maldonado MD [email or web address] PCP - General Family Medicine 07/28/20 documented as of this encounter Additional Source Comments The information contained in this document represents components of the legal health record. It is not the complete legal health record.[facility]
--- OUTSIDE RECORDS SUMMARY | 2025-09-08 16:25 | XMS_ITS | Clinical Summary ---
Author Organization [facility] Address [address] [place] [address] Phone Care Team Providers Care Dimpling Machine Operator Name Role Phone Alisha Maldonado MD Primary Care Provider [phone] Medications umeclidinium-vilan teroL (ANORO ELLIPTA) 62.5-25 mcg/actuation [...] file Insurance MEDICARE PART A & B [facility] MEDICARE PART A & B [facility] OUT [facility] INDEMNITY MEDICARE PART A & B [facility] INDEMNITY MEDICARE PART A & B [employer] OUT OF STATE INDEMNITY MEDICARE PART A & B [facility]MN[facility] MEDICARE PART A & B [facility]DEMNITY MEDICARE PART A & B [facility]MN[facility] MEDICARE PART A & B [facility]MN[facility] MEDICARE PART A & B [facility] OUT [facility] IN[facility]MN[facility] Care Teams Dimpling Machine Operator Relationship Specialty Start Date End Date Alisha Maldonado MD [email or web address] PCP - General Family Medicine 07/28/20 Additional Source Comments The information contained in this document represents components of the legal health record. It is not the complete legal health record.[facility]
--- OUTSIDE RECORDS SUMMARY | 2025-09-08 16:25 | XMS_ITS | Encounter Summary ---
Author Organization [facility] Address [address] [place] [address] Phone Care Team Providers Care Plywood Layup Line Core Feeder Name Role Phone Alisha Maldonado MD Primary Care Provider [phone] Reason for Referral * MRI/CAT Scan - Closed Specialty Diagnoses / Procedures Referred By Gisela bradley Referred To Contact Radiology Diagnoses Solitary pulmonary nodule Procedures CT Chest Alisha Maldonado MD Phone: tel: fax: mailto:[email or web address] Referral ID Status Reason Start Date Expiration Date Visits Re quested Visits Authorized [id number] Closed 07/22/2021 07/22/2022 1 1 Encounter Details Date Type Department Care Team (Late st Contact Info) Description 07/22/2021 Transcribe Orders Virtual Department [address] [place] [address] Alisha Maldonado MD [address] [place] [id number] [email or web address] Solitary pulmonary nodule (Primary Dx) Social History [...] opacity intimately associated with the minor fissure ([id number]) is stable and very likely postinflammatory. Small [...] 2.No other significant changes. Alisha Maldonado MD [facility] CT CHEST Final Result documented in this encounter Visit Diagnoses Diagnosis Solitary pulmonary nodule- Primary Solitary pulmonary nodule documented in this encounter Care Teams Plywood Layup Line Core Feeder Relationship Specialty Start Date End Date Alisha Maldonado MD [email or web address] PCP - General Family Medicine 07/28/20 documented as of this encounter Additional Source Comments The information contained in this document represents components of the legal health record. It is not the complete legal health record.[facility]
--- OUTSIDE RECORDS SUMMARY | 2025-09-08 16:25 | XMS_ITS | Encounter Summary ---
Author Organization [facility] Address [address] [place] [address] Phone Care Team Providers Care Stadium Manager Name Role Phone Alisha Maldonado MD Primary Care Provider [phone] Encounter Details Date Type Department Care Team (Late st Contact Info) Description 07/22/2021 Procedure Pass [facility], Ct Scan - [address] [address] Social History Tobacco Use Types Packs/Day Years [...] on filedocumented in this encounter Care Teams Stadium Manager Relationship Specialty Start Date End Date Alisha Maldonado MD [email or web address] PCP - General Family Medicine 07/28/20 documented as of this encounter Additional Source Comments The information contained in this document represents components of the legal health record. It is not the complete legal health record.[facility]
--- OUTSIDE RECORDS SUMMARY | 2025-09-08 16:25 | XMS_ITS | Encounter Summary ---
Author Organization [facility] Address [address] [address] Phone Care Team Providers Care Operating Room Aide Name Role Phone Alisha Maldonado MD Primary Care Provider [phone] Encounter Details Date Type Department Care Team (Late st Contact Info) Description 07/28/2020 Procedure Pass [facility], Ct Scan - [address] [address] Social History Tobacco Use Types Packs/Day Years [...] on filedocumented in this encounter Care Teams Operating Room Aide Relationship Specialty Start Date End Date Alisha Maldonado MD [email or web address] PCP - General Family Medicine 07/28/20 documented as of this encounter Additional Source Comments The information contained in this document represents components of the legal health record. It is not the complete legal health record.[facility]
--- OUTSIDE RECORDS SUMMARY | 2025-09-08 16:25 | XMS_ITS | Encounter Summary ---
Author Organization [facility] Address [address] [place] [address] Phone Care Team Providers Care Telecommunications Consultant Name Role Phone Alisha Maldonado MD Primary Care Provider [phone] Encounter Details Date Type Department Care Team (Late st Contact Info) Description 07/28/2020 Ancillary Orders [facility],Outside Imaging [address] [place] [address] System, Provider Not In, PhD Partners [address] [address] Social History Tobacco Use Types Packs/Day Years [...] on filedocumented in this encounter Care Teams Telecommunications Consultant Relationship Specialty Start Date End Date Alisha Maldonado MD [email or web address] PCP - General Family Medicine 07/28/20 documented as of this encounter Additional Source Comments The information contained in this document represents components of the legal health record. It is not the complete legal health record.[facility]
--- OUTSIDE RECORDS SUMMARY | 2025-09-08 16:25 | XMS_ITS | Encounter Summary ---
Author Organization [facility] Address [address] [place] [address] Phone Care Team Providers Care Supervisor Packing Name Role Phone Alisha Maldonado MD Primary Care Provider [phone] Encounter Details Date Type Department Care Team (Late st Contact Info) Description 09/08/2022 Transcribe Orders Virtual Department [address] [place] [address] Heriberto Nur MD [address] [place] [address] Social History Tobacco Use Types Packs/Day Years [...] on filedocumented in this encounter Care Teams Supervisor Packing Relationship Specialty Start Date End Date Alisha Maldonado MD PCP - General Family Medicine 07/28/20 documented as of this encounter Additional Source Comments The information contained in this document represents components of the legal health record. It is not the complete legal health record.[facility]
--- OUTSIDE RECORDS SUMMARY | 2025-09-08 16:26 | XMS_ITS | Encounter Summary ---
Author Organization [facility] Address [address] [place] [address] Phone Care Team Providers Care Paste Mixing Supervisor Name Role Phone Alisha Maldonado MD Primary Care Provider [phone] Encounter Details Date Type Department Care Team (Late st Contact Info) Description 08/23/2022 Procedure Pass [facility], [address] [address] Social History Tobacco Use Types Packs/Day Years [...] on filedocumented in this encounter Care Teams Paste Mixing Supervisor Relationship Specialty Start Date End Date Alisha Maldonado MD [email or web address] PCP - General Family Medicine 07/28/20 documented as of this encounter Additional Source Comments The information contained in this document represents components of the legal health record. It is not the complete legal health record.[facility]
--- OUTSIDE RECORDS SUMMARY | 2025-09-08 16:26 | XMS_ITS | Encounter Summary ---
Author Organization [facility] Address [address] [place] [address] Phone Care Team Providers Care Regional Trainer Name Role Phone Alisha Maldonado MD Primary Care Provider [phone] Reason for Referral * MRI/CAT Scan - Closed Specialty Diagnoses / Procedures Referred By Gisela bradley Referred To Contact Radiology Diagnoses Abnormal CT scan Procedures CT Chest Alisha Maldonado MD Phone: tel: fax: mailto:[email or web address] Referral ID Status Reason Start Date Expiration Date Visits Re quested Visits Authorized [id number] Closed 11/02/2020 11/02/2021 1 1 Encounter Details Date Type Department Care Team (Late st Contact Info) Description 11/02/2020 Transcribe Orders [facility] Department [address] [place] [address] Alisha Maldonado MD [address] [place] [address] [email or web address] Abnormal CT scan (Primary Dx) [...] 9 months is feltwarranted. Alisha Maldonado MD [facility] CT CHEST Final Result documented in this encounter Visit Diagnoses Diagnosis Abnormal CT scan- Primary Other nonspecific (abnormal) findings on radiological and other examinations of body structure Abnormal CT scan Other nonspecific (abnormal) findings on radiological and other examinations of body structure documented in this encounter Care Teams Regional Trainer Relationship Specialty Start Date End Date Alisha Maldonado MD [email or web address] PCP - General Family Medicine 07/28/20 documented as of this encounter Additional Source Comments The information contained in this document represents components of the legal health record. It is not the complete legal health record.[facility]
--- OUTSIDE RECORDS SUMMARY | 2025-09-08 16:26 | XMS_ITS | Encounter Summary ---
Author Organization [facility] Address [address] [place] [address] Phone Care Team Providers Care Cloth Brushing And Sueding Supervisor Name Role Phone Alisha Maldonado MD Primary Care Provider [phone] Reason for Referral * MRI/CAT Scan - Closed Specialty Diagnoses / Procedures Referred By Gisela bradley Referred To Contact Radiology Diagnoses Dizziness and giddiness Procedures MRI Brain Heriberto Nur MD Phone: tel: fax: mailto: Referral ID Status Reason Start Date Expiration Date Visits Re quested Visits Authorized [id number] Closed 08/23/2022 08/23/2023 1 1 Encounter Details Date Type Department Care Team (Late st Contact Info) Description 08/23/2022 Transcribe Orders Virtual Department [address] [place] [address] Heriberto Nur MD [address] [place] [phone] [email or web address] Dizziness and giddiness (Primary Dx) Social History [...] giddiness documented in this encounter Care Teams Cloth Brushing And Sueding Supervisor Relationship Specialty Start Date End Date Alisha Maldonado MD [email or web address] PCP - General Family Medicine 07/28/20 documented as of this encounter Additional Source Comments The information contained in this document represents components of the legal health record. It is not the complete legal health record.[facility]
--- OUTSIDE RECORDS SUMMARY | 2025-09-08 16:26 | XMS_ITS | Patient Health Record ---
Author Organization [facility] Address [address] [place] [address] Care Team Providers Care Demurrage Agent Name Role Phone Alisha Maldonado Primary Care Provider Rene Raphael Jr Unavailable [phone] Allergies No Known Allergies Results Component Value Reference Range Notes GI PANEL Reviewed date:09/07/2025 08:57:25 AM Interpretation: Performing Lab:[facility], [address] [place] [id number] Notes/Report: Campylobacter Not Detected Not Detect. Plesiomonas shigelloides Not Detected Not Detect. Salmonella Not Detected Not Detect. Vibrio Not Detected Not Detect. Vibrio Cholerae Not Detected Not Detect. Yersinia enterocolitica Not Detected Not Detect. E. coli EAEC Not Detected Not Detect. E. coli EPEC Not Detected Not Detect. E. coli ETEC Not Detected Not Detect. E. coli STEC Not Detected Not Detect. E. coli O157 Not applicable Not Detect. E. coli containing the O157 antigen are a subset of Shiga-like toxin-producing E. coli (STEC). Shigella sp./EIEC Not Detected Not Detect. Cryptosporidium Not Detected Not Detect. Cyclospora cayetanensis Not Detected Not Detect. Entamoeba histolytica Not Detected Not Detect. Giardia lamblia Not Detected Not Detect. Adenovirus F 40/41 Not Detected Not Detect. Astrovirus Not Detected Not Detect. Norovirus GI/GII Not Detected Not Detect. Rotavirus A Not Detected Not Detect. Sapovirus Not Detected Not Detect. All results must be correlated with clinical findings. Negative results do not exclude the possibility of gastrointestinal infection and should not be used as the sole basis for diagnosis, treatment, or other management decisions. Virus, bacteria, and parasite nucleic acid may persist in vivo independently of organism viability. Additionally, some organisms may be carried asymptomatically. Detection of organism targets does not imply that the corresponding organisms are infectious or are the causative agents for clinical symptoms. There is a risk of false negative values due to the presence of sequence variants in the gene targets of the assay, amplification inhibitors in specimens, or inadequate numbers of organisms for amplification. The identification of several diarrheagenic E. coli pathotypes has historically relied upon phenotypic characteristics. This panel targets genetic determinants characteristic of most pathogenic strains, but may not detect all strains having phenotypic characteristics of a pathotype. The performance of this test has not been established for monitoring treatment of infection with any of the panel organisms. This assay is performed by Multiplexed PCR, utilizing the [employer] Bill Array. Leukocytes Stool Qualitative Reviewed date:09/01/2025 02:56:55 PM Interpretation: Performing Lab:[facility], [address] [place] [id number] Notes/Report: Leukocytes Stool Qualitative NEGATIVE NEGATIVE Reason For Referral No Information Medications Medication SIG (Take, Route, Frequency, Duration) Notes Start Date End Date Status Sildenafil Citrate 100 MG Oral; Duration: 30 Active Folic Acid 1 MG Oral; Duration: 90 Active Finasteride 5 MG TAKE 1 TABLET BY SOBIA TH DAILY Oral; Duration: 90 Active Multivitamin Not-Rosalio ing Omeprazole 20 MG 1 capsule 1/2 to 1 h our before morning meal Orally daily; Duration: 90 days 08/28/2025 Active Immunizations Vaccine Route Administration Date Status Comme nts Influenza Unknown 09/12/2020 Administered Influenza Unknown 10/02/2023 Administered Influenza Unknown 08/28/2024 Administered Social History Tobacco Use: Social History [...] Problem History of polyp of colon (situation) (187354100) Personal history of colonic polyps (Z86.010) Active confirmed Problem Weight loss (069705984) Weight loss (R63.4) Active confirmed Problem Smith's esophagus (787390732) 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) Active confirmed Problem Dysphagia (96234274) Dysphagia (R13.10) Active confirmed Problem Family History of Cancer of Colon (Situation) (113747963) Family history of colon cancer (Z80.0) Active confirmed Problem Altered bowel function (96998682) Change in bowel movement (R19.8) Active confirmed Vital Signs Temperature 98.4 degrees Fahrenheit 08/28/2025 Blood pressure diastolic 01 mm Hg 08/28/2025 Height 75 in 08/28/2025 Blood pressure systolic 001 mm Hg 08/28/2025 Weight 159.2 lbs 08/28/2025 BMI 19.9 kg/m2 08/28/2025 Encounters Encounter Location Date Provider Diagnosis [facility] [address] [place] [phone] 11/06/2024 Rene Abreu Jr Smith's esophagus without dysplasia K22.70 and Family history of colon cancer Z80.0 [facility] [address] [address] 08/28/2025 Rene Abreu Jr Dysphagia R13.10 ; Diarrhea R19.7 and Weight loss R63.4 [facility] [address] [place] [phone] 08/28/2025 Rene Abreu Jr Assessments Encounter Date Diagnosis [...] be in 2 years for repeat endoscopy. 08/28/2025 Diarrhea (ICD-10 - R19.7) We discussed his symptoms today. We reviewed his endoscopy and colonoscopy findings from 14 months ago. We did not recommend repeating these at this time. He will have further evaluation with a barium swallow with a tablet because of his dysphagia. Stool specimens will also be obtained because of his change in bowel habits and pancreatic function will be checked with fecal fat and elastase measurements. We discussed this today. Follow-up will be pending these results. 08/28/2025 Dysphagia (ICD-10 - R13.10) We discussed his symptoms today. We reviewed his endoscopy and colonoscopy findings from 14 months ago. We did not recommend repeating these at this time. He will have further evaluation with a barium swallow with a tablet because of his dysphagia. Stool specimens will also be obtained because of his change in bowel habits and pancreatic function will be checked with fecal fat and elastase measurements. We discussed this today. Follow-up will be pending these results. 08/28/2025 Weight loss (ICD-10 - R63.4) We discussed his symptoms today. We reviewed his endoscopy and colonoscopy findings from 14 months ago. We did not recommend repeating these at this time. He will have further evaluation with a barium swallow with a tablet because of his dysphagia. Stool specimens will also be obtained because of his change in bowel habits and pancreatic function will be checked with fecal fat and elastase measurements. We discussed this today. Follow-up will be pending these results. Plan Of Treatment Pending Test Test Name Order Date STOOL WBC 08/28/2025 OVA & PARASITES (O&P) 08/28/2025 PANCREATIC ELASTASE 08/28/2025 FECAL FAT QUAL 08/28/2025 XR BARIUM SWALLOW-ESOPHAGUS 08/28/2025 TSH REFLEX FREE T4 05/19/2024 Future Test Test Name Order Date COLONOSCOPY 10/21/2020 UPPER GI ENDOSCOPY 05/19/2024 COLONOSCOPY 05/19/2024 Insurance Providers Payer Name Payer Address Payer Phone Subscriber Number Group Number Insured Name Patient Relationship to Insured Coverage Start Date Coverage End Date MEDICARE OF [place] [address] [place] [address] [id number] FLORINDARACHEL Self - patient is the insured [facility] [address] [place], [place] [id number] [phone] [id number] FLORINDA RACHEL Self - patient is the insured Medical (General) History Medical History History ICD Code COPD hyperlipidemia elevated PSA/BPH Colonoscopy 07/05, normal sigmoid biopsie s, five-year followup Smith's esophagus, EGD in 07/05, no dys plasia, two-year followup Neuropathy Alcohol dependence Surgical History Surgery Date(Month/Year)
--- OUTSIDE RECORDS SUMMARY | 2025-09-08 16:26 | XMS_ITS | Encounter Summary ---
Author Organization [facility] Address [address] [place] [address] Phone Care Team Providers Care Bay Stocker Name Role Phone Alisha Maldonado MD Primary Care Provider [phone] Reason for Referral * MRI/CAT Scan - Closed Specialty Diagnoses / Procedures Referred By Gisela bradley Referred To Contact Radiology Diagnoses Abnormal chest x-ray Weight loss Smoker Procedures CT Chest Alisha Maldonado MD Phone: tel: fax: mailto:[email or web address] Referral ID Status Reason Start Date Expiration Date Visits Re quested Visits Authorized [id number] Closed 07/28/2020 07/28/2021 1 1 Encounter Details Date Type Department Care Team (Late st Contact Info) Description 07/28/2020 Ancillary Orders Virtual Department [address] [place] [address] Alisha Maldonado MD [address] [place] [address] Abnormal chest x-ray; Weight loss; Smoker Social [...] disorder documented in this encounter Care Teams Bay Stocker Relationship Specialty Start Date End Date Alisha Maldonado MD [email or web address] PCP - General Family Medicine 07/28/20 documented as of this encounter Additional Source Comments The information contained in this document represents components of the legal health record. It is not the complete legal health record.[facility]
== END 2025-09-08 14:15 | disposition home or self-care (01) ==
LOC: HO.HUSH 13:00
PROVIDERS: Visit Provider Urology
DX: R97.20 Elevated prostate specific antigen [PSA] (principal); N40.1 Benign prostatic hyperplasia with lower urinary tract symptoms; N13.8 Other obstructive and reflux uropathy; N52.9 Male erectile dysfunction, unspecified
CPT/HCPCS: 99213

== ENCOUNTER → 2025-09-08 12:59 | Outpatient (BNVA) | payer MEDICARE, BC, SELFPAY | PROVIDERS: Visit Provider Urology | DX: R97.20 Elevated prostate specific antigen [PSA] (principal); N40.1 Benign prostatic hyperplasia with lower urinary tract symptoms; N13.8 Other obstructive and reflux uropathy; N52.9 Male erectile dysfunction, unspecified | CPT/HCPCS: 51798; 99212 ==

== ENCOUNTER 2025-09-23 07:57 | Outpatient (REF) | payer MEDICARE, BC, SELFPAY ==
--- OUTSIDE RECORDS SUMMARY | 2024-06-17 05:10 | XMS_ITS ---
Author Organization [facility] Address [address] [place] [id number] Care Team Providers Care Field Producer Name Role Phone Alisha Maldonado Primary Care Provider Rene Raphael Jr REASON FOR VISIT weight loss, change in bowels Problems Problem Type SNOMED Code ICD Code Onset Dates Problem Status W/U Status Risk Notes Problem History of polyp of colon (situation) (940178440) Personal history of colonic polyps (Z86.010) Active confirmed Encounters Encounter Location Date Provider Diagnosis [facility] [place] [address] [place] [phone] 06/17/2024 Rene Abreu Jr Weight loss R63.4 Assessments Encounter Date Diagnosis (ICD Code) Assessment Notes Treatment Notes Treatment Clinical Notes Section Notes 06/17/2024 Weight loss (ICD-10 - R63.4) Plan Of Treatment No Information Progress Notes * RACHEL NEELY MDOB: 5 (69 yo M)Acc No.[id number]:06/17/2024 EGD and COL/MAC Patient: Lety RACHEL NGO Provider: Leora Abreu MD :1955 A ge:68 Y S ex:Male Date:06/17/2024 Address:[address] [place], [place] [id number] Pcp:Alisha Maldonado Subjective: * Chief Complaints: * 1 . Weight loss, change in bowels. * Medical History: Objective: * Vitals: Assessment: * Assessment: 1. W eight loss - R63.4 (Primary) Plan: * Treatment: * Procedure Codes: G 0105 COLOREC CANCR SCR; COLNSCPY HI RISK, 0529F INTRVL 3+YRS PTS CLNSCP DOCD, 0528F RCMND FLW-UP 10 YRS DOCD, Modifiers: 1P * * The named appointment provid er may or may not be the originator of this progress note, and it is not deemed complete until electronically signed by the appointment provider. Sign off status: Pending * Provider: Leora Abreu MD Date: 0 06/17/2024 Generated for Katerine morse/Lashawn/Teresasmitting on: 1 11/23/2024 08:00 AM EST
--- NOTE | ~2025-09-23 | FL_ITS ---
EXAMINATION: XR BARIUM SWALLOW CLINICAL INFORMATION: Dysphagia to liquids and sometimes solids COMPARISON: None available. TECHNIQUE: Routine barium swallow was performed in upright view with thick barium and barium coated saltine crackers. Thin barium was administered in prone lying position. FINDINGS: Following oral administration of thick barium there is difficulty in initiation of bolus from the oral cavity. However on bolus reaching the posterior oral cavity there was antegrade flow through the pharynx, esophagus into stomach . There is moderate retention of barium in the valleculae and piriform sinuses which cleared with cleared with subsequent dry swallowing. There is no esophageal constriction or narrowing seen however there is diffuse mucosal abnormality which has cobblestone appearance and linear mucosal thickening suspicious of opportunistic like infection such as candidiasis is or other viral inflammation. An oral administration of solid food there is normal oral mastication with slow propagation of bolus from the oral cavity through the pharynx into the midesophagus and slowly into the distal esophagus and stomach. There is moderate holdup of solid food in the upper to mid esophagus secondary to decreased peristalsis and mucosal irregularity. The food cleared with following oral administration of thin barium. On placing patient prone lying and oral administration of thin barium patient had persistent difficulty in initiation of oral swallow. Rest of the barium swallow is unremarkable. No laryngeal penetration or aspiration seen however patient did have some coughing during exam. Moderate retention of thin barium was seen in the piriform sinuses and valleculae. FLUOROSCOPY TIME: 4 minutes 34 seconds DOSE AREA PRODUCT: 1371 uGy-m2 (microgray-meter squared) FL/FL barium swallow IMPRESSION: Diffuse mucosal color sonographic appearance of esophagus suspicious for inflammatory process such candiasis or opportunistic/while infection. Recommend endoscopy. Mild retention of barium in the vallecula and piriform sinuses cleared with subsequent swallowing. Electronically signed by: Romain Diana MD 09/23/2025 12:19 PM [facility]
--- OUTSIDE RECORDS SUMMARY | 2025-09-23 08:00 | XMS_ITS | Clinical Summary ---
Author Organization [facility] Address [address] [place] [address] Phone Care Team Providers Care Pressurization Mechanic Name Role Phone Alisha Maldonado MD Primary Care Provider [phone] Medications umeclidinium-vilan teroL (ANORO ELLIPTA) 62.5-25 mcg/actuation [...] on patient's age to complete this topic IPV VACCINES Aged Out No longer eligi ble based on patient's age to complete this topic MENINGOCOCCAL VACCINES (ACWY) Aged Out No longer eligible based on patient's age to complete this topic MENINGOCOCCAL VACCINES (B) Aged Out N o longer eligible based on patient's age to complete this topic Medical Devices Not on file Insurance MEDICARE PART A & B [facility] INDEMNITY MEDICARE PART A & B [facility] INDEMNITY MEDICARE PART A & B [facility] INDEMNITY MEDICARE PART A & B [facility] INDEMNITY MEDICARE PART A & B [facility] OUT [facility] INDEMNITY MEDICARE PART A & B [facility] OUT OF [facility] INDEMNITY MEDICARE PART A & B [facility] [place] OUT OF [facility] INDEMNITY MEDICARE PART A & B [facility] MEDICARE PART A & B [facility] OUT [facility] INDEMNITY Care Teams Pressurization Mechanic Relationship Specialty Start Date End Date Alisha Maldonado MD [email or web address] PCP - General Family Medicine 07/28/20 Additional Source Comments The information contained in this document represents components of the legal health record. It is not the complete legal health record.[facility]
--- OUTSIDE RECORDS SUMMARY | 2025-09-23 08:00 | XMS_ITS | Encounter Summary ---
Author Organization [facility] Address [address] [place] [address] Phone Care Team Providers Care Publications Inspector Name Role Phone Alisha Maldonado MD Primary Care Provider [phone] Reason for Referral * MRI/CAT Scan - Closed Specialty Diagnoses / Procedures Referred By Gisela bradley Referred To Contact Radiology Diagnoses Abnormal chest x-ray Weight loss Smoker Procedures CT Chest Alisha Maldonado MD Phone: tel: fax: mailto:[email or web address] Referral ID Status Reason Start Date Expiration Date Visits Re quested Visits Authorized [id number] Closed 07/28/2020 07/28/2021 1 1 Encounter Details Date Type Department Care Team (Late st Contact Info) Description 07/28/2020 Ancillary Orders Virtual Department 30 [place] [address] Alisha Maldonado MD [address] [place] [address] Abnormal chest x-ray; Weight loss; Smoker Social [...] disorder documented in this encounter Care Teams Publications Inspector Relationship Specialty Start Date End Date Alisha Maldonado MD [email or web address] PCP - General Family Medicine 07/28/20 documented as of this encounter Additional Source Comments The information contained in this document represents components of the legal health record. It is not the complete legal health record.[facility]
--- OUTSIDE RECORDS SUMMARY | 2025-09-23 08:00 | XMS_ITS | Encounter Summary ---
Author Organization [facility] Address [address] [place] [address] Phone Care Team Providers Care Automotive Sales Professional Name Role Phone Alisha Maldonado MD Primary Care Provider [phone] Reason for Referral * MRI/CAT Scan - Closed Specialty Diagnoses / Procedures Referred By Gisela bradley Referred To Contact Radiology Diagnoses Dizziness and giddiness Procedures MRI Brain Heriberto Nur MD Phone: tel: fax: mailto: Referral ID Status Reason Start Date Expiration Date Visits Re quested Visits Authorized [id number] Closed 08/23/2022 08/23/2023 1 1 Encounter Details Date Type Department Care Team (Late st Contact Info) Description 08/23/2022 Transcribe Orders Virtual Department 30 [place] [address] Heriberto Nur MD [address] [place] [phone] [email or web address] Dizziness and giddiness (Primary Dx) [...] giddiness documented in this encounter Care Teams Automotive Sales Professional Relationship Specialty Start Date End Date Alisha Maldonado MD [email or web address] PCP - General Family Medicine 07/28/20 documented as of this encounter Additional Source Comments The information contained in this document represents components of the legal health record. It is not the complete legal health record.[facility]
--- OUTSIDE RECORDS SUMMARY | 2025-09-23 08:00 | XMS_ITS | Encounter Summary ---
Author Organization [facility] Address [address] [address] Phone Care Team Providers Care Weatherization Crew Leader Name Role Phone Alisha Maldonado MD Primary Care Provider [phone] Encounter Details Date Type Department Care Team (Late st Contact Info) Description 07/28/2020 Procedure Pass [facility], Ct Scan - [address] [address] Social History Tobacco Use Types Packs/Day Years [...] on filedocumented in this encounter Care Teams Weatherization Crew Leader Relationship Specialty Start Date End Date Alisha Maldonado MD [email or web address] PCP - General Family Medicine 07/28/20 documented as of this encounter Additional Source Comments The information contained in this document represents components of the legal health record. It is not the complete legal health record.[facility]
--- OUTSIDE RECORDS SUMMARY | 2025-09-23 08:00 | XMS_ITS | Encounter Summary ---
Author Organization [facility] Address [address] [place] [address] Phone Care Team Providers Care Assignment Editor Name Role Phone Alisha Maldonado MD Primary Care Provider [phone] Encounter Details Date Type Department Care Team (Late st Contact Info) Description 08/23/2022 Procedure Pass [facility], [address] [address] Social History Tobacco Use Types Packs/Day Years [...] on filedocumented in this encounter Care Teams Assignment Editor Relationship Specialty Start Date End Date Alisha Maldonado MD [email or web address] PCP - General Family Medicine 07/28/20 documented as of this encounter Additional Source Comments The information contained in this document represents components of the legal health record. It is not the complete legal health record.[facility]
--- OUTSIDE RECORDS SUMMARY | 2025-09-23 08:00 | XMS_ITS | Encounter Summary ---
Author Organization [facility] Address [address] [place] [address] Phone Care Team Providers Care Lan Manager Name Role Phone Alisha Maldonado MD Primary Care Provider [phone] Encounter Details Date Type Department Care Team (Late st Contact Info) Description 09/08/2022 Transcribe Orders Virtual Department 30 [place] [address] Heriberto Nur MD [address] [place] [address] Social History Tobacco Use Types Packs/Day Years [...] on filedocumented in this encounter Care Teams Lan Manager Relationship Specialty Start Date End Date Alisha Maldonado MD PCP - General Family Medicine 07/28/20 documented as of this encounter Additional Source Comments The information contained in this document represents components of the legal health record. It is not the complete legal health record.[facility]
--- OUTSIDE RECORDS SUMMARY | 2025-09-23 08:00 | XMS_ITS | Encounter Summary ---
Author Organization [facility] Address [address] [place] [address] Phone Care Team Providers Care Drapery And Upholstery Estimator Name Role Phone Alisha Maldonado MD Primary Care Provider [phone] Reason for Referral * MRI/CAT Scan - Closed Specialty Diagnoses / Procedures Referred By Gisela bradley Referred To Contact Radiology Diagnoses Solitary pulmonary nodule Procedures CT Chest Alisha Maldonado MD Phone: tel: fax: mailto:[email or web address] Referral ID Status Reason Start Date Expiration Date Visits Re quested Visits Authorized [id number] Closed 07/22/2021 07/22/2022 1 1 Encounter Details Date Type Department Care Team (Late st Contact Info) Description 07/22/2021 Transcribe Orders Virtual Department [address] [place] [address] Alisha Maldonado MD [address] [place] [phone] [email or web address] Solitary pulmonary nodule (Primary Dx) Social History [...] opacity intimately associated with the minor fissure ([id number]) is stable and very likely postinflammatory. Small [...] 2.No other significant changes. Alisha Maldonado MD [facility] [place] Final Result documented in this encounter Visit Diagnoses Diagnosis Solitary pulmonary nodule- Primary Solitary pulmonary nodule documented in this encounter Care Teams Drapery And Upholstery Estimator Relationship Specialty Start Date End Date Alisha Maldonado MD [email or web address] PCP - General Family Medicine 07/28/20 documented as of this encounter Additional Source Comments The information contained in this document represents components of the legal health record. It is not the complete legal health record.[facility]
--- OUTSIDE RECORDS SUMMARY | 2025-09-23 08:00 | XMS_ITS | Encounter Summary ---
Author Organization [facility] Address [address] [place] [address] Phone Care Team Providers Care Hose Operator Name Role Phone Alisha Maldonado MD Primary Care Provider [phone] Reason for Referral * MRI/CAT Scan - Closed Specialty Diagnoses / Procedures Referred By Gisela bradley Referred To Contact Radiology Diagnoses Abnormal CT scan Procedures CT Chest Alisha Maldonado MD Phone: tel: fax: mailto:[email or web address] Referral ID Status Reason Start Date Expiration Date Visits Re quested Visits Authorized [id number] Closed 11/02/2020 11/02/2021 1 1 Encounter Details Date Type Department Care Team (Late st Contact Info) Description 11/02/2020 Transcribe Orders [facility] Department [address] [place] [address] Alisha Maldonado MD [address] [place] [phone] [email or web address] Abnormal CT scan (Primary Dx) Social History [...] 9 months is feltwarranted. Alisha Maldonado MD [facility] [place]ST Final Result documented in this encounter Visit Diagnoses Diagnosis Abnormal CT scan- Primary Other nonspecific (abnormal) findings on radiological and other examinations of body structure Abnormal CT scan Other nonspecific (abnormal) findings on radiological and other examinations of body structure documented in this encounter Care Teams Hose Operator Relationship Specialty Start Date End Date Alisha Maldonado MD [email or web address] PCP - General Family Medicine 07/28/20 documented as of this encounter Additional Source Comments The information contained in this document represents components of the legal health record. It is not the complete legal health record.[facility]
--- OUTSIDE RECORDS SUMMARY | 2025-09-23 08:00 | XMS_ITS | Patient Health Record ---
Author Organization [facility] Address [address] [place] [address] Care Team Providers Care Fittings Finisher Name Role Phone Alisha Maldonado Primary Care Provider Rene Raphael Jr Unavailable Allergies No Known Allergies Results Component Value Reference Range Notes GI PANEL Reviewed date:09/07/2025 08:57:25 AM Interpretation: Performing Lab:[facility], [address] [place] [address] Notes/Report: Campylobacter Not Detected Not Detect. Plesiomonas [...] is performed by Multiplexed PCR, utilizing the Ubimo Array. Leukocytes Stool Qualitative Reviewed date:09/01/2025 02:56:55 PM Interpretation: Performing Lab:[address] [address] Notes/Report: Leukocytes Stool Qualitative NEGATIVE NEGATIVE Pancreatic Elastase-1 Reviewed date:09/16/2025 08:15:40 AM Interpretation: Performing Lab:[address] [address] Notes/Report: Pancreatic Elastase-1 >800 >200 mcg/g E-1 mcg/g feces Interpretation <100 Severe exocrine pancreatic insufficiency 100-200 Mild to moderate exocrine pancreatic insufficiency >200 Normal THIS TEST WAS PERFORMED AT: [facility] [address] [place] [address] KIANNA MITCHELL MD,PHD,INOCENCIO Lipids Total, Feces Reviewed date:09/16/2025 07:55:03 AM Interpretation: Performing Lab:[address] [address] Notes/Report: Fecal Fat - Total Lipid 1.37% FECAL LIPIDS, 24 HR: 0.7 g REFERENCE RANGE: <7.0 g/24 h This test was developed and its analytical performance characteristics have been determined by [facility]. It has not been cleared or approved by the FDA. This assay has been validated pursuant to the CLIA regulations and is used for clinical purposes. Test performed at [facility], [place], [place] Fecal Fat - Alexander Duration 24 Hours Fecal Fat - Total Weight 53 Grams Ova and Parasite Reviewed date:09/14/2025 07:51:58 AM Interpretation: Performing Lab:[facility], [address] [place] [address] Notes/Report: Ova and Parasite SEE NOTE OVA AND PARASITES, CONC AND PERM SMEAR Micro Number: [id number] Test Status: Final Specimen Source: Stool Specimen Quality: Adequate CONCENTRATION 1: No ova or parasites seen TRICHROME 1: No ova or parasites seen Routine Ova and Parasite exam may not detect some parasites that occasionally cause diarrheal illness. Cryptosporidium Antigen and/or Cyclospora and Isospora Exam may be ordered to detect these parasites. One negative sample does not necessarily rule out the presence of a parasitic infection. 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) Active confirmed Problem Dysphagia (40758700) Dysphagia (R13.10) Active confirmed Problem Family History of Cancer of Colon (Situation) (619437547) Family history of colon cancer (Z80.0) Active confirmed Problem Altered bowel function (45331231) Change in bowel movement (R19.8) Active confirmed Vital Signs Temperature 98.4 degrees Fahrenheit 08/28/2025 Blood pressure diastolic 01 mm Hg 08/28/2025 Height 75 in 08/28/2025 Blood pressure systolic 001 mm Hg 08/28/2025 Weight 159.2 lbs 08/28/2025 BMI 19.9 kg/m2 08/28/2025 Encounters Encounter Location Date Provider Diagnosis [facility] [address] [place] [address] 11/06/2024 Rene Abreu Jr Smith's esophagus without dysplasia K22.70 and Family history of colon cancer Z80.0 [facility] [address] [place] [phone] 08/28/2025 Rene Abreu Jr Dysphagia R13.10 ; Diarrhea R19.7 and Weight loss R63.4 [facility] [address] [place] [phone] 08/28/2025 Rene Abreu Jr [facility] [address] [place] [phone] 09/16/2025 Rene Abreu Jr Assessments Encounter Date Diagnosis [...] MEDICARE OF [place] [address] [place] [address] [id number] RACHEL NEELY Self - patient is the insured [facility] [address] [place], [place] [id number] RACHEL NEELY Self - patient is the insured Medical (General) History Medical History History ICD Code COPD hyperlipidemia elevated PSA/BPH Colonoscopy 07/05, normal sigmoid biopsie s, five-year followup Smith's esophagus, EGD in 07/05, no dys plasia, two-year followup Neuropathy Alcohol dependence Surgical History Surgery Date(Month/Year)
--- OUTSIDE RECORDS SUMMARY | 2025-09-23 08:00 | XMS_ITS | Encounter Summary ---
Author Organization [facility] Address [address] [place] [address] Phone Care Team Providers Care Tobacco Sampler Name Role Phone Alisha Maldonado MD Primary Care Provider Encounter Details Date Type Department Care Team (Late st Contact Info) Description 07/28/2020 Ancillary Orders [facility],Outside Imaging [address] [place] [address] System, Provider Not In, [facility] [address] [address] Social History Tobacco Use Types Packs/Day Years [...] on filedocumented in this encounter Care Teams Tobacco Sampler Relationship Specialty Start Date End Date Alisha Maldonado MD [email or web address] PCP - General Family Medicine 07/28/20 documented as of this encounter Additional Source Comments The information contained in this document represents components of the legal health record. It is not the complete legal health record.[facility]
--- OUTSIDE RECORDS SUMMARY | 2025-09-23 08:00 | XMS_ITS | Encounter Summary ---
Author Organization [facility] Address [address] [address] Phone Care Team Providers Care Silk Screen Painter Name Role Phone Alisha Maldonado MD Primary Care Provider [phone] Encounter Details Date Type Department Care Team (Late st Contact Info) Description 07/22/2021 Procedure Pass [facility], Ct Scan - [address] [address] Social History Tobacco Use Types Packs/Day Years [...] on filedocumented in this encounter Care Teams Silk Screen Painter Relationship Specialty Start Date End Date Alisha Maldonado MD [email or web address] PCP - General Family Medicine 07/28/20 documented as of this encounter Additional Source Comments The information contained in this document represents components of the legal health record. It is not the complete legal health record.[facility]
--- OUTSIDE RECORDS SUMMARY | 2025-09-23 08:00 | XMS_ITS | Encounter Summary ---
Author Organization [facility] Address [address] [address] Phone Care Team Providers Care Registered Radiologic Technologist Name Role Phone Alisha Maldonado MD Primary Care Provider [phone] Encounter Details Date Type Department Care Team (Late st Contact Info) Description 11/02/2020 Procedure Pass [facility], Ct Scan - [address] [address] Social History Tobacco Use Types Packs/Day Years [...] on filedocumented in this encounter Care Teams Registered Radiologic Technologist Relationship Specialty Start Date End Date Alisha Maldonado MD [email or web address] PCP - General Family Medicine 07/28/20 documented as of this encounter Additional Source Comments The information contained in this document represents components of the legal health record. It is not the complete legal health record.[facility]
== END 2025-09-23 07:58 | disposition home or self-care (01) ==
LOC: HO.XRAY 07:57
PROVIDERS: Visit Provider Internal Medicine Gastroenterology
DX: R13.10 Dysphagia, unspecified (principal); R19.7 Diarrhea, unspecified
CPT/HCPCS: 74220

== ENCOUNTER → 2025-09-23 07:59 | Outpatient (BNV) | payer MEDICARE, BC, SELFPAY | PROVIDERS: Visit Provider Radiology Diagnostic Radiology | DX: R13.10 Dysphagia, unspecified (principal) | CPT/HCPCS: 74221 ==

== ENCOUNTER 2025-10-20 07:36 | Day surgery (SDC) | payer MEDICARE, BC, SELFPAY ==
--- OUTSIDE RECORDS SUMMARY | 2024-06-17 05:10 | XMS_ITS ---
Author Organization [facility] Address [address] [place] [id number] Care Team Providers Care Boat Pilot Name Role Phone Alisha Maldonado Primary Care Provider Rene Raphael Jr REASON FOR VISIT weight loss, change in bowels Problems Problem Type SNOMED Code ICD Code Onset Dates Problem Status W/U Status Risk Notes Problem History of polyp of colon (situation) (347047205) Personal history of colonic polyps (Z86.010) Active confirmed Encounters Encounter Location Date Provider Diagnosis [facility] [place] [facility] [address] [place] [phone] 06/17/2024 Rene Abreu Jr Weight loss R63.4 Assessments Encounter Date Diagnosis (ICD Code) Assessment Notes Treatment Notes Treatment Clinical Notes Section Notes 06/17/2024 Weight loss (ICD-10 - R63.4) Plan Of Treatment Next Appt Details Provider Name:Rene edward Jr, 10/20/2025 10:10:00 AM, [address] [place] [address], [phone], Progress Notes * RACHEL NEELY MDOB: 5 (69 yo M)Acc No.[id number]:06/17/2024 EGD and COL/MAC Patient: RACHEL SR Provider: Leora Abreu MD :1955 A ge:68 Y S ex:Male Date:06/17/2024 Address:[address] , [place], [id number] Pcp:Alisha Maldonado Subjective: * Chief Complaints: * W eight loss, change in bowels Assessment: * Assessment: 1. W eight loss - R63.4 (Primary) Plan: * Procedure Codes: G 0105 COLOREC CANCR SCR; COLNSCPY HI [id number] INTRVL 3+YRS PTS CLNSCP [id number] RCMND FLW-UP 10 YRS DOCD, Modifiers: 1P Billing Information: * Procedure Codes: G0105 COLOREC CANCR SCR; COLNSCPY HI RISK. 0529F INTRVL 3+YRS PTS CLNSCP DOCD. 0528F RCMND FLW-UP 10 YRS DOCD. Modifiers: 1P * The named appointment provid er may or may not be the originator of this progress note, and it is not deemed complete until electronically signed by the appointment provider. Sign off status: Pending * Provider: Leora Abreu MD Date: 0 06/17/2024 Generated for Katerine morse/Lashawn/Fadi on: 12/02/2024 08:02 AM EST
--- OUTSIDE RECORDS SUMMARY | 2025-10-02 08:02 | XMS_ITS | Encounter Summary ---
Author Organization [facility] Address [address] [place] [address] Phone Care Team Providers Care Manufacturing Sales Representative Name Role Phone Alisha Maldonado MD Primary Care Provider [phone] Encounter Details Date Type Department Care Team (Late st Contact Info) Description 08/23/2022 Procedure Pass [facility], [address] [address] Social History Tobacco Use Types Packs/Day Years [...] on filedocumented in this encounter Care Teams Manufacturing Sales Representative Relationship Specialty Start Date End Date Alisha Maldonado MD [email or web address] PCP - General Family Medicine 07/28/20 documented as of this encounter Additional Source Comments The information contained in this document represents components of the legal health record. It is not the complete legal health record.[facility]
--- OUTSIDE RECORDS SUMMARY | 2025-10-02 08:02 | XMS_ITS | Patient Health Record ---
Author Organization [facility] Address [address] [place] [address] Care Team Providers Care Rf Engineer Name Role Phone Alisha Maldonado Primary Care Provider Rene Raphael Jr Unavailable Allergies No Known Allergies Results Component Value Reference Range Notes GI PANEL Reviewed date:09/07/2025 08:57:25 AM Interpretation: Performing Lab:[facility], [address] [place] [address] Notes/Report: Campylobacter Not Detected Not Detect. Plesiomonas [...] is performed by Multiplexed PCR, utilizing the Arstasis Array. Leukocytes Stool Qualitative Reviewed date:09/01/2025 02:56:55 PM Interpretation: Performing Lab:[address] [address] Notes/Report: Leukocytes Stool Qualitative NEGATIVE NEGATIVE Pancreatic Elastase-1 Reviewed date:09/16/2025 08:15:40 AM Interpretation: Performing Lab:[address] [address] Notes/Report: Pancreatic Elastase-1 >800 >200 mcg/g E-1 mcg/g feces Interpretation <100 Severe exocrine pancreatic insufficiency 100-200 Mild to moderate exocrine pancreatic insufficiency >200 Normal THIS TEST WAS PERFORMED AT: [facility] [address] [place] [address] KIANNA MITCHELL MD,PHD,INOCENCIO Lipids Total, Feces Reviewed date:09/16/2025 07:55:03 AM Interpretation: Performing Lab:[address] [address] Notes/Report: Fecal Fat - Total Lipid 1.37% FECAL LIPIDS, 24 HR: 0.7 g REFERENCE RANGE: <7.0 g/24 h This test was developed and its analytical performance characteristics have been determined by [facility]. It has not been cleared or approved by the FDA. This assay has been validated pursuant to the CLIA regulations and is used for clinical purposes. Test performed at [facility], [place], [place] Fecal Fat - Alexander Duration 24 Hours Fecal Fat - Total Weight 53 Grams Ova and Parasite Reviewed date:09/14/2025 07:51:58 AM Interpretation: Performing Lab:[facility], [address] [place] [address] Notes/Report: Ova and Parasite SEE NOTE OVA AND PARASITES, CONC AND PERM SMEAR Micro Number: [id number] Test Status: Final Specimen Source: Stool Specimen [...] infection. For additional information, please refer to [email or web address]/WPY870 (This link is being provided for informational/ educational purposes only.) THIS TEST WAS PERFORMED AT: [facility] [address] [address] RAFIQ CASTILLO MD FL barium swallow Reviewed date:10/01/2025 01:18:45 PM Interpretation: Performing Lab: Notes/Report: [address] [address] Fluoroscopy Report Signed Patient: Rachel Astorga MR#: [id number] : 1955 Acct:[id number] Age/Sex: 69 / M ADM Date: 09/23/25 Loc: [facility] Attending Dr: Rene Abreu MD Ordering Physician: Rene Abreu MD Date of Service: 09/23/25 Procedure(s): FL barium swallow Accession Number(s): [id number] cc: Rene Abreu MD; Christiano Jose Reason for Exam: DYSPHAGIA EXAMINATION: XR BARIUM SWALLOW CLINICAL INFORMATION: Dysphagia to liquids and sometimes solids COMPARISON: None available. TECHNIQUE: Routine barium swallow was performed in upright view with thick barium and barium coated saltine crackers. Thin barium was administered in prone lying position. FINDINGS: Following oral administration of thick barium there is difficulty in initiation of bolus from the oral cavity. However on bolus reaching the posterior oral cavity there was antegrade flow through the pharynx, esophagus into stomach . There is moderate retention of barium in the valleculae and piriform sinuses which cleared with cleared with subsequent dry swallowing. There is no esophageal constriction or narrowing seen however there is diffuse mucosal abnormality which has cobblestone appearance and linear mucosal thickening suspicious of opportunistic like infection such as candidiasis is or other viral inflammation. An oral administration of solid food there is normal oral mastication with slow propagation of bolus from the oral cavity through the pharynx into the midesophagus and slowly into the distal esophagus and stomach. There is moderate holdup of solid food in the upper to mid esophagus secondary to decreased peristalsis and mucosal irregularity. The food cleared with following oral administration of thin barium. On placing patient prone lying and oral administration of thin barium patient had persistent difficulty in initiation of oral swallow. Rest of the barium swallow is unremarkable. No laryngeal penetration or aspiration seen however patient did have some coughing during exam. Moderate retention of thin barium was seen in the piriform sinuses and valleculae. FLUOROSCOPY TIME: 4 minutes 34 seconds DOSE AREA PRODUCT: 1371 uGy-m2 (microgray-meter squared) FL/FL barium swallow IMPRESSION: Diffuse mucosal color sonographic appearance of esophagus suspicious for inflammatory process such candiasis or opportunistic/while infection. Recommend endoscopy. Mild retention of barium in the vallecula and piriform sinuses cleared with subsequent swallowing. Electronically signed by: Romain Diana MD 09/23/2025 12:19 PM [facility] Dictated By: Romain Diana MD Signed By: <Electronically signed by Romain Diana MD in OV> 09/23/25 1219 DD/ 08 TD/TT: 09/23/25 0828 [place] Operator: [facility] Reason For Referral No Information Medications Medication SIG (Take, Route, Frequency, Duration) Notes Start Date End Date Status Sildenafil Citrate 100 MG Tablet Oral; Duration: 30 Active Folic Acid 1 MG Tablet Oral; Duration: 90 Active Finasteride 5 MG Tablet TAKE 1 TABLET BY MOUTH DAILY Oral; Duration: 90 Active Multivitamin Not-Rosalio ing/PRN Omeprazole 20 MG Capsule Delayed Release 1 capsule 1/2 to 1 hour before morning meal Orally daily; Duration: 90 days 08/28/2025 Active Immunizations Vaccine Route Administration Date Status Comme nts Influenza Unknown 09/12/2020 Administered Influenza Unknown 10/02/2023 Administered Influenza Unknown 08/28/2024 Administered Social History Tobacco Use: Social History Observation Description Date Details (start date - stop date) Current Smoker NA - NA Social History Drugs/Alcohol: Social Info Question Answer Notes Alcohol Screen Did you have a drink containing alcohol in the past year? Yes How often did you have a drink containing alcohol in the past year? 4 [...] daily (4 points) Points 10 Interpretation Positive Tobacco Use: Social Info Question Answer Notes Tobacco Use/Smoking Patient is a current smoker How often do you smoke cigarettes? every day How many cigarettes a day do you smoke? 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 cigar smoker about 3 a day . cigar smoker about 3 a day . cigar smoker about 3 a day . 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) Active confirmed Problem Dysphagia (93344833) Dysphagia (R13.10) Active confirmed Problem Family History of Cancer of Colon (Situation) (547870269) Family history of colon cancer (Z80.0) Active confirmed Problem Altered bowel function (95725233) Change in bowel movement (R19.8) Active confirmed Vital Signs Temperature 98.4 degrees Fahrenheit 08/28/2025 Blood pressure diastolic 01 mm Hg 08/28/2025 Height 75 in 08/28/2025 Blood pressure systolic 001 mm Hg 08/28/2025 Weight 159.2 lbs 08/28/2025 BMI 19.9 kg/m2 08/28/2025 Encounters Encounter Location Date Provider Diagnosis [facility] [address] [place] [phone] 11/06/2024 Rene Abreu Jr Smith's esophagus without dysplasia K22.70 and Family history of colon cancer Z80.0 [facility] [address] [place] [phone] 08/28/2025 Rene Abreu Jr Dysphagia R13.10 ; Diarrhea R19.7 and Weight loss R63.4 [facility] [address] [place] [phone] 08/28/2025 Rene Abreu Jr [facility] [address] [place] [phone] 09/16/2025 Rene Abreu Jr [facility] [address] [place] [phone] 10/01/2025 Rene Abreu Jr Assessments Encounter Date Diagnosis [...] 10/21/2020 UPPER GI ENDOSCOPY 05/19/2024 COLONOSCOPY 05/19/2024 Next Appt Details Provider Name:Rene edward Jr, 10/20/2025 10:10:00 AM, [address] [place] [address] , [place], [place], [id number], Insurance Providers Payer Name Payer Address Payer Phone Subscriber Number Group Number Insured Name Patient Relationship to Insured Coverage Start Date Coverage End Date MEDICARE OF [place] [address] [place] [address] [id number] RACHEL ASTORGA Self - patient is the insured [facility] [address] [place], [place] [id number] RACHEL ASTORGA Self - patient is the insured Medical (General) History Medical History History ICD Code COPD hyperlipidemia elevated PSA/BPH Colonoscopy 07/05, normal sigmoid biopsie s, five-year followup Smith's esophagus, EGD in 07/05, no dys plasia, two-year followup Neuropathy Alcohol dependence Surgical History Surgery Date(Month/Year)
--- OUTSIDE RECORDS SUMMARY | 2025-10-02 08:02 | XMS_ITS | Encounter Summary ---
Author Organization [facility] Address [address] [place] [address] Phone Care Team Providers Care Social Media Intern Name Role Phone Alisha Maldonado MD Primary Care Provider [phone] Reason for Referral * MRI/CAT Scan - Closed Specialty Diagnoses / Procedures Referred By Gisela bradley Referred To Contact Radiology Diagnoses Solitary pulmonary nodule Procedures CT Chest Alisha Maldonado MD Phone: tel: fax: [email or web address] Referral ID Status Reason Start Date Expiration Date Visits Re quested Visits Authorized [id number] Closed 07/22/2021 07/22/2022 1 1 Encounter Details Date Type Department Care Team (Late st Contact Info) Description 07/22/2021 Transcribe Orders Virtual Department [address] [place] [address] Alisha Maldonado MD [address] [place] [address] [email or web address] Solitary pulmonary nodule (Primary Dx) Social History [...] opacity intimately associated with the minor fissure ([id number]) is stable and very likely postinflammatory. Small [...] 2.No other significant changes. Alisha Maldonado MD [facility] CHEST Final Result documented in this encounter Visit Diagnoses Diagnosis Solitary pulmonary nodule- Primary Solitary pulmonary nodule documented in this encounter Care Teams Social Media Intern Relationship Specialty Start Date End Date Alisha Maldonado MD [email or web address] PCP - General Family Medicine 07/28/20 documented as of this encounter Additional Source Comments The information contained in this document represents components of the legal health record. It is not the complete legal health record.[facility]
--- OUTSIDE RECORDS SUMMARY | 2025-10-02 08:02 | XMS_ITS | Encounter Summary ---
Author Organization [facility] Address [address] [place] [address] Phone Care Team Providers Care Security Guard Name Role Phone Alisha Maldonado MD Primary Care Provider [phone] Reason for Referral * MRI/CAT Scan - Closed Specialty Diagnoses / Procedures Referred By Gisela bradley Referred To Contact Radiology Diagnoses Abnormal chest x-ray Weight loss Smoker Procedures CT Chest Alisha Maldonado MD Phone: tel: fax: [email or web address] Referral ID Status Reason Start Date Expiration Date Visits Re quested Visits Authorized [id number] Closed 07/28/2020 07/28/2021 1 1 Encounter Details Date Type Department Care Team (Late st Contact Info) Description 07/28/2020 Ancillary Orders Virtual Department [address] [place] [address] Alisha Maldonado MD [address] [place] [id number] Abnormal chest x-ray; Weight loss; Smoker Social [...] disorder documented in this encounter Care Teams Security Guard Relationship Specialty Start Date End Date Alisha Maldonado MD [email or web address] PCP - General Family Medicine 07/28/20 documented as of this encounter Additional Source Comments The information contained in this document represents components of the legal health record. It is not the complete legal health record.[facility]
--- OUTSIDE RECORDS SUMMARY | 2025-10-02 08:02 | XMS_ITS | Encounter Summary ---
Author Organization [facility] Address [address] [place] [phone] Phone Care Team Providers Care Application Release Manager Name Role Phone Alisha Maldonado MD Primary Care Provider [phone] Encounter Details Date Type Department Care Team (Late st Contact Info) Description 09/08/2022 Transcribe Orders Virtual Department [address] [place] [address] Heriberto Nur MD [address] [place] [phone] [email or web address] Social History Tobacco Use Types Packs/Day Years [...] on filedocumented in this encounter Care Teams Application Release Manager Relationship Specialty Start Date End Date Alisha Maldonado MD [email or web address] PCP - General Family Medicine 07/28/20 documented as of this encounter Additional Source Comments The information contained in this document represents components of the legal health record. It is not the complete legal health record.[facility]
--- OUTSIDE RECORDS SUMMARY | 2025-10-02 08:02 | XMS_ITS | Encounter Summary ---
Author Organization [facility] Address [address] [place] [address] Phone Care Team Providers Care Cuff Turner Machine Operator Name Role Phone Alisha Maldonado MD Primary Care Provider [phone] Encounter Details Date Type Department Care Team (Late st Contact Info) Description 07/22/2021 Procedure Pass [facility], Ct Scan - [address] [address] Social History Tobacco Use Types Packs/Day Years [...] on filedocumented in this encounter Care Teams Cuff Turner Machine Operator Relationship Specialty Start Date End Date Alisha Maldonado MD [email or web address] PCP - General Family Medicine 07/28/20 documented as of this encounter Additional Source Comments The information contained in this document represents components of the legal health record. It is not the complete legal health record.[facility]
--- OUTSIDE RECORDS SUMMARY | 2025-10-02 08:02 | XMS_ITS | Clinical Summary ---
Author Organization [facility] Address [address] [place] [address] Phone Care Team Providers Care Medical Receptionist Medical Assistant Name Role Phone Alisha Maldonado MD Primary Care Provider [phone] Medications umeclidinium-vilan teroL (ANORO ELLIPTA) 62.5-25 mcg/actuation [...] file Insurance MEDICARE PART A & B [facility] MEDICARE PART A & B [facility] IN[facility] MEDICARE PART A & B [facility] INDEMNITY MEDICARE PART A & B [employer] OUT OF STATE INDEMNITY MEDICARE PART A & B [facility] IN[facility] MEDICARE PART A & B [facility] MEDICARE PART A & B [facility] MEDICARE PART A & B [facility] MEDICARE PART A & B [facility] IN[facility]MN[facility] Care Teams Medical Receptionist Medical Assistant Relationship Specialty Start Date End Date Alisha Maldonado MD [email or web address] PCP - General Family Medicine 07/28/20 Additional Source Comments The information contained in this document represents components of the legal health record. It is not the complete legal health record.[facility]
--- OUTSIDE RECORDS SUMMARY | 2025-10-02 08:02 | XMS_ITS | Encounter Summary ---
Author Organization [facility] Address [address] [address] Phone Care Team Providers Care Refinery Operator Assistant Name Role Phone Alisha Maldonado MD Primary Care Provider [phone] Encounter Details Date Type Department Care Team (Late st Contact Info) Description 11/02/2020 Procedure Pass [facility], Ct Scan - [address] [address] Social History Tobacco Use Types Packs/Day Years [...] on filedocumented in this encounter Care Teams Refinery Operator Assistant Relationship Specialty Start Date End Date Alisha Maldonado MD [email or web address] PCP - General Family Medicine 07/28/20 documented as of this encounter Additional Source Comments The information contained in this document represents components of the legal health record. It is not the complete legal health record.[facility]
--- OUTSIDE RECORDS SUMMARY | 2025-10-02 08:02 | XMS_ITS | Encounter Summary ---
Author Organization [facility] Address [address] [place] [address] Phone Care Team Providers Care Inspector Casing Name Role Phone Alisha Maldonado MD Primary Care Provider [phone] Reason for Referral * MRI/CAT Scan - Closed Specialty Diagnoses / Procedures Referred By Gisela bradley Referred To Contact Radiology Diagnoses Dizziness and giddiness Procedures MRI Brain Heriberto Nur MD Phone: tel: fax: mailto: Referral ID Status Reason Start Date Expiration Date Visits Re quested Visits Authorized [id number] Closed 08/23/2022 08/23/2023 1 1 Encounter Details Date Type Department Care Team (Late st Contact Info) Description 08/23/2022 Transcribe Orders Virtual Department 30 [place] [address] Heriberto Nur MD [address] [place] [phone] [email or web address] Dizziness and giddiness (Primary Dx) Social History [...] giddiness documented in this encounter Care Teams Inspector Casing Relationship Specialty Start Date End Date Alisha Maldonado MD [email or web address] PCP - General Family Medicine 07/28/20 documented as of this encounter Additional Source Comments The information contained in this document represents components of the legal health record. It is not the complete legal health record.[facility]
--- OUTSIDE RECORDS SUMMARY | 2025-10-02 08:02 | XMS_ITS | Encounter Summary ---
Author Organization [facility] Address [address] [place] [address] Phone Care Team Providers Care Optical Lens Manufacturing Tech Name Role Phone Alisha Maldonado MD Primary Care Provider [phone] Encounter Details Date Type Department Care Team (Late st Contact Info) Description 07/28/2020 Ancillary Orders [facility],Outside Imaging [address] [place] [address] System, Provider Not In, [facility] [address] [address] Social History Tobacco Use Types Packs/Day Years [...] on filedocumented in this encounter Care Teams Optical Lens Manufacturing Tech Relationship Specialty Start Date End Date Alisha Maldonado MD [email or web address] PCP - General Family Medicine 07/28/20 documented as of this encounter Additional Source Comments The information contained in this document represents components of the legal health record. It is not the complete legal health record.[facility]
--- OUTSIDE RECORDS SUMMARY | 2025-10-02 08:02 | XMS_ITS | Encounter Summary ---
Author Organization [facility] Address [address] [place] [address] Phone Care Team Providers Care Enterprise Solutions Architect Name Role Phone Alisha Maldonado MD Primary Care Provider [phone] Reason for Referral * MRI/CAT Scan - Closed Specialty Diagnoses / Procedures Referred By Gisela bradley Referred To Contact Radiology Diagnoses Abnormal CT scan Procedures CT Chest Alisha Maldonado MD Phone: tel: fax: mailto:[email or web address] Referral ID Status Reason Start Date Expiration Date Visits Re quested Visits Authorized [id number] Closed 11/02/2020 11/02/2021 1 1 Encounter Details Date Type Department Care Team (Late st Contact Info) Description 11/02/2020 Transcribe Orders [facility] Department [address] [place] [phone] Alisha Maldonado MD [address] [place] [phone] [email or web address] Abnormal CT scan (Primary Dx) Social History [...] 9 months is feltwarranted. Alisha Maldonado MD [facility] CT CHEST Final Result documented in this encounter Visit Diagnoses Diagnosis Abnormal CT scan- Primary Other nonspecific (abnormal) findings on radiological and other examinations of body structure Abnormal CT scan Other nonspecific (abnormal) findings on radiological and other examinations of body structure documented in this encounter Care Teams Enterprise Solutions Architect Relationship Specialty Start Date End Date Alisha Maldonado MD PCP - General Family Medicine 07/28/20 documented as of this encounter Additional Source Comments The information contained in this document represents components of the legal health record. It is not the complete legal health record.[facility]
--- OUTSIDE RECORDS SUMMARY | 2025-10-02 08:02 | XMS_ITS | Encounter Summary ---
Author Organization [facility] Address [address] [address] Phone Care Team Providers Care Medical Translator Name Role Phone Alisha Maldonado MD Primary Care Provider Encounter Details Date Type Department Care Team (Late st Contact Info) Description 07/28/2020 Procedure Pass [facility], Ct Scan - [address] [address] Social History Tobacco Use Types Packs/Day Years [...] on filedocumented in this encounter Care Teams Medical Translator Relationship Specialty Start Date End Date Alisha Maldonado MD [email or web address] PCP - General Family Medicine 07/28/20 documented as of this encounter Additional Source Comments The information contained in this document represents components of the legal health record. It is not the complete legal health record.[facility]
[2025-10-16 09:42] VITALS: BMI 19.9
[2025-10-20 07:49] VITALS: BMI 19.6
[2025-10-20 07:51] VITALS: BP 142/85; PULSE 80; RESP 16; TEMP 36.4; O2SAT 98
[2025-10-20] MEDS: Lactated Ringers 1,000 ML 100 ML IVCONT (08:03)
--- NOTE | 2025-10-20 08:20 | HO.ANESPROP2 ---
Documented by User: Erinn Roberts NP 10/16/25 13:42 HPI - Anesthesia Eval Consult details Narrative: 69 yr old male for upper endoscopy Daily ETOH Daily cigars x 4 PMFSH Active Problems Active Problems: All Active Problems (Updated 10/16/25 @ 09:39 by Luisa Menjivar RN) Erectile dysfunction (Acute) Chondrocalcinosis of left knee (Acute) Weakness of left foot (Acute) Numbness in feet (Acute) Pseudogout of left knee (Acute) Cellulitis of left ankle (Acute) BPH w urinary obs/LUTS (Acute) Elevated PSA (Acute) Past Medical History Medical History Alcohol dependence Neuropathy Barretts esophagus Hyperlipidemia Elevated cholesterol BPH (benign prostatic hyperplasia) COPD (chronic obstructive pulmonary disease) Daily consumption of alcohol Smoker Family History Family history of problems with anesthesia: No Surgical History Surgical History History of esophagogastroduodenoscopy (EGD) Hx of prostate biopsy Hx of colonoscopy History of Problems with Anesthesia: No Social History Social History Household Members: Spouse Alcohol intake: current Alcohol intake frequency: 3 or more drinks per day Alcohol type: beer Patient Tobacco Use Status: Current someday Tobacco user Tobacco use type: Cigar Years Smoked: 50 Use of substances other than those prescribed or required for medical reasons: Yes Substance Use Type: Marijuana Substance Use Type Other:: occasionally Are you DNR?: No Advance Directives: No Advance Directives Information Provided: Yes Current occupational status: employed 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, 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, 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 Allergies Allergy/AdvReac Type Severity Reaction Status Date / Time No Known Allergies Allergy Verified 09/08/25 13:03 Home Medications ?Medication ?Instructions ?Recorded ?Confirmed ?Last Taken ?Type multivitamin 1 tab PO DAILY 11/15/20 10/16/25 Unknown History folic acid 1 mg tablet 1 mg PO DAILY 10/16/25 10/16/25 Unknown History Exam Height,Weight and Vital Signs: Height 6 ft 3 in Weight 72.212 kg Assessment and Plan Final Anesthetic Review Family History of Problems with Anesthesia: No History of Problems with Anesthesia: No Documented by User: Carol Guillaume DO 10/20/25 08:23 HPI - Anesthesia Eval Consult details Narrative: 69 yr old male for upper endoscopy Daily ETOH Daily cigars x 4 PMFSH Past Medical History Medical History Alcohol dependence Neuropathy Barretts esophagus Hyperlipidemia Elevated cholesterol BPH (benign prostatic hyperplasia) COPD (chronic obstructive pulmonary disease) Daily consumption of alcohol Smoker Family History Family history of problems with anesthesia: No Surgical History Surgical History History of esophagogastroduodenoscopy (EGD) Hx of prostate biopsy Hx of colonoscopy History of Problems with Anesthesia: No Social History Social History Household Members: Spouse Alcohol intake: current Alcohol intake frequency: 3 or more drinks per day Alcohol type: beer Patient Tobacco Use Status: Current someday Tobacco user Tobacco use type: Cigar Years Smoked: 50 Use of substances other than those prescribed or required for medical reasons: Yes Substance Use Type: Marijuana Substance Use Type Other:: occasionally Are you DNR?: No Advance Directives: No Advance Directives Information Provided: Yes Current occupational status: employed 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, 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, 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 Allergies Allergy/AdvReac Type Severity Reaction Status Date / Time No Known Allergies Allergy Verified 09/08/25 13:03 Home Medications ?Medication ?Instructions ?Recorded ?Confirmed ?Last Taken ?Type multivitamin 1 tab PO DAILY 11/15/20 10/16/25 Unknown History folic acid 1 mg tablet 1 mg PO DAILY 10/16/25 10/16/25 Unknown History Exam Exam Date and Time: 10/20/25 0820 Height,Weight and Vital Signs: Height 6 ft 3 in Weight 72.212 kg Height 6 ft 3 in Weight 71.1 kg Vital Signs Temperature 97.6 F 10/20/25 07:51 Pulse Rate 80 10/20/25 07:51 Respiratory Rate 16 10/20/25 07:51 Blood Pressure 142/85 H 10/20/25 07:51 Pulse Oximetry 98 10/20/25 07:51 Oxygen Delivery Method Room Air 10/20/25 07:51 Temperature 97.6 F 10/20/25 07:51 Pulse Rate 80 10/20/25 07:51 Respiratory Rate 16 10/20/25 07:51 Blood Pressure 142/85 H 10/20/25 07:51 Pulse Oximetry 98 10/20/25 07:51 Oxygen Delivery Method Room Air 10/20/25 07:51 Airway Mallampati Class: II TM Dist: >3cm Neck ROM: Full Loose/Missing/Broken Teeth: No (patient denies any loose or broken teeth) Heart: S1S2 Lungs: CTAB Assessment and Plan Assessment Anesthesia Assessment: Anesthesia Plan Discussed and Chart Reviewed Final Anesthetic Review Family History of Problems with Anesthesia: No History of Problems with Anesthesia: No NPO: Yes ASA Class: III Final Preanesthetic Review: No Changes in Pt Med Stat, Meds/Allgs Chart Reviewed, Consent Obtained/Reviewed and Anes Risks/Benef Reviewed Patient Risk: Intermediate Procedure Risk: Low Anesthetic Plan Anesthetic Plan: MAC: and Agree w/ Assess. and Plan Disposition: Standard PACU
--- NOTE | 2025-10-20 08:26 | P.HPSUR_ITS ---
Pre-Procedural Eval Section A - 24 Hr Update-Section A only Date of Service: 10/20/25 Section B - Complete if H&P > 30 days Chief Complaint: Abnormal findings on diagnostic imaging of other Details of Present Illness: see H&P no chnages Relevant Family History (Specify if Yes): No Relevant Social History: None Present Medications: see Short Stay Collaborative assessment Medical History: No relevant PMH History of Previous Operations: No relevant previous surgery Allergies: Allergies Allergy/AdvReac Type Severity Reaction Status Date / Time No Known Allergies Allergy Verified 09/08/25 13:03 Review of Systems Sugical H&P ROS: Negative: Constitution, Cardiovascular, Respiratory, Neurological, Psychiatric, Hem-Onc, Allergic/Immunologic, Gastrointestinal, Genitourinary, Musculoskeletal, Integumentary, Endocrine and Eyes/Ears/Nos e/Throat Exam Surgical H&P Exam: Normal: HEENT, Normal: Heart, Normal: Lungs, Normal: Extremities, Normal: Abdomen, Normal: Skin and Normal: Neurological Plan Diagnosis/Plan: Unchanged I have reviewed the history and physical and performed a pertinent physical examination on my patient. No changes have occurred unless specified. Time Spent With Patient Time: Total time managing care of this patient today ____ minutes.
[2025-10-20 09:55] VITALS: BP 99/62; PULSE 80; RESP 12; TEMP 36.6; O2SAT 97
[2025-10-20 10:10] VITALS: BP 126/81; PULSE 75; RESP 18; TEMP 36.8; O2SAT 98
--- NOTE | 2025-10-20 10:57 | OP_ITS ---
DATE OF SERVICE: 10/20/2025 SURGEON: Rene Abreu MD INDICATIONS: Abnormal upper GI series. PREOPERATIVE DIAGNOSIS: POSTOPERATIVE DIAGNOSIS: PROCEDURE PERFORMED: Upper endoscopy with biopsy. ESTIMATED BLOOD LOSS: COMPLICATIONS: ANESTHESIA: Monitored anesthesia care. ASSISTANTS: SPECIMENS: DESCRIPTION OF PROCEDURE: History and physical was performed. The risks and benefits of the procedure were explained to the patient. Informed consent was obtained. The patient was placed in left lateral decubitus position. The Olympus video gastroscope was introduced into the esophagus, stomach, and duodenum. Examination was performed. The scope was removed. He tolerated the procedure well and was returned to recovery room in stable condition. FINDINGS: 1. Esophagus: The esophagus showed an irregular EG junction. There was no evidence of Lor esophagitis. Biopsies were obtained from the body of the esophagus and from the EG junction. 2. Stomach: The stomach showed no evidence of masses, ulcers, or polyps. Antral biopsies were obtained. 3. Duodenum: The bulb and second portion were normal. IMPRESSION: Normal upper endoscopy. RECOMMENDATION: Follow up the biopsy results. MD TAMMI Ryder/TERESAL / [id number]
== END 2025-10-20 11:00 | disposition home or self-care (01) ==
PROVIDERS: PCP Internal Medicine; Visit Provider Internal Medicine Gastroenterology
PROC: 0DJ08ZZ Inspection of Upper Intestinal Tract, Via Natural or Artificial Opening Endoscopic (ICD-10-PCS; CPT 43235; principal; 2025-10-20 09:20)
DX: R93.3 Abnormal findings on diagnostic imaging of other parts of digestive tract (principal); K22.89 Other specified disease of esophagus; K22.70 Barrett's esophagus without dysplasia; Z80.0 Family history of malignant neoplasm of digestive organs; J44.9 Chronic obstructive pulmonary disease, unspecified; E78.5 Hyperlipidemia, unspecified; G62.9 Polyneuropathy, unspecified; N40.0 Benign prostatic hyperplasia without lower urinary tract symptoms; F10.20 Alcohol dependence, uncomplicated; F17.210 Nicotine dependence, cigarettes, uncomplicated; Z79.899 Other long term (current) drug therapy
CPT/HCPCS: 43239; 88305; 88342; J2003; J2704